=== PATIENT | female | born 1950 | race Two or more races ===

== ENCOUNTER 2016-12-14 14:14 | Inpatient (IN) | payer MEDICAID ==
[~2016-12-14] VITALS: Ht 160 cm; Wt 68.0 kg
[~2016-12-14 14:14] MED LIST: CATAPRES0.1 MG ORAL; COLACE100 MG ORAL; COZAAR25 MG ORAL; FOLIC ACID1 MG ORAL; HYDRALAZINE HCL25 M1 ORAL; HYDRALAZINE HCL50 MG ORAL; LIPITOR20 MG ORAL; MEGACE ORA400 MG/10 PO; MOM30 ML ORAL; NEPHROVITE1 TAB ORAL; NEURONTIN100 MG ORAL; NITROSTAT0.4 M1 SL; NORCO 5-325 TA1 EAC1 ORAL; NORVASC5 MG ORAL; PROCRIT3000 UNIT/ SUBQ; PROTONIX40 MG ORAL; TRAVOPROST 0.02.5 ML BOTH EYES; TYLENOL325 MG ORAL; VITAMIN C500 M1 ORAL; ZAROXOLYN2.5 MG ORAL; [UNRECOGNIZED DRUG - OTHER]; imdur; labetolol PO; mylanta; prostat PO
--- NOTE | 2016-12-14 14:42 | Emergency Room Report ---
History of Present Illness General Chief Complaint: Dyspnea/Respdistress Source: Patient, Medical Record, EMS Present Illness HPI This patient presents from a long term facility. The patient has a history of congestive heart failure, end-stage renal disease and is dialysis dependent, hypertension. 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 She has a history of diabetes. Per report, the patient was going to be transferred to dialysis today and the transfer team would not transfer the patient because her oxygen saturation was too low. So, 911 was called this patient was brought here for concern of low oxygen saturations. The patient denies shortness of breath or chest pain. The patient denies fever or chills. The patient states that she is fatigued. She has no other complaints. Allergies: Coded Allergies: No Known Allergies (Verified , 04/11/08) Patient History Past Medical History: see triage record, old chart reviewed, DM, HTN, [place], CAD, CHF, arrhyth, pneumonia, GERD, renal disease, dialysis Past Surgical History: other - Leo MCDUFFIE, Leo SMART Social History: Denies: alcohol use, drug use, smoking Last Menstrual Period: N/A Reviewed Nursing Documentation: PMH: Agreed, PSxH: Agreed Nursing Documentation-PMH Hx Diabetes: Yes Hx Dialysis: Yes Hx Neurological Problems: Yes Hx Cerebrovascular Accident: Yes Hx Dementia: Yes Review of Systems All Other Systems: negative except mentioned in HPI Physical Exam Vital Signs Date Time Temp Pulse Resp B/P Pulse Ox O2 Delivery O2 Flow Rate FiO2 12/14/16 14:05 98.4 80 20 162/78 99 Nasal Cannula Sp02 EP Interpretation: reviewed, abnormal General Appearance: no apparent distress, alert, GCS 15, non-toxic Head: normocephalic, atraumatic Eyes: bilateral eye PERRL, bilateral eye normal inspection ENT: hearing grossly normal, normal pharynx, no angioedema, normal voice Neck: full range of motion, supple/symm/no masses Respiratory: chest non-tender, lungs clear, normal breath sounds, no respiratory distress, no retraction, no accessory muscle use, speaking full sentences Cardiovascular #1: regular rate, rhythm, no edema Gastrointestinal: normal bowel sounds, non tender, soft, non-distended, no guarding, no rebound, other - obese Rectal: deferred Musculoskeletal: non-tender, other - At baseline Neurologic: alert, oriented x3, responsive, speech normal, other - At baseline. No focal findings. Psychiatric: mood/affect normal Skin: warm/dry, well hydrated Medical Decision Making Diagnostic Impression: Primary Impression: Fluid overload Additional Impression: Acute exacerbation of CHF (congestive heart failure) ER Course This patient has a known history of end-stage renal disease and is dialysis dependent. She presents with fluid overload and CHF exacerbation. Initially she did have a that she sat on remainder of 89%. However, she remained in the high 90s on several liters of nasal cannula. Regardless, this patient will need to get dialysis that she now cannot return to this for the dialysis clinic and so she will be admitted for dialysis and fluid overload. Labs Test 12/14/16 15:20 White Blood Count 6.1 K/UL (4.8-10.8) Red Blood Count 3.40 M/UL (4.20-5.40) Hemoglobin 10.9 G/DL (12.0-16.0) Hematocrit 34.9 % (37.0-47.0) Mean Corpuscular Volume 103 FL (80-99) Mean Corpuscular Hemoglobin 32.1 PG (27.0-31.0) Mean Corpuscular Hemoglobin Concent 31.2 G/DL (32.0-36.0) Red Cell Distribution Width 17.5 % (11.6-14.8) Platelet Count 94 K/UL (150-450) Mean Platelet Volume 10.3 FL (6.5-10.1) Neutrophils (%) (Auto) % (45.0-75.0) Lymphocytes (%) (Auto) % (20.0-45.0) Monocytes (%) (Auto) % (1.0-10.0) Eosinophils (%) (Auto) % (0.0-3.0) Basophils (%) (Auto) % (0.0-2.0) Prothrombin Time 10.8 SEC (9.30-11.50) Prothromb Time International Ratio 1.0 (0.9-1.1) Activated Partial Thromboplast Time 27 SEC (23-33) Sodium Level 134 mEQ/L (135-145) Potassium Level 5.5 mEQ/L (3.4-4.9) Chloride Level 92 mEQ/L (98-107) Carbon Dioxide Level 24 mEQ/L (20-30) Anion Gap 18 (5-15) Blood Urea Nitrogen 46 mg/dL (7-23) Creatinine 4.7 mg/dL (0.5-0.9) Estimat Glomerular Filtration Rate 9.3 mL/min (>60) Glucose Level 245 mg/dL (74-106) Lactic Acid Level 1.20 mmol/L (0.66-2.22) Calcium Level 8.5 mg/dL (8.6-10.2) Total Bilirubin 0.3 mg/dL (0.0-1.2) Aspartate Amino Transf (AST/SGOT) 14 U/L (5-40) Alanine Aminotransferase (ALT/SGPT) 8 U/L (3-33) Alkaline Phosphatase 88 U/L (35-104) Troponin I < 0.30 ng/mL (<=0.30) Total Protein 6.7 g/dL (6.6-8.7) Albumin 3.3 g/dL (3.5-5.2) Globulin 3.4 g/dL Albumin/Globulin Ratio 0.9 (1.0-2.7) EKG Diagnostic Results Rate: normal Rhythm: NSR ST Segments: other - NSST findings Other Impression 80's Rhythm Strip Diag. Results EP Interpretation: yes Rate: 80's Rhythm: NSR, no PVC's, no ectopy Chest X-Ray Diagnostic Results Chest X-Ray Ordered: Yes # of Views/Limited/Complete: 1 View Interpretation: no pneumothorax, other Indication: Shortness of Breath Impression: Other - Diffuse patchy opacities Date Electronically Signed: Dec 14, 2016 Time Electronically Signed: 17:15 Interpreting ER Physician: Prudencio Last Vital Signs Date Time Temp Pulse Resp B/P Pulse Ox O2 Delivery O2 Flow Rate FiO2 12/14/16 14:05 98.4 80 20 162/78 99 Nasal Cannula Disposition: ADMITTED INPATIENT Condition: Serious Referrals: NON PHYSICIAN (PCP) CARSON PRADO D.O. Dec 14, 2016 14:42
[2016-12-14 15:05] VITALS: BP 126/72
[2016-12-14 16:13] LABS: MEAN CORPUSCULAR HEMOGLOBIN 32.1 PG (27.0-31.0); MEAN CORPUSCULAR HGB CONC 31.2 G/DL (32.0-36.0); MEAN CORPUSCULAR VOLUME 103 FL (80-99); MEAN PLATELET VOLUME 10.3 FL (6.5-10.1); PLATELET COUNT 94 K/UL (150-450); RED CELL DISTRIBUTION WIDTH 17.5 % (11.6-14.8); WHITE BLOOD COUNT 6.1 K/UL (4.8-10.8)
[2016-12-14 16:14] LABS: PROTHROMBIN TIME 10.8 SEC (9.30-11.50); TROPONIN I < 0.30 ng/mL (<=0.30)
[2016-12-14 16:16] LABS: ALBUMIN/GLOBULIN RATIO 0.9 (1.0-2.7); CALCIUM 8.5 mg/dL (8.6-10.2); CREATININE 4.7 mg/dL (0.5-0.9); GLOMERULAR FILTRATION RATE 9.3 mL/min (>60); POTASSIUM 5.5 mEQ/L (3.4-4.9); TOTAL PROTEIN 6.7 g/dL (6.6-8.7)
[2016-12-14 17:18] VITALS: BP 140/87
--- NOTE | 2016-12-14 18:26 | Diagnostic Imaging Report ---
Indication: SOB Technique: One view of the chest Comparison: March 28, 2015 Findings: There is diffuse bilateral pulmonary interstitial and alveolar edema, right greater than left pleural effusions. Interim removal of previously demonstrated dialysis catheter Impression: Bilateral pulmonary edema and bilateral pleural effusions
[2016-12-14 19:10] VITALS: BP 103/80
[2016-12-14] MEDS ORDERED: ASPIRIN81 MG ORAL (20:13)
[2016-12-14] MEDS ORDERED: ASCORBIC ACID250 M1 ORAL (20:13)
[2016-12-14] MEDS ORDERED: ARTIFICIAL TEAR15 M2 OP (20:13)
[2016-12-14] MEDS ORDERED: ISOSORBIDE MONO30 M1 PO (20:13)
[2016-12-14] MEDS ORDERED: NORMODYNE200 MG ORAL (20:13)
[2016-12-14] MEDS ORDERED: BRIMONIDINE TART5 ML BOTH EYES (20:13)
[2016-12-14] MEDS ORDERED: LORazepam Inj 2mg/ml 1ml IM ONE (20:15)
[2016-12-14 20:52] LABS: ANISOCYTOSIS 1+; BASOPHILS % (MANUAL) 1 % (0-2); EOSINOPHILS % (MANUAL) 3 % (0-3); LYMPHOCYTES % (MANUAL) 13 % (20-45); NEUTROPHILS % (MANUAL) 77 % (45-75); TOTAL CELLS COUNTED 100
[2016-12-14 20:53] LABS: BAND NEUTROPHILS % (MANUAL) 0 % (0-8); HYPOCHROMASIA 1+; PLATELET ESTIMATE DECREASED; PLATELET MORPHOLOGY NORMAL
[2016-12-14 20:55] VITALS: BP 121/94
[2016-12-14] MEDS ORDERED: DuoNeb 0.5-3(2.5)mg/3ml neb HHN PRN (21:15)
[2016-12-14] MEDS ORDERED: Miralax 17gm pkt ORAL PRN (21:15)
[2016-12-14] MEDS: HydrALAZINE 25mg tab ORAL SCH (22:00)
[2016-12-14 22:47] VITALS: BP 145/57
[2016-12-14 22:54] LABS: APPEARANCE,URINE CLEAR; KETONES,URINE NEGATIVE (NEGATIVE); LEUKOCYTE ESTERASE ,URINE NEGATIVE (NEGATIVE); NITRITE,URINE NEGATIVE (NEGATIVE); PH,URINE 8 (4.5-8.0); PROTEIN,URINE 4+ (NEGATIVE); UROBILINOGEN,URINE NORMAL MG/DL (0.0-1.0)
[2016-12-14 23:21] LABS: RBC,URINE 0-2 /HPF (0 - 2); SQUAMOUS EPITHELIAL CELL,UR FEW /LPF (NONE/OCC); WBC,URINE 0-2 /HPF (0 - 2)
[2016-12-15] VITALS (12 sets, daily range): BP systolic 94–172; BP diastolic 47–92
[2016-12-15] MEDS ORDERED: LORazepam Inj 2mg/ml 1ml IV ONE ×2 (00:30→08:00)
[2016-12-15] MEDS: HydrALAZINE 25mg tab ORAL SCH ×3 (05:53→22:00)
[2016-12-15 06:26] LABS: MEAN CORPUSCULAR HEMOGLOBIN 32.9 PG (27.0-31.0); MEAN CORPUSCULAR VOLUME 103 FL (80-99); MEAN PLATELET VOLUME 9.5 FL (6.5-10.1); PLATELET COUNT 93 K/UL (150-450); RED BLOOD COUNT 3.47 M/UL (4.20-5.40); RED CELL DISTRIBUTION WIDTH 17.4 % (11.6-14.8); WHITE BLOOD COUNT 6.7 K/UL (4.8-10.8)
[2016-12-15 06:39] LABS: TROPONIN I < 0.30 ng/mL (<=0.30)
[2016-12-15 06:41] LABS: CREATININE 5.1 mg/dL (0.5-0.9); GLOMERULAR FILTRATION RATE 8.5 mL/min (>60); PHOSPHORUS 2.6 mg/dL (2.5-4.8); POTASSIUM 5.7 mEQ/L (3.4-4.9)
[2016-12-15 08:50] LABS: ANISOCYTOSIS 1+; BAND NEUTROPHILS % (MANUAL) 0 % (0-8); BASOPHILS % (MANUAL) 1 % (0-2); EOSINOPHILS % (MANUAL) 0 % (0-3); HYPOCHROMASIA 1+; LYMPHOCYTES % (MANUAL) 7 % (20-45); MACROCYTES 1+; NEUTROPHILS % (MANUAL) 86 % (45-75); PLATELET ESTIMATE DECREASED; TOTAL CELLS COUNTED 100
[2016-12-15 08:51] LABS: PLATELET MORPHOLOGY NORMAL
[2016-12-15] MEDS: Heparin 5000 units/ml inj SUBQ SCH ×2 (09:00→20:47)
[2016-12-15] MEDS ORDERED: Metolazone 5mg tab ORAL SCH (09:00)
[2016-12-15] MEDS: Losartan 25mg tab ORAL SCH (09:47)
[2016-12-15] MEDS: Labetalol 200mg tab ORAL SCH ×2 (09:48→20:44)
[2016-12-15] MEDS ORDERED: HUMALOG100 UNIT/1 SUBQ (11:34)
--- NOTE | 2016-12-15 11:51 | Consultation ---
Consult Note Consult Note asked to eval for HD management Patient non historian has a right side permacath in place This patient presents from a group home facility. The patient has a history of congestive heart failure, end-stage renal disease and is dialysis dependent, hypertension. 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 She has a history of diabetes. Per report, the patient was going to be transferred to dialysis today and the transfer team would not transfer the patient because her oxygen saturation was too low. So, 911 was called this patient was brought here for concern of low oxygen saturations. The patient denies shortness of breath or chest pain. The patient denies fever or chills. The patient states that she is fatigued. She has no other complaints. Past Medical History: see triage record, old chart reviewed, DM, HTN, [place], CAD, CHF, arrhyth, pneumonia, GERD, renal disease, dialysis Past Surgical History: other - L. AKA, L. AEA Hx Diabetes: Yes Hx Dialysis: Yes Hx Neurological Problems: Yes Hx Cerebrovascular Accident: Yes Hx Dementia: Yes Vital Signs Date Time Temp Pulse Resp B/P Pulse Ox O2 Delivery O2 Flow Rate FiO2 12/14/16 14:05 98.4 80 20 162/78 99 Nasal Cannula examined- data reviewed Assessment/Plan Primary Impression: Fluid overload, in ESRD patinet with High K Additional Impression: Acute exacerbation of CHF (congestive heart failure) h/o DM HTN Encephalopathy Plan: HD Stat ordered 12/14 at 17.21 pm still not carried out !! discussed with RN Adjust BP meds- Stop mindaltering meds- per orders DANIEL MARIEE Dec 15, 2016 11:51
--- NOTE | 2016-12-15 15:09 | History and Physical ---
History of Present Illness General Date patient seen: Dec 15, 2016 Reason for Hospitalization: Dyspnea/Respdistress Present Illness HPI 66 year old female with hx of CAD, DM, ESRF, amputation of Left arm and leg, custodial resident presents because her oxygen saturation was too low. The patient denies shortness of breath or chest pain. Her pulse oximeter was 60 %. The patient denies fever or chills. The patient states that she is fatigued. Initial CXR showed that she has extensive pulmonary edema. Allergies: Coded Allergies: No Known Allergies (Verified , 04/11/08) Medication History Scheduled Amlodipine Besylate (Norvasc), 5 MG ORAL DAILY, (Reported) Ascorbic Acid* (Vitamin C*), 500 MG ORAL DAILY, (Reported) Ascorbic Acid* (Ascorbic Acid*), Unknown Dose ORAL DAILY, (Reported) Aspirin* (Aspirin*), 81 MG ORAL DAILY, (Reported) Atorvastatin Calcium* (Lipitor*), 20 MG ORAL BEDTIME, (Reported) Brimonidine Tartrate* (Alphagan*), 1 DROP BOTH EYES TID, (Reported) Docusate Sodium* (Colace*), 100 MG ORAL TWICE A DAY, (Reported) Epoetin Alireza (Procrit), 3,000 UNIT SUBQ 3XW, (Reported) Folic Acid* (Folic Acid*), 1 MG ORAL DAILY, (Reported) Gabapentin* (Neurontin*), 100 MG ORAL TID, (Reported) Hydralazine Hcl* (Hydralazine Hcl*), 25 MG ORAL Q8HR Isosorbide Mononitrate (Isosorbide Mononitrate Er), 30 MG PO DAILY, (Reported) Labetalol HCl (Labetalol HCl), 200 MG ORAL EVERY 12 HOURS, (Reported) Losartan Potassium* (Cozaar*), 25 MG ORAL DAILY, (Reported) Megestrol Acetate (Megestrol Acetate), 200 MG PO BID, (Reported) Metolazone (Metolazone), 5 MG ORAL DAILY, (Reported) Pantoprazole* (Protonix*), 40 MG ORAL DAILY, (Reported) Polyvinyl Alcohol (Artificial Tears), 1 DROP OP TID, (Reported) Travoprost (Benzalkonium) (Travoprost 0.004% Eye Drop), 1 DROP BOTH EYES HS, ( Reported) Vitamin B Cmplx/Vit C/Folic AC (Nephro-Nathanael Tablet), 1 TAB ORAL DAILY, (Reported ) [labetolol], 200 MG PO BID, (Reported) [prostat], 30 ML PO TID, (Reported) Scheduled PRN Acetaminophen (Tylenol), 500 MG ORAL Q4HR PRN for For Pain, (Reported) Clonidine Hcl* (Catapres*), 0.1 MG ORAL EVERY 6 HOURS PRN for For High Blood Pressure, (Reported) Hydrocodone Bit/Acetaminophen 5-325* (Blanco 5-325 Tablet*), 1 TAB ORAL Q6HR PRN for For Pain, (Reported) Magnesium Hydroxide (Milk of Magnesia), 30 ML ORAL Q12HR PRN for Constipation, ( Reported) Nitroglycerin (Nitrostat), 0.4 MG SL Q5M X3 DOSES PRN for For Pain, (Reported) Miscellaneous Medications Insulin Lispro (Humalog), 0 SUBQ, (Reported) [imdur], (Reported) [mylanta ], (Reported) [reg insuling ss], (Reported) Patient History Healthcare decision maker Resuscitation status Advanced Directive on File Past Medical/Surgical History Past Medical/Surgical History: (1) Anemia (2) ESRD (end stage renal disease) on dialysis (3) Hypertension (4) Restless Review of Systems All Other Systems: negative except mentioned in HPI Physical Exam General Appearance: WD/WN, no apparent distress Lines, tubes and drains: peripheral HEENT: normocephalic, atraumatic Neck: non-tender, normal alignment Respiratory/Chest: chest wall non-tender, lungs clear Cardiovascular/Chest: normal peripheral pulses, normal rate Abdomen: normal bowel sounds, non tender Extremities: other - left leg and arm amputated Skin Exam: normal pigmentation Neurologic: woods laborer II-XII grossly normal Last 24 Hour Vital Signs Date Time Temp Pulse Resp B/P Pulse Ox O2 Delivery O2 Flow Rate FiO2 12/15/16 12:00 79 12/15/16 11:48 97.3 78 20 143/88 Room Air 12/15/16 09:48 87 138/83 12/15/16 09:48 87 138/83 12/15/16 09:47 138/83 12/15/16 09:30 91 12/15/16 08:06 98.4 87 20 138/83 96 Nasal Cannula 4.0 98 12/15/16 08:02 98.4 12/15/16 08:00 97.5 91 22 143/92 93 Nasal Cannula 2.0 12/15/16 07:02 87 20 138/83 96 Nasal Cannula 4.0 12/15/16 05:55 89 22 129/63 96 Nasal Cannula 4.0 12/15/16 05:53 129/63 12/15/16 04:13 91 24 143/92 96 Nasal Cannula 4.0 12/15/16 02:45 93 22 94/78 99 Nasal Cannula 4.0 12/15/16 00:37 86 21 151/47 96 Nasal Cannula 4.0 12/14/16 22:47 80 22 145/57 98 Nasal Cannula 4.0 12/14/16 22:00 145/57 12/14/16 20:55 83 19 121/94 97 Nasal Cannula 4.0 12/14/16 19:10 83 18 103/80 97 Nasal Cannula 3.0 12/14/16 17:18 81 140/87 12/14/16 15:05 20 126/72 96 Nasal Cannula 12/14/16 15:05 84 18 Nasal Cannula 2.0 98 Intake and Output 12/14/16 12/15/16 19:00 07:00 Output Total 160 ml Balance -160 ml Output Urine Total 160 ml Laboratory Tests Test 12/14/16 15:20 12/14/16 22:20 12/15/16 06:10 White Blood Count 6.1 K/UL (4.8-10.8) 6.7 K/UL (4.8-10.8) Red Blood Count 3.40 M/UL (4.20-5.40) L 3.47 M/UL (4.20-5.40) L Hemoglobin 10.9 G/DL (12.0-16.0) L 11.4 G/DL (12.0-16.0) L Hematocrit 34.9 % (37.0-47.0) L 35.7 % (37.0-47.0) L Mean Corpuscular Volume 103 FL (80-99) H 103 FL (80-99) H Mean Corpuscular Hemoglobin 32.1 PG (27.0-31.0) H 32.9 PG (27.0-31.0) H Mean Corpuscular Hemoglobin Concent 31.2 G/DL (32.0-36.0) L 32.0 G/DL (32.0-36.0) Red Cell Distribution Width 17.5 % (11.6-14.8) H 17.4 % (11.6-14.8) H Platelet Count 94 K/UL (150-450) L 93 K/UL (150-450) L Mean Platelet Volume 10.3 FL (6.5-10.1) H 9.5 FL (6.5-10.1) Neutrophils (%) (Auto) % (45.0-75.0) % (45.0-75.0) Lymphocytes (%) (Auto) % (20.0-45.0) % (20.0-45.0) Monocytes (%) (Auto) % (1.0-10.0) % (1.0-10.0) Eosinophils (%) (Auto) % (0.0-3.0) % (0.0-3.0) Basophils (%) (Auto) % (0.0-2.0) % (0.0-2.0) Differential Total Cells Counted 100 100 Neutrophils % (Manual) 77 % (45-75) H 86 % (45-75) H Lymphocytes % (Manual) 13 % (20-45) L 7 % (20-45) L Monocytes % (Manual) 6 % (1-10) 6 % (1-10) Eosinophils % (Manual) 3 % (0-3) 0 % (0-3) Basophils % (Manual) 1 % (0-2) 1 % (0-2) Band Neutrophils 0 % (0-8) 0 % (0-8) Platelet Estimate Decreased L Decreased L Platelet Morphology Normal Normal Hypochromasia 1+ 1+ Anisocytosis 1+ 1+ Prothrombin Time 10.8 SEC (9.30-11.50) Prothromb Time International Ratio 1.0 (0.9-1.1) Activated Partial Thromboplast Time 27 SEC (23-33) Sodium Level 134 mEQ/L (135-145) L 135 mEQ/L (135-145) Potassium Level 5.5 mEQ/L (3.4-4.9) H 5.7 mEQ/L (3.4-4.9) H Chloride Level 92 mEQ/L (98-107) L 93 mEQ/L (98-107) L Carbon Dioxide Level 24 mEQ/L (20-30) 24 mEQ/L (20-30) Anion Gap 18 (5-15) H 18 (5-15) H Blood Urea Nitrogen 46 mg/dL (7-23) H 49 mg/dL (7-23) H Creatinine 4.7 mg/dL (0.5-0.9) H 5.1 mg/dL (0.5-0.9) H Estimat Glomerular Filtration Rate 9.3 mL/min (>60) 8.5 mL/min (>60) Glucose Level 245 mg/dL (74-106) H 163 mg/dL (74-106) H Lactic Acid Level 1.20 mmol/L (0.66-2.22) Calcium Level 8.5 mg/dL (8.6-10.2) L 9.0 mg/dL (8.6-10.2) Total Bilirubin 0.3 mg/dL (0.0-1.2) Aspartate Amino Transf (AST/SGOT) 14 U/L (5-40) Alanine Aminotransferase (ALT/SGPT) 8 U/L (3-33) Alkaline Phosphatase 88 U/L (35-104) Troponin I < 0.30 ng/mL (<=0.30) < 0.30 ng/mL (<=0.30) Total Protein 6.7 g/dL (6.6-8.7) Albumin 3.3 g/dL (3.5-5.2) L 3.8 g/dL (3.5-5.2) Globulin 3.4 g/dL Albumin/Globulin Ratio 0.9 (1.0-2.7) L Urine Color Yellow Urine Appearance Clear Urine pH 8 (4.5-8.0) Urine Specific [place] 1.010 (1.005-1.035) Urine Protein 4+ (NEGATIVE) H Urine Glucose (UA) 2+ (NEGATIVE) H Urine Ketones Negative (NEGATIVE) Urine Occult Blood Negative (NEGATIVE) Urine Nitrite Negative (NEGATIVE) Urine Bilirubin Negative (NEGATIVE) Urine Urobilinogen Normal MG/DL (0.0-1.0) Urine Leukocyte Esterase Negative (NEGATIVE) Urine RBC 0-2 /HPF (0 - 2) Urine WBC 0-2 /HPF (0 - 2) Urine Squamous Epithelial Cells Few /LPF (NONE/OCC) Urine Bacteria None /HPF (NONE) Macrocytosis 1+ Phosphorus Level 2.6 mg/dL (2.5-4.8) Height (Feet): 5 Height (Inches): 3.00 Weight (Pounds): 150 Medications Current Medications Medications (Trade) Dose Ordered Sig/Jagdish Route PRN Reason Start Time Stop Time Status Last Admin Dose Admin Acetaminophen (Tylenol) 650 mg Q4H PRN ORAL Fever 12/14/16 21:15 01/13/17 21:14 12/15/16 07:54 Albuterol/ Ipratropium (DuoNeb 0.5-3(2.5)mg/3ml) 3 ml Q4H PRN HHN Shortness of Breath 12/14/16 21:15 12/19/16 21:14 Amlodipine Besylate (Norvasc) 5 mg DAILY ORAL 12/15/16 09:00 01/14/17 08:59 12/15/16 09:48 Atorvastatin Calcium (Lipitor) 20 mg BEDTIME ORAL 12/15/16 21:00 01/14/17 20:59 Clonidine HCl (Catapres) 0.1 mg Q6H PRN ORAL For High Blood Pressure 12/14/16 21:15 01/13/17 21:14 Dextrose (Dextrose 50%) STAT PRN IV Hypoglycemia 12/14/16 21:15 01/13/17 21:14 Heparin Sodium (Porcine) (Heparin 5000 units/ml) 5,000 units EVERY 12 HOURS SUBQ 12/15/16 09:00 01/14/17 08:59 Hydralazine HCl (Apresoline) 25 mg Q8HR ORAL 12/14/16 22:00 01/13/17 21:59 Labetalol HCl (Normodyne) 200 mg EVERY 12 HOURS ORAL 12/15/16 09:00 01/14/17 08:59 12/15/16 09:48 Losartan Potassium (Cozaar) 25 mg DAILY ORAL 12/15/16 09:00 01/14/17 08:59 12/15/16 09:47 Ondansetron HCl (Zofran) 4 mg Q6H PRN IVP Nausea & Vomiting 6/20/17 21:15 01/13/17 21:14 Polyethylene Glycol (Miralax) 17 gm DAILYPRN PRN ORAL Constipation 12/14/16 21:15 01/13/17 21:14 Temazepam (Restoril) 15 mg HSPRN PRN ORAL Insomnia 12/14/16 21:15 12/21/16 21:14 Assessment/Plan Problem List: (1) Acute respiratory failure ICD Codes: J96.00 - Acute respiratory failure, unspecified whether with hypoxia or hypercapnia SNOMED: 29483476 (2) Acute exacerbation of CHF (congestive heart failure) ICD Codes: I50.9 - Heart failure, unspecified SNOMED: 80469073 (3) ESRD (end stage renal disease) on dialysis ICD Codes: N18.6 - End stage renal disease; Z99.2 - Dependence on renal dialysis SNOMED: 062562823 (4) Hypertension ICD Codes: I10 - Essential (primary) hypertension SNOMED: 12889377 Assessment/Plan HD roni monitor BP check electrolytes psych evaluation for depression and restless ness dvt prophylaxis VERONICA AMIN Dec 15, 2016 15:09
--- NOTE | 2016-12-15 15:35 | Cardiology Report ---
APPROVED REPORT EXAM: Two-dimensional and M-mode echocardiogram with Doppler and color Doppler. INDICATION Left ventricular function M-Mode DIMENSIONS IVSd1.0 (0.7-1.1cm)Left Atrium (MM)4.6 (1.6-4.0cm) LVDd5.4 (3.5-5.6cm)Aortic Root2.6 (2.0-3.7cm) PWd1.1 (0.7-1.1cm)Aortic Cusp Exc.1.6 (1.5-2.0cm) LVDs4.0 (2.5-4.0cm) PWs1.4 cm Normal left ventricular chamber size. Mild global LV hypokinesis. Left ventricular ejection fraction estimated to be 40%. Normal left ventricular hypertrophy. No evidence of pericardial fat or effusion. Right cardiac chamber sizes are within normal limits. Mild left atrial enlargement by 2D. Focal aortic valve sclerosis with adequate cusp excursion Thickened mitral valve leaflets with normal excursion. Mitral annulus and aortic root calcification. Pulmonic valve not well visualized. Normal tricuspid valve structure. IVC not obtainable. A color flow and spectral Doppler study was performed and revealed: Trace aortic regurgitation. Trace mitral regurgitation. Normal left ventricular diastolic dysfunction. Moderate tricuspid regurgitation. Tricuspid systolic velocities suggests peak right ventricular systolic pressure of 40 mmHg Consistent with mild pulmonary hypertension. Pulmonic regurgitation present.
--- NOTE | 2016-12-15 15:40 | Diagnostic Imaging Report ---
Indication: DYSPNEA Technique: One view of the chest Comparison: 12/14/2016 Findings: Body habitus limits evaluation. There is suggestion of worsening parenchymal disease and possibly increased pleural fluid in the right lung. Interstitial and alveolar parenchymal disease in the left lung persists. Cardiomegaly persists. Impression: Suspect worsening parenchymal infiltrate or edema in the right lung and possibly worsening pleural fluid, over one day
--- NOTE | 2016-12-15 16:38 | Cardiology Report ---
APPROVED REPORT EKG Measurement Heart [id number] Normal sinus rhythm Nonspecific T wave abnormality Abnormal ECG
[2016-12-15] MEDS: Atorvastatin 20mg tab ORAL SCH (20:44)
[2016-12-15] MEDS: NovoLOG Insulin Flexpen SUBQ SCH (20:47)
[2016-12-16 04:07] VITALS: BP 106/75
[2016-12-16] MEDS: NovoLOG Insulin Flexpen SUBQ SCH ×4 (05:58→20:58)
[2016-12-16] MEDS: HydrALAZINE 25mg tab ORAL SCH ×3 (06:00→22:00)
[2016-12-16 07:30] LABS: TROPONIN I < 0.30 ng/mL (<=0.30)
[2016-12-16 07:55] LABS: MEAN CORPUSCULAR HEMOGLOBIN 34.3 PG (27.0-31.0); MEAN CORPUSCULAR HGB CONC 31.8 G/DL (32.0-36.0); MEAN CORPUSCULAR VOLUME 108 FL (80-99); MEAN PLATELET VOLUME 9.3 FL (6.5-10.1); PLATELET COUNT 57 K/UL (150-450); RED BLOOD COUNT 3.23 M/UL (4.20-5.40); RED CELL DISTRIBUTION WIDTH 17.4 % (11.6-14.8); WHITE BLOOD COUNT 5.9 K/UL (4.8-10.8)
[2016-12-16 07:58] LABS: ALANINE AMINOTRANSFERASE 10 U/L (3-33); ALBUMIN/GLOBULIN RATIO 1.3 (1.0-2.7); ANION GAP 20 (5-15); ASPARTATE AMINO TRANSFERASE 19 U/L (5-40); CALCIUM 8.2 mg/dL (8.6-10.2); CARBON DIOXIDE 25 mEQ/L (20-30); CHLORIDE 93 mEQ/L (98-107); CHOLESTEROL 94 mg/dL (< 200); CHOLESTEROL/HDL RATIO 1.9 (3.3-4.4); CREATININE 4.3 mg/dL (0.5-0.9); CRP QUANT 2.4 mg/dL (< 0.5); GLOMERULAR FILTRATION RATE 10.3 mL/min (>60); HEMOLYSIS 13; LDL CHOLESTEROL (CALC.) 30 mg/dL (60-99); MAGNESIUM 2.5 mg/dL (1.7-2.5); PHOSPHORUS 2.6 mg/dL (2.5-4.8); POTASSIUM 4.6 mEQ/L (3.4-4.9); SODIUM 138 mEQ/L (135-145); TOTAL PROTEIN 6.5 g/dL (6.6-8.7)
[2016-12-16 08:00] VITALS: BP 152/69
[2016-12-16 08:21] LABS: HEMOGLOBIN A1C 7.5 % (< 6.0)
[2016-12-16] MEDS: Heparin 5000 units/ml inj SUBQ SCH ×2 (09:00→21:00)
[2016-12-16] MEDS: Losartan 25mg tab ORAL SCH (09:14)
[2016-12-16] MEDS: Labetalol 200mg tab ORAL SCH ×2 (09:16→20:56)
[2016-12-16 09:48] LABS: ANISOCYTOSIS 1+; BAND NEUTROPHILS % (MANUAL) 0 % (0-8); BASOPHILS % (MANUAL) 0 % (0-2); EOSINOPHILS % (MANUAL) 0 % (0-3); LYMPHOCYTES % (MANUAL) 16 % (20-45); MACROCYTES 1+; NEUTROPHILS % (MANUAL) 77 % (45-75); PLATELET ESTIMATE DECREASED; PLATELET MORPHOLOGY NORMAL; TOTAL CELLS COUNTED 100
[2016-12-16 12:00] VITALS: BP 147/65
--- NOTE | 2016-12-16 13:08 | General Progress Note ---
Assessment/Plan Assessment/Plan Primary Impression: Fluid overload, in ESRD patinet with High K Improved after HD Additional Impression: Acute exacerbation of CHF (congestive heart failure) h/o DM HTN Encephalopathy Plan: HD done 12/15 next 12/17 Adjust BP meds- Stop mind altering meds- per orders Subjective ROS Limited/Unobtainable: No Constitutional: Reports: malaise Allergies: Coded Allergies: No Known Allergies (Verified , 04/11/08) Objective Last 24 Hour Vital Signs Date Time Temp Pulse Resp B/P Pulse Ox O2 Delivery O2 Flow Rate FiO2 12/16/16 12:00 99.5 77 18 147/65 94 Room Air 12/16/16 09:16 78 152/69 12/16/16 09:14 152/69 12/16/16 09:14 78 152/69 12/16/16 08:00 97.7 78 18 152/69 99 Room Air 12/16/16 08:00 79 12/16/16 06:00 146/63 12/16/16 04:07 98.8 81 19 106/75 94 Room Air 12/16/16 04:00 66 12/16/16 00:00 82 12/15/16 23:56 98.7 79 18 119/78 93 Room Air 12/15/16 22:00 114/57 12/15/16 20:44 84 113/64 12/15/16 20:05 98.2 84 19 113/64 95 Room Air 12/15/16 18:12 Nasal Cannula 2.0 98 12/15/16 18:08 Nasal Cannula 12/15/16 17:30 86 18 130/79 Nasal Cannula 2.0 12/15/16 16:00 87 12/15/16 16:00 97.3 79 18 172/73 93 Nasal Cannula 2.0 Intake and Output 12/15/16 12/16/16 19:00 07:00 Intake Total 410 ml Output Total 3450 ml Balance -3040 ml Intake Oral 410 ml Output Urine Total 150 ml Hemodialysis UF 3300 ml # Bowel Movements 4 Laboratory Tests 12/16/16 05:10: White Blood Count 5.9, Red Blood Count 3.23L, Hemoglobin 11.1L, Hematocrit 34.8L , Mean Corpuscular Volume 108H, Mean Corpuscular Hemoglobin 34.3H, Mean Corpuscular Hemoglobin Concent 31.8L, Red Cell Distribution Width 17.4H, Platelet Count 57L, Mean Platelet Volume 9.3, Neutrophils (%) (Auto) , Lymphocytes (%) (Auto) , Monocytes (%) (Auto) , Eosinophils (%) (Auto) , Basophils (%) (Auto) , Differential Total Cells Counted 100, Neutrophils % ( Manual) 77H, Lymphocytes % (Manual) 16L, Monocytes % (Manual) 7, Eosinophils % ( Manual) 0, Basophils % (Manual) 0, Band Neutrophils 0, Platelet Estimate DecreasedL, Platelet Morphology Normal, Anisocytosis 1+, Macrocytosis 1+, Sodium Level 138, Potassium Level 4.6, Chloride Level 93L, Carbon Dioxide Level 25, Anion Gap 20H, Blood Urea Nitrogen 33H, Creatinine 4.3H, Estimat Glomerular Filtration Rate 10.3, Glucose Level 150H, Hemoglobin A1c 7.5H, Uric Acid 5.0, Calcium Level 8.2L, Phosphorus Level 2.6, Magnesium Level 2.5, Total Bilirubin 0.3, Gamma Glutamyl Transpeptidase 60H, Aspartate Amino Transf (AST/SGOT) 19, Alanine Aminotransferase (ALT/SGPT) 10, Alkaline Phosphatase 61, Troponin I < 0.30, C-Reactive Protein, Quantitative 2.4H, Pro-B-Type Natriuretic Peptide > [id number], Total Protein 6.5L, Albumin 3.7, Globulin 2.8, Albumin/Globulin Ratio 1.3, Triglycerides Level 71, Cholesterol Level 94, LDL Cholesterol 30L, HDL Cholesterol 50, Cholesterol/HDL Ratio 1.9L, Thyroid Stimulating Hormone (TSH) 7.080H Height (Feet): 5 Height (Inches): 3.00 Weight (Pounds): 150 General Appearance: no apparent distress Cardiovascular: normal rate Respiratory/Chest: decreased breath sounds Abdomen: soft Objective other PE not changed DANIEL MARIEE Dec 16, 2016 13:08
--- NOTE | 2016-12-16 13:21 | Pulmonology Progress Note ---
Assessment/Plan Problems: (1) Acute respiratory failure (2) Acute exacerbation of CHF (congestive heart failure) (3) ESRD (end stage renal disease) on dialysis (4) Hypertension Assessment/Plan improving hd removed 3/6 liters HD in am titrate cardiac and BP meds. Subjective ROS Limited/Unobtainable: No Interval Events: c/o pain in her eyes Allergies: Coded Allergies: No Known Allergies (Verified , 04/11/08) Objective Last 24 Hour Vital Signs Date Time Temp Pulse Resp B/P Pulse Ox O2 Delivery O2 Flow Rate FiO2 12/16/16 12:00 99.5 77 18 147/65 94 Room Air 12/16/16 09:16 78 152/69 12/16/16 09:14 152/69 12/16/16 09:14 78 152/69 12/16/16 08:00 97.7 78 18 152/69 99 Room Air 12/16/16 08:00 79 12/16/16 06:00 146/63 12/16/16 04:07 98.8 81 19 106/75 94 Room Air 12/16/16 04:00 66 12/16/16 00:00 82 12/15/16 23:56 98.7 79 18 119/78 93 Room Air 12/15/16 22:00 114/57 12/15/16 20:44 84 113/64 12/15/16 20:05 98.2 84 19 113/64 95 Room Air 12/15/16 18:12 Nasal Cannula 2.0 98 12/15/16 18:08 Nasal Cannula 12/15/16 17:30 86 18 130/79 Nasal Cannula 2.0 12/15/16 16:00 87 12/15/16 16:00 97.3 79 18 172/73 93 Nasal Cannula 2.0 Intake and Output 12/15/16 12/16/16 19:00 07:00 Intake Total 410 ml Output Total 3450 ml Balance -3040 ml Intake Oral 410 ml Output Urine Total 150 ml Hemodialysis UF 3300 ml # Bowel Movements 4 General Appearance: WD/WN HEENT: normocephalic, atraumatic Respiratory/Chest: chest wall non-tender, lungs clear, normal breath sounds Breasts: no masses Cardiovascular: normal peripheral pulses Abdomen: normal bowel sounds, soft, non tender Genitourinary: normal external genitalia Extremities: no cyanosis Skin: no ulcers Neurologic/Psychiatric: craps dealer II-XII grossly normal Microbiology Date/Time Source Procedure Growth Status 12/14/16 15:35 Blood Blood Culture - Preliminary NO GROWTH AFTER 24 HOURS Resulted 12/14/16 15:20 Blood Blood Culture - Preliminary NO GROWTH AFTER 24 HOURS Resulted 12/14/16 22:20 Nasal Nares MRSA Culture - Final NO METHICILLIN RESISTANT STAPH AUREUS... Complete Laboratory Tests 12/16/16 05:10: White Blood Count 5.9, Red Blood Count 3.23L, Hemoglobin 11.1L, Hematocrit 34.8L , Mean Corpuscular Volume 108H, Mean Corpuscular Hemoglobin 34.3H, Mean Corpuscular Hemoglobin Concent 31.8L, Red Cell Distribution Width 17.4H, Platelet Count 57L, Mean Platelet Volume 9.3, Neutrophils (%) (Auto) , Lymphocytes (%) (Auto) , Monocytes (%) (Auto) , Eosinophils (%) (Auto) , Basophils (%) (Auto) , Differential Total Cells Counted 100, Neutrophils % ( Manual) 77H, Lymphocytes % (Manual) 16L, Monocytes % (Manual) 7, Eosinophils % ( Manual) 0, Basophils % (Manual) 0, Band Neutrophils 0, Platelet Estimate DecreasedL, Platelet Morphology Normal, Anisocytosis 1+, Macrocytosis 1+, Sodium Level 138, Potassium Level 4.6, Chloride Level 93L, Carbon Dioxide Level 25, Anion Gap 20H, Blood Urea Nitrogen 33H, Creatinine 4.3H, Estimat Glomerular Filtration Rate 10.3, Glucose Level 150H, Hemoglobin A1c 7.5H, Uric Acid 5.0, Calcium Level 8.2L, Phosphorus Level 2.6, Magnesium Level 2.5, Total Bilirubin 0.3, Gamma Glutamyl Transpeptidase 60H, Aspartate Amino Transf (AST/SGOT) 19, Alanine Aminotransferase (ALT/SGPT) 10, Alkaline Phosphatase 61, Troponin I < 0.30, C-Reactive Protein, Quantitative 2.4H, Pro-B-Type Natriuretic Peptide > 83620U, Total Protein 6.5L, Albumin 3.7, Globulin 2.8, Albumin/Globulin Ratio 1.3, Triglycerides Level 71, Cholesterol Level 94, LDL Cholesterol 30L, HDL Cholesterol 50, Cholesterol/HDL Ratio 1.9L, Thyroid Stimulating Hormone (TSH) 7.080H Current Medications Medications (Trade) Dose Ordered Sig/Jagdish Route PRN Reason Start Time Stop Time Status Last Admin Dose Admin Acetaminophen (Tylenol) 650 mg Q4H PRN ORAL Fever 12/14/16 21:15 01/13/17 21:14 12/15/16 07:54 Albuterol/ Ipratropium (DuoNeb 0.5-3(2.5)mg/3ml) 3 ml Q4H PRN HHN Shortness of Breath 12/14/16 21:15 12/19/16 21:14 Amlodipine Besylate (Norvasc) 5 mg DAILY ORAL 12/15/16 09:00 01/14/17 08:59 12/16/16 09:14 Atorvastatin Calcium (Lipitor) 20 mg BEDTIME ORAL 12/15/16 21:00 01/14/17 20:59 12/15/16 20:44 Clonidine HCl (Catapres) 0.1 mg Q6H PRN ORAL For High Blood Pressure 12/14/16 21:15 01/13/17 21:14 Dextrose (Dextrose 50%) STAT PRN IV Hypoglycemia 12/14/16 21:15 01/13/17 21:14 Dextrose (Dextrose 50%) STAT PRN IV Hypoglycemia 12/15/16 17:15 01/14/17 17:14 Heparin Sodium (Porcine) (Heparin 5000 units/ml) 5,000 units EVERY 12 HOURS SUBQ 12/15/16 09:00 01/14/17 08:59 Hydralazine HCl (Apresoline) 25 mg Q8HR ORAL 12/14/16 22:00 01/13/17 21:59 12/16/16 06:00 Insulin Aspart (NovoLOG) BEFORE MEALS AND HS SUBQ 12/15/16 21:00 01/14/17 20:59 12/16/16 12:22 Labetalol HCl (Normodyne) 200 mg EVERY 12 HOURS ORAL 12/15/16 09:00 01/14/17 08:59 12/16/16 09:16 Losartan Potassium (Cozaar) 25 mg DAILY ORAL 12/15/16 09:00 01/14/17 08:59 12/16/16 09:14 Olanzapine (ZyPREXA) 5 mg BEDTIME ORAL 12/16/16 21:00 01/15/17 20:59 Ondansetron HCl (Zofran) 4 mg Q6H PRN IVP Nausea & Vomiting 12/14/16 21:15 01/13/17 21:14 Polyethylene Glycol (Miralax) 17 gm DAILYPRN PRN ORAL Constipation 12/14/16 21:15 01/13/17 21:14 12/16/16 09:48 Temazepam (Restoril) 15 mg HSPRN PRN ORAL Insomnia 12/14/16 21:15 12/21/16 21:14 12/15/16 20:44 VERONICA AMIN Dec 16, 2016 13:20
--- NOTE | 2016-12-16 13:48 | Diagnostic Imaging Report ---
APPROVED REPORT CPT Code: 10950 Present Symptoms Shortness of breath RIGHT LEG: Venous imaging reveals recanalized chronic thrombus in the superficial femoral vein. The remainder of the deep venous system is within normal limits. There is no evidence of thrombus in the common femoral, popliteal or calf veins. The greater saphenous vein is also within normal limits. Doppler indicates normal spontaneous flow within these segments. There is no evidence of acute deep vein thrombosis.
--- NOTE | 2016-12-16 14:45 | Consultation ---
DATE OF CONSULTATION: HISTORY OF PRESENT ILLNESS: The patient is a 66-year-old, female, Persian speaking, has been presented with anxiety, agitation, waxing and waning consciousness, mostly up all night, last night. She is unable to provide any history. She is also delusional and she keeps talking about roommate. She also stated that, 75 dollars I would like to give the doctor. The patient is unable to understand process, communicate ,or appreciate. Information is given to her in regards to her medical condition. She is disorganized. PAST PSYCHIATRIC HISTORY: No known history of psychiatric illness and psychiatric hospitalizations. PAST MEDICAL HISTORY: Multiple medical problems including hypertension, MT, diabetes mellitus, CAD, CHF, arrhythmia, GERD, and renal disease on dialysis. ALLERGIES: No known drug allergies. SUBSTANCE ABUSE HISTORY: No history of illicit drug use or alcohol. MENTAL STATUS EXAMINATION: The patient is confused and disoriented. Mood is anxious. Affect is constricted. Congruent mood. Thought process is concrete. Thought content, no suicidal or homicidal ideation. ASSESSMENT: AXIS I Delirium due to underlying medical condition. AXIS II Deferred. AXIS III AXIS IV Low AXIS V Global assessment of functioning is 20. PLAN: 1. The patient will be started on olanzapine 5 mg at bedtime. 2. We will continue to follow and monitor her symptoms. Juan Landa M.D. DR: Mari JOB#: [id number] CC:
[2016-12-16 16:00] VITALS: BP 135/98
[2016-12-16 20:03] VITALS: BP 128/84
[2016-12-16] MEDS: Atorvastatin 20mg tab ORAL SCH (20:56)
[2016-12-16 23:57] VITALS: BP 126/55
[2016-12-17] MEDS ORDERED: DuoNeb 0.5-3(2.5)mg/3ml neb HHN PRN (01:15)
[2016-12-17 04:00] VITALS: BP 110/56
[2016-12-17] MEDS: HydrALAZINE 25mg tab ORAL SCH ×2 (05:54→14:00)
[2016-12-17] MEDS: NovoLOG Insulin Flexpen SUBQ SCH ×2 (05:55→11:30)
[2016-12-17 08:42] VITALS: BP 113/67
[2016-12-17] MEDS ORDERED: Miralax 17gm pkt ORAL PRN ×2 (08:45→21:15)
[2016-12-17] MEDS ORDERED: Losartan 25mg tab ORAL SCH (09:00)
[2016-12-17] MEDS ORDERED: Labetalol 200mg tab ORAL SCH (09:00)
[2016-12-17] MEDS ORDERED: Heparin 5000 units/ml inj SUBQ SCH (09:00)
--- NOTE | 2016-12-17 09:53 | General Progress Note ---
Assessment/Plan Status: unchanged Status Narrative On HD now Assessment/Plan Primary Impression: Fluid overload, in ESRD patinet with High K Improved after HD Additional Impression: Acute exacerbation of CHF (congestive heart failure) h/o DM HTN Encephalopathy Plan: HD 12/17 in process Adjust BP meds- Stop mind altering meds- per orders Subjective ROS Limited/Unobtainable: No Constitutional: Reports: malaise, weakness Allergies: Coded Allergies: No Known Allergies (Verified , 04/11/08) Objective Last 24 Hour Vital Signs Date Time Temp Pulse Resp B/P Pulse Ox O2 Delivery O2 Flow Rate FiO2 12/17/16 08:42 96.1 76 20 113/67 94 Room Air 12/17/16 05:54 110/56 12/17/16 04:00 98.0 76 20 110/56 97 Room Air 12/16/16 23:57 97.0 79 20 126/55 95 Room Air 12/16/16 22:00 120/84 12/16/16 20:56 82 128/84 12/16/16 20:03 97.7 82 20 128/84 97 Room Air 12/16/16 16:00 97.9 79 18 135/98 Nasal Cannula 2.0 88 12/16/16 14:27 147/65 12/16/16 12:00 78 12/16/16 12:00 99.5 77 18 147/65 94 Room Air Intake and Output 12/16/16 12/17/16 19:00 07:00 Output Total 100 ml 50 ml Balance -100 ml -50 ml Output Urine Total 100 ml 50 ml Height (Feet): 5 Height (Inches): 3.00 Weight (Pounds): 150 General Appearance: agitated, other - seen during HD Cardiovascular: tachycardia Respiratory/Chest: decreased breath sounds Abdomen: soft Objective other PE not changed DANIEL MARIEE Dec 17, 2016 09:53
[2016-12-17] MEDS ORDERED: NS 275ml ONE ×2 (10:34)
[2016-12-17] MEDS ORDERED: Tubing IV Secondary IV ONE ×2 (10:34)
[2016-12-17] MEDS ORDERED: NS Irrig 1000ml ONE (10:34)
[2016-12-17 10:52] LABS: MEAN CORPUSCULAR HEMOGLOBIN 31.8 PG (27.0-31.0); MEAN CORPUSCULAR VOLUME 106 FL (80-99); MEAN PLATELET VOLUME 10.5 FL (6.5-10.1); PLATELET COUNT 56 K/UL (150-450); RED BLOOD COUNT 3.28 M/UL (4.20-5.40); RED CELL DISTRIBUTION WIDTH 17.1 % (11.6-14.8); WHITE BLOOD COUNT 5.4 K/UL (4.8-10.8)
[2016-12-17 11:06] LABS: ALANINE AMINOTRANSFERASE 9 U/L (3-33); ALBUMIN/GLOBULIN RATIO 1.2 (1.0-2.7); ANION GAP 15 (5-15); ASPARTATE AMINO TRANSFERASE 16 U/L (5-40); CALCIUM 8.3 mg/dL (8.6-10.2); CARBON DIOXIDE 32 mEQ/L (20-30); CHLORIDE 95 mEQ/L (98-107); CREATININE 3.3 mg/dL (0.5-0.9); CRP QUANT 1.8 mg/dL (< 0.5); HEMOLYSIS 0; MAGNESIUM 2.2 mg/dL (1.7-2.5); PHOSPHORUS 2.1 mg/dL (2.5-4.8); POTASSIUM 3.7 mEQ/L (3.4-4.9); SODIUM 142 mEQ/L (135-145); TOTAL PROTEIN 6.7 g/dL (6.6-8.7); URIC ACID 3.7 mg/dL (3.0-7.5)
[2016-12-17 11:25] LABS: BAND NEUTROPHILS % (MANUAL) 0 % (0-8); BASOPHILS % (MANUAL) 0 % (0-2); EOSINOPHILS % (MANUAL) 1 % (0-3); LYMPHOCYTES % (MANUAL) 8 % (20-45); NEUTROPHILS % (MANUAL) 88 % (45-75); PLATELET ESTIMATE DECREASED; TOTAL CELLS COUNTED 100
[2016-12-17 11:26] LABS: ANISOCYTOSIS 1+; HYPOCHROMASIA 1+; MACROCYTES 1+; PLATELET MORPHOLOGY NORMAL
[2016-12-17 11:50] VITALS: BP 134/84
[2016-12-17 14:00] VITALS: BP 134/84
--- NOTE | 2016-12-17 15:25 | Pulmonology Progress Note ---
Assessment/Plan Problems: (1) Acute respiratory failure (2) Acute exacerbation of CHF (congestive heart failure) (3) ESRD (end stage renal disease) on dialysis (4) Hypertension Assessment/Plan improving HD today titrate cardiac and BP meds. dc to previous intermediate Subjective ROS Limited/Unobtainable: No Constitutional: Reports: no symptoms HEENT: Repors: no symptoms Allergies: Coded Allergies: No Known Allergies (Verified , 04/11/08) Objective Last 24 Hour Vital Signs Date Time Temp Pulse Resp B/P Pulse Ox O2 Delivery O2 Flow Rate FiO2 12/17/16 14:00 134/84 12/17/16 12:15 Nasal Cannula 2.0 12/17/16 11:50 97.1 86 20 134/84 94 Room Air 12/17/16 08:42 96.1 76 20 113/67 94 Room Air 12/17/16 08:40 Nasal Cannula 2.0 12/17/16 05:54 110/56 12/17/16 04:00 98.0 76 20 110/56 97 Room Air 12/16/16 23:57 97.0 79 20 126/55 95 Room Air 12/16/16 22:00 120/84 12/16/16 20:56 82 128/84 12/16/16 20:03 97.7 82 20 128/84 97 Room Air 12/16/16 16:00 97.9 79 18 135/98 Nasal Cannula 2.0 88 Intake and Output 12/16/16 12/17/16 19:00 07:00 Output Total 100 ml 50 ml Balance -100 ml -50 ml Output Urine Total 100 ml 50 ml General Appearance: WD/WN HEENT: normocephalic Respiratory/Chest: chest wall non-tender, lungs clear Breasts: no masses Cardiovascular: normal peripheral pulses, normal rate Abdomen: normal bowel sounds, soft, non tender Genitourinary: normal external genitalia Skin: no rash 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 Complete 12/14/16 22:20 Rectum VRE Culture - Final Enterococcus Faecalis - Vre Complete Laboratory Tests 12/17/16 10:20: White Blood Count 5.4, Red Blood Count 3.28L, Hemoglobin 10.4L, Hematocrit 34.7L , Mean Corpuscular Volume 106H, Mean Corpuscular Hemoglobin 31.8H, Mean Corpuscular Hemoglobin Concent 30.0L, Red Cell Distribution Width 17.1H, Platelet Count 56L, Mean Platelet Volume 10.5H, Neutrophils (%) (Auto) , Lymphocytes (%) (Auto) , Monocytes (%) (Auto) , Eosinophils (%) (Auto) , Basophils (%) (Auto) , Differential Total Cells Counted 100, Neutrophils % ( Manual) 88H, Lymphocytes % (Manual) 8L, Monocytes % (Manual) 3, Eosinophils % ( Manual) 1, Basophils % (Manual) 0, Band Neutrophils 0, Platelet Estimate DecreasedL, Platelet Morphology Normal, Hypochromasia 1+, Anisocytosis 1+, Macrocytosis 1+, Sodium Level 142, Potassium Level 3.7, Chloride Level 95L, Carbon Dioxide Level 32H, Anion Gap 15, Blood Urea Nitrogen 27H, Creatinine 3.3H , Estimat Glomerular Filtration Rate 14.0, Glucose Level 144H, Uric Acid 3.7, Calcium Level 8.3L, Phosphorus Level 2.1L, Magnesium Level 2.2, Total Bilirubin 0.3, Gamma Glutamyl Transpeptidase 61H, Aspartate Amino Transf (AST/SGOT) 16, Alanine Aminotransferase (ALT/SGPT) 9, Alkaline Phosphatase 60, C-Reactive Protein, Quantitative 1.8H, Pro-B-Type Natriuretic Peptide > 29060X, Total Protein 6.7, Albumin 3.7, Globulin 3.0, Albumin/Globulin Ratio 1.2 Current Medications Medications (Trade) Dose Ordered Sig/Jagdish Route PRN Reason Start Time Stop Time Status Last Admin Dose Admin Acetaminophen (Tylenol) 650 mg Q4H PRN ORAL Fever 12/17/16 01:15 01/16/17 01:14 Albuterol/ Ipratropium (DuoNeb 0.5-3(2.5)mg/3ml) 3 ml Q4H PRN HHN Shortness of Breath 12/17/16 01:15 12/22/16 01:14 Amlodipine Besylate (Norvasc) 5 mg DAILY ORAL 12/17/16 09:00 01/16/17 08:59 Atorvastatin Calcium (Lipitor) 20 mg BEDTIME ORAL 12/17/16 21:00 01/16/17 20:59 Clonidine HCl (Catapres) 0.1 mg Q6H PRN ORAL For High Blood Pressure 12/17/16 03:15 01/16/17 03:14 Dextrose (Dextrose 50%) STAT PRN IV Hypoglycemia 12/17/16 17:15 01/16/17 17:14 Dextrose (Dextrose 50%) STAT PRN IV Hypoglycemia 12/17/16 21:15 01/16/17 21:14 Hydralazine HCl (Apresoline) 25 mg Q8HR ORAL 12/17/16 06:00 01/16/17 05:59 Insulin Aspart (NovoLOG) BEFORE MEALS AND HS SUBQ 12/17/16 06:30 01/16/17 06:29 Labetalol HCl (Normodyne) 200 mg EVERY 12 HOURS ORAL 12/17/16 09:00 01/16/17 08:59 Losartan Potassium (Cozaar) 25 mg DAILY ORAL 12/17/16 09:00 01/16/17 08:59 Olanzapine (ZyPREXA) 5 mg BEDTIME ORAL 12/17/16 21:00 01/16/17 20:59 Ondansetron HCl (Zofran) 4 mg Q6H PRN IVP Nausea & Vomiting 12/17/16 03:15 01/16/17 03:14 Polyethylene Glycol (Miralax) 17 gm DAILYPRN PRN ORAL Constipation 12/17/16 08:45 01/16/17 08:44 12/17/16 08:46 Temazepam (Restoril) 15 mg HSPRN PRN ORAL Insomnia 12/17/16 02:06 12/24/16 02:05 12/17/16 02:10 VERONICA AMIN Dec 17, 2016 15:25
[2016-12-17] MEDS ORDERED: Atorvastatin 20mg tab ORAL SCH (21:00)
--- NOTE | 2016-12-18 00:30 | Progress Note ---
DATE: 12/14/2016 SUBJECTIVE: The patient continues to be confused. Presents with waxing and waning, consciousness and less agitated. Still disorganized and not able to be engaged. MENTAL STATUS EXAMINATION: She is alert and oriented times self. Mood is neutral to agitation. Affect is constricted. Congruent mood. Thought process is concrete. Thought content, no suicidal or homicidal ideation. ASSESSMENT: 1. Delirium. 2. Cognitive impairment. PLAN: The patient will be continued on current medication. Provide the patient with supportive therapy and reality orientation. Continue to follow and readjust the medication. Juan Landa M.D. DR: NING JOB#: [id number] CC:
--- NOTE | 2016-12-20 09:20 | Discharge Summary ---
Discharge Summary Hospital Course Date of Admission Dec 14, 2016 at 16:05 Date of Discharge Dec 17, 2016 at 16:27 Admitting Diagnosis CONGESTED HEART FAILUR exacerbation/fluid overload HPI Karla Thapa is a 66 year old female who was admitted on Dec 14, 2016 at 16:05 for Congestive Heart Failure Exacerbation/Fluid Hospital Course dc summary #[id number] Discharge Medications Continued Medications: Amlodipine Besylate (Norvasc) 5 Mg Tab 5 MG ORAL DAILY, TAB Ascorbic Acid* (Vitamin C*) 500 Mg Tablet 500 MG ORAL DAILY, #30 TAB 0 Refills Aspirin* (Aspirin*) 81 Mg Tab.chew 81 MG ORAL DAILY, TAB Atorvastatin Calcium* (Lipitor*) 20 Mg Tablet 20 MG ORAL BEDTIME, TAB Brimonidine Tartrate* (Alphagan*) 5 Ml Drops 1 DROP BOTH EYES TID, ML Clonidine Hcl* (Catapres*) 0.1 Mg Tablet 0.1 MG ORAL EVERY 6 HOURS PRN for For High Blood Pressure, TAB Docusate Sodium* (Colace*) 100 Mg Capsule 100 MG ORAL TWICE A DAY, CAP Epoetin Alireza (Procrit) 3,000 Unit/1 Ml Vial 3000 UNIT SUBQ 3XW, VIAL Folic Acid* (Folic Acid*) 1 Mg Tablet 1 MG ORAL DAILY, TAB Gabapentin* (Neurontin*) 100 Mg Capsule 100 MG ORAL TID, #15 CAP 0 Refills Hydralazine Hcl* (Hydralazine Hcl*) 25 Mg Tab 25 MG ORAL Q8HR, #90 TAB Hydrocodone Bit/Acetaminophen 5-325* (Sandy 5-325 Tablet*) 1 Each Tablet 1 TAB ORAL Q6HR PRN for For Pain, TAB Insulin Lispro (Humalog) 100 Unit/1 Ml Vial 0 SUBQ, #1 UNITS 0 Refills Isosorbide Mononitrate (Isosorbide Mononitrate Er) 30 Mg Tab.er.24h 30 MG PO DAILY, TAB Labetalol HCl (Labetalol HCl) 200 Mg Tablet 200 MG ORAL EVERY 12 HOURS, TAB Losartan Potassium* (Cozaar*) 25 Mg Tablet 25 MG ORAL DAILY, TAB Magnesium Hydroxide (Milk of Magnesia) 30 Ml Susp 30 ML ORAL Q12HR PRN for Constipation Megestrol Acetate (Megestrol Acetate) 400 Mg/10 Ml Susp 200 MG PO BID Metolazone (Metolazone) 2.5 Mg Tab 5 MG ORAL DAILY, #10 TAB 0 Refills Nitroglycerin (Nitrostat) 0.4 Mg Tab.subl 0.4 MG SL Q5M X3 DOSES PRN for For Pain, #25 TAB 0 Refills Pantoprazole* (Protonix*) 40 Mg Tablet.dr 40 MG ORAL DAILY, TAB Polyvinyl Alcohol (Artificial Tears) 15 Ml Drops 1 DROP OP TID for Dry Eyes, ML Vitamin B Cmplx/Vit C/Folic AC (Nephro-Nathanael Tablet) 1 Tab Tab 1 TAB ORAL DAILY, #30 TAB 0 Refills [imdur] () [labetolol] () 200 MG PO BID Discharge Discharge Disposition Patient was discharged to Discharge Diagnoses: Discharge Instructions Discharge Instructions Special Instructions I have been assigned to complete a D/C Summary on this account. I was not involved in the patient management Pamela Pringle NP (Vanchtein) Dec 20, 2016 09:20
--- NOTE | 2016-12-20 23:45 | Discharge Summary 2 SIG ---
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 Her dialysis was due today, however, the patient was unstable to go to dialysis since the oxygen saturation was in the 80s. The patient was brought in with concern for hypoxemia. The patient denied chest pain. No fever. No chills. The patient was placed on supplemental oxygen. Pulse oximetry was stable. No fever. Blood pressure 162/78, stable pulse. EKG revealed normal sinus rhythm. No acute ischemic changes. Troponin was negative. Chest x-ray revealed pulmonary edema. The patient admitted for further management. ADMITTING DIAGNOSES: Include, 1. Acute respiratory failure, due to the fluid overload. 2. Acute congestive heart failure exacerbation. 3. End-stage renal disease, on hemodialysis. 4. Hypertension. 5. Diabetes. HOSPITAL COURSE: The patient admitted. Nephrology consult was requested. The patient undergone hemodialysis as soon as possible. Supplemental oxygen. Pulmonary toilet provided as needed. Pulse oximetry was stable prior to discharge on two liter oxygen. Followup chest x-ray also revealed pulmonary edema. ProBNP elevated. Echocardiogram revealed ejection fraction of 40%. Moderate tricuspid regurgitation and right ventricular systolic pressure of 40 consistent with mild pulmonary hypertension. Blood sugar was managed with sliding scale insulin, was stable. Blood pressure was managed with the current regimen of beta-jose juan, ARB, and hydralazine. Aspirin and statin were continued. The patient on medical management for congestive heart failure with beta-jose juan and ARB. Diuretic as needed. Venous duplex right lower extremity was done and revealed no evidence of acute DVT, but demonstrated recanalized chronic thrombus. The patient was stable for return back to [facility]. DISCHARGE DIAGNOSES: Include, 1. Acute respiratory failure, secondary to fluid overload, resolved. 2. Acute systolic congestive heart failure exacerbation, improved. 3. End-stage renal disease, on hemodialysis. 4. Hypertension. 5. Diabetes. 6. Cardiomyopathy. 7. Delirium secondary to general medical condition. Of note, psychiatrist has seen and evaluated the patient due to the periods of agitation and confusion. The patient was started on Zyprexa, recommended to continue monitoring the patient at the [facility] facility and optimize her psychiatric medication regimen. DISCHARGE MEDICATIONS: See medication reconciliation list. DISCHARGE INSTRUCTIONS: The patient discharged to [facility] facility. Follow up with medical doctor at the facility. Antonella Ly M.D. I have been assigned to dictate discharge summary on this account and I was not involved in the patient's management. Pamela hilliardhowie NMaryellenPMaryellen DR: NENA JOB#: [id number] CC:
== END 2016-12-17 16:27 | DRG 194 ==
LOC: EDBD 14:14 → EMR 14:26 → 2E 16:05 → UNDOADMIN 16:05 → EDBEDREQ 12-15 01:01 → 2E 12-15 09:01 → 4W 12-16 22:05
PROC: 5A1D60Z (ICD-10-PCS; principal; 2016-12-15)
DX: I50.23 Acute on chronic systolic (congestive) heart failure (principal); J96.00 Acute respiratory failure, unspecified whether with hypoxia or hypercapnia; G93.40 Encephalopathy, unspecified; I12.0 Hypertensive chronic kidney disease with stage 5 chronic kidney disease or end stage renal disease; N18.6 End stage renal disease; F05 Delirium due to known physiological condition; I07.1 Rheumatic tricuspid insufficiency; E87.79 Other fluid overload; I42.9 Cardiomyopathy, unspecified; Z99.2 Dependence on renal dialysis; E11.22 Type 2 diabetes mellitus with diabetic chronic kidney disease; Z79.4 Long term (current) use of insulin; Z89.612 Acquired absence of left leg above knee; Z89.222 Acquired absence of left upper limb above elbow; Z86.73 Personal history of transient ischemic attack (TIA), and cerebral infarction without residual deficits; I25.2 Old myocardial infarction; I25.10 Atherosclerotic heart disease of native coronary artery without angina pectoris; K21.9 Gastro-esophageal reflux disease without esophagitis
CPT/HCPCS: 36415; 71010; 80048; 80053; 80061; 80069; 81003; 82962; 82977; 83036; 83605; 83735; 83880; 84100; 84443; 84484; 84550; 85007; 85025; 85610; 85730; 86140; 87040; 87081; 93005; 93306; 93971; J1815

== ENCOUNTER 2017-02-07 18:48 | Inpatient (IN) | payer MEDICAID ==
[~2017-02-07] VITALS: Ht 149.9 cm; Wt 60.3 kg
[~2017-02-07 18:48] MED LIST changes: +ARTIFICIAL TEAR15 M2 OP; +ASCORBIC ACID250 M1 ORAL; +ASPIRIN81 MG ORAL; +BRIMONIDINE TART5 ML BOTH EYES; +HUMALOG100 UNIT/1 SUBQ; +ISOSORBIDE MONO30 M1 PO; +NORMODYNE200 MG ORAL
[2017-02-07] MEDS ORDERED: Albuterol ud Inhalation ONE (18:50)
--- NOTE | 2017-02-07 19:04 | Emergency Room Report ---
History of Present Illness General Chief Complaint: Dyspnea/Respdistress Source: Patient, Medical Record, EMS Present Illness HPI 67YOF with desaturation at SNF ?70s on RA Improved with O2 Patient not providing additional HPI now EMR, November admission EF 40% Ruled out for DVT Acute CHF, known pleural effusion Multiple extremities amputated Allergies: Coded Allergies: No Known Allergies (Verified , 04/11/08) Patient History Past Medical History: DM, HTN, other - pleural effusion Past Surgical History: other - see hpi Pertinent Family History: none Social History: Denies: alcohol use, drug use, smoking Last Menstrual Period: na Now: No Immunizations: UTD Reviewed Nursing Documentation: PMH: Agreed, PSxH: Agreed Nursing Documentation-PMH Past Medical History: No History, Except For Hx Cardiac Problems: Yes - chf, thrombocytopenia, high cholesterol, arrythmia, anemia, Hx Hypertension: Yes Hx Pacemaker: No Hx COPD: No Hx Diabetes: Yes Hx Cancer: No Hx Gastrointestinal Problems: Yes - gerd, Hx Dialysis: Yes - t-th-sat History Of Psychiatric Problem: Yes - depression, Hx Neurological Problems: Yes Hx Cerebrovascular Accident: No Hx Dementia: Yes Hx Seizures: No Review of Systems All Other Systems: limited - Limited by medical emegrnecy Physical Exam Vital Signs Date Time Temp Pulse Resp B/P Pulse Ox O2 Delivery O2 Flow Rate FiO2 02/07/17 18:25 98.4 73 48 168/90 97 Nasal Cannula 4.0 Sp02 EP Interpretation: reviewed, normal General Appearance: normal inspection, well appearing, no apparent distress, alert, GCS 15, non-toxic Head: normocephalic, atraumatic Eyes: bilateral eye EOMI, bilateral eye PERRL ENT: normal ENT inspection, hearing grossly normal, normal voice Neck: normal inspection, full range of motion, supple, no bony tend Respiratory: normal inspection, decreased breath sounds, accessory muscle use, wheezing Cardiovascular #1: regular rate, rhythm, no edema Gastrointestinal: normal inspection, normal bowel sounds, non tender, soft, no guarding, no hernia Genitourinary: no CVA tenderness Musculoskeletal: normal inspection, back normal, normal range of motion, Tariq' s Sign negative Neurologic: normal inspection, alert, oriented x3, responsive, engineering technician parking III-XII nml as tested, motor strength/tone normal, speech normal Psychiatric: normal inspection, judgement/insight normal, mood/affect normal Procedures Critical Care Time Critical Care Time CC time 30 minutes for acute SOB, desaturation Bedside monitoring on bipap Also includes labs, possile Abx, review of EMR, d/w admitting hospitalist, review of labs Medical Decision Making Medicare Attestation I Bernardo Bautista MD hereby attest that the medical record entry for date of service, 02/07/17 accurately reflects signatures/notations that I made in my capacity as MD when I treated/diagnosed the above listed Medicare beneficiary. I attest that this information is true, accurate and complete to the best of my knowledge. I understand that any falsification, omission, or concealment of material fact may subject me to administrative, civil, or criminal liability. This patient warrants hospital admission for extreme of age and has a condition that cannot be treated as outpatient. Diagnostic Impression: Primary Impression: Dyspnea Qualified Codes: R06.00 - Dyspnea, unspecified Additional Impressions: Pleural effusion on right Acute on chronic congestive heart failure Qualified Codes: I50.9 - Heart failure, unspecified Hyperkalemia ER Course Improved on bipap - lasix also given No leuks. H&H stable. ECG NSR. No peaked Twaves. Trop 0. HyperK - treated with insulin, albuterol, kayexelate, Calcium Endorsed to Dr Ly for [facility] admit at 827pm EKG Diagnostic Results Rate: normal, other - no peaked Twaves Rhythm: NSR ST Segments: no acute changes ASA given to the pt in ED: No Rhythm Strip Diag. Results EP Interpretation: yes Rate: 76 Rhythm: NSR, no PVC's, no ectopy Chest X-Ray Diagnostic Results Chest X-Ray Diagnostic Results : Chest X-Ray Ordered: Yes # of Views/Limited/Complete: 1 View Indication: Shortness of Breath EP Interpretation: Yes Interpretation: other - Unchanged from November 2016 xray. Right pleural effusion Last Vital Signs Date Time Temp Pulse Resp B/P Pulse Ox O2 Delivery O2 Flow Rate FiO2 02/07/17 18:25 98.4 73 48 168/90 97 Nasal Cannula 4.0 Status: improved Disposition: ADMITTED INPATIENT Condition: Critical BERNARDO BAUTISTA M.D. Feb 07, 2017 19:04
[2017-02-07 19:27] LABS: MEAN CORPUSCULAR HEMOGLOBIN 36.3 PG (27.0-31.0); MEAN CORPUSCULAR HGB CONC 32.1 G/DL (32.0-36.0); MEAN CORPUSCULAR VOLUME 113 FL (80-99); PLATELET COUNT 52 K/UL (150-450); RED BLOOD COUNT 3.19 M/UL (4.20-5.40); RED CELL DISTRIBUTION WIDTH 17.2 % (11.6-14.8); WHITE BLOOD COUNT 5.6 K/UL (4.8-10.8)
[2017-02-07 19:29] LABS: BASOPHILS % (AUTO) 2.1 % (0.0-2.0); EOSINOPHILS % (AUTO) 1.3 % (0.0-3.0); LYMPHOCYTES % (AUTO) 14.7 % (20.0-45.0); MONOCYTES % (AUTO) 9.4 % (1.0-10.0); NEUTROPHILS % (AUTO) 72.5 % (45.0-75.0)
[2017-02-07 19:48] LABS: TROPONIN I < 0.30 ng/mL (<=0.30)
[2017-02-07 19:51] LABS: ALBUMIN/GLOBULIN RATIO 1.4 (1.0-2.7); CALCIUM 8.7 mg/dL (8.6-10.2); CREATININE 6.1 mg/dL (0.5-0.9); GLOMERULAR FILTRATION RATE 6.9 mL/min (>60); TOTAL PROTEIN 7.2 g/dL (6.6-8.7)
[2017-02-07 20:01] LABS: CKMB 3.9 ng/mL (< 3.8)
[2017-02-07] MEDS: Sodium Polystyrene Sulfonate 15gm Powder ORAL ONE ×2 (20:15→20:21)
[2017-02-07] MEDS ORDERED: Calcium Gluconate 1gm/10ml vial IVP ONE ×2 (20:15→21:30)
[2017-02-07] MEDS ORDERED: Albuterol ud Inhalation HHN ONE (20:15)
[2017-02-07 20:58] VITALS: BP 176/57
[2017-02-07] MEDS ORDERED: Zolpidem 5mg tab ORAL PRN (21:30)
[2017-02-07] MEDS ORDERED: Miralax 17gm pkt ORAL PRN (21:30)
[2017-02-07] MEDS ORDERED: DuoNeb 0.5-3(2.5)mg/3ml neb HHN PRN (21:30)
[2017-02-07] MEDS ORDERED: Mylanta II UD 30ml ORAL PRN (21:30)
[2017-02-07] MEDS ORDERED: Sodium Polystyrene Sulfonate 15gm Powder ORAL ONE (21:30)
--- NOTE | 2017-02-07 21:30 | History and Physical ---
History of Present Illness General Date patient seen: Feb 07, 2017 Reason for Hospitalization: Dyspnea/Respdistress Present Illness HPI 66 year old female with hx of CAD, DM, ESRF, amputation of Left arm and leg, detention resident presents because her oxygen saturation was too low. Her pulse oximeter was 60%. The patient denies fever or chills. The patient states that she is fatigued. Initial CXR showed that she has extensive pulmonary edema and effusion. Pt was put on BIPAP and transferring to [facility]. Allergies: Coded Allergies: No Known Allergies (Verified , 04/11/08) Medication History Scheduled Amlodipine Besylate (Norvasc), 5 MG ORAL DAILY, (Reported) Ascorbic Acid* (Vitamin C*), 500 MG ORAL DAILY, (Reported) Ascorbic Acid* (Ascorbic Acid*), Unknown Dose ORAL DAILY, (Reported) Aspirin* (Aspirin*), 81 MG ORAL DAILY, (Reported) Atorvastatin Calcium* (Lipitor*), 20 MG ORAL BEDTIME, (Reported) Brimonidine Tartrate* (Alphagan*), 1 DROP BOTH EYES TID, (Reported) Docusate Sodium* (Colace*), 100 MG ORAL TWICE A DAY, (Reported) Epoetin Alireza (Procrit), 3,000 UNIT SUBQ 3XW, (Reported) Folic Acid* (Folic Acid*), 1 MG ORAL DAILY, (Reported) Gabapentin* (Neurontin*), 100 MG ORAL TID, (Reported) Hydralazine Hcl* (Hydralazine Hcl*), 25 MG ORAL Q8HR Isosorbide Mononitrate (Isosorbide Mononitrate Er), 30 MG PO DAILY, (Reported) Labetalol HCl (Labetalol HCl), 200 MG ORAL EVERY 12 HOURS, (Reported) Losartan Potassium* (Cozaar*), 25 MG ORAL DAILY, (Reported) Megestrol Acetate (Megestrol Acetate), 200 MG PO BID, (Reported) Metolazone (Metolazone), 5 MG ORAL DAILY, (Reported) Pantoprazole* (Protonix*), 40 MG ORAL DAILY, (Reported) Polyvinyl Alcohol (Artificial Tears), 1 DROP OP TID, (Reported) Travoprost (Benzalkonium) (Travoprost 0.004% Eye Drop), 1 DROP BOTH EYES HS, ( Reported) Vitamin B Cmplx/Vit C/Folic AC (Nephro-Nathanael Tablet), 1 TAB ORAL DAILY, (Reported ) [labetolol], 200 MG PO BID, (Reported) [prostat], 30 ML PO TID, (Reported) Scheduled PRN Acetaminophen (Tylenol), 500 MG ORAL Q4HR PRN for For Pain, (Reported) Clonidine Hcl* (Catapres*), 0.1 MG ORAL EVERY 6 HOURS PRN for For High Blood Pressure, (Reported) Hydrocodone Bit/Acetaminophen 5-325* ([place] 5-325 Tablet*), 1 TAB ORAL Q6HR PRN for For Pain, (Reported) Magnesium Hydroxide (Milk of Magnesia), 30 ML ORAL Q12HR PRN for Constipation, ( Reported) Nitroglycerin (Nitrostat), 0.4 MG SL Q5M X3 DOSES PRN for For Pain, (Reported) Miscellaneous Medications Insulin Lispro (Humalog), 0 SUBQ, (Reported) [imdur], (Reported) [mylanta ], (Reported) [reg insuling ss], (Reported) Patient History Healthcare decision maker Resuscitation status Advanced Directive on File Past Medical/Surgical History Past Medical/Surgical History: (1) Amputation of left arm (2) Amputated left leg (3) ESRD (end stage renal disease) on dialysis (4) Hypertension Review of Systems All Other Systems: negative except mentioned in HPI Physical Exam General Appearance: WD/WN Lines, tubes and drains: peripheral HEENT: normocephalic, atraumatic Neck: non-tender, normal alignment Respiratory/Chest: chest wall non-tender, lungs clear Breasts: no masses Cardiovascular/Chest: normal peripheral pulses Abdomen: normal bowel sounds, non tender Genitourinary/Rectal: normal genital exam Extremities: normal range of motion, pitting - left arm and leg amputated, other Skin Exam: normal pigmentation Last 24 Hour Vital Signs Date Time Temp Pulse Resp B/P Pulse Ox O2 Delivery O2 Flow Rate FiO2 02/07/17 21:12 73 14 100 Bi-pap 100 02/07/17 21:12 73 14 02/07/17 21:06 73 20 100 Facial 100 02/07/17 20:58 98.4 76 14 176/57 100 Bi-pap 15.0 100 8/14/17 19:45 75 14 Bi-pap 15.0 100 02/07/17 19:10 81 20 100 Facial 100 02/07/17 19:10 81 20 02/07/17 18:25 98.4 73 48 168/90 97 Nasal Cannula 4.0 Laboratory Tests Test 02/07/17 18:55 White Blood Count 5.6 K/UL (4.8-10.8) Red Blood Count 3.19 M/UL (4.20-5.40) L Hemoglobin 11.6 G/DL (12.0-16.0) L Hematocrit 36.1 % (37.0-47.0) L Mean Corpuscular Volume 113 FL (80-99) H Mean Corpuscular Hemoglobin 36.3 PG (27.0-31.0) H Mean Corpuscular Hemoglobin Concent 32.1 G/DL (32.0-36.0) Red Cell Distribution Width 17.2 % (11.6-14.8) H Platelet Count 52 K/UL (150-450) L Mean Platelet Volume 10.0 FL (6.5-10.1) Neutrophils (%) (Auto) 72.5 % (45.0-75.0) Lymphocytes (%) (Auto) 14.7 % (20.0-45.0) L Monocytes (%) (Auto) 9.4 % (1.0-10.0) Eosinophils (%) (Auto) 1.3 % (0.0-3.0) Basophils (%) (Auto) 2.1 % (0.0-2.0) H Sodium Level 133 mEQ/L (135-145) L Potassium Level 7.0 mEQ/L (3.4-4.9) *H Chloride Level 96 mEQ/L (98-107) L Carbon Dioxide Level 20 mEQ/L (20-30) Anion Gap 17 (5-15) H Blood Urea Nitrogen 51 mg/dL (7-23) H Creatinine 6.1 mg/dL (0.5-0.9) H Estimat Glomerular Filtration Rate 6.9 mL/min (>60) Glucose Level 369 mg/dL (74-106) H Calcium Level 8.7 mg/dL (8.6-10.2) Total Bilirubin 0.4 mg/dL (0.0-1.2) Aspartate Amino Transf (AST/SGOT) 14 U/L (5-40) Alanine Aminotransferase (ALT/SGPT) 11 U/L (3-33) Alkaline Phosphatase 82 U/L (35-104) Total Creatine Kinase 109 U/L (26-140) Creatine Kinase MB 3.9 ng/mL (< 3.8) H Creatine Kinase MB Relative Index 3.5 Troponin I < 0.30 ng/mL (<=0.30) Total Protein 7.2 g/dL (6.6-8.7) Albumin 4.2 g/dL (3.5-5.2) Globulin 3.0 g/dL Albumin/Globulin Ratio 1.4 (1.0-2.7) Height (Feet): 4 Height (Inches): 11.00 Weight (Pounds): 140 Assessment/Plan Problem List: (1) Acute respiratory failure ICD Codes: J96.00 - Acute respiratory failure, unspecified whether with hypoxia or hypercapnia SNOMED: 89980728 (2) Pleural effusion on right ICD Codes: J90 - Pleural effusion, not elsewhere classified SNOMED: 98066352 (3) Hypertension ICD Codes: I10 - Essential (primary) hypertension SNOMED: 26192123 (4) ESRD (end stage renal disease) on dialysis ICD Codes: N18.6 - End stage renal disease; Z99.2 - Dependence on renal dialysis SNOMED: 119700561 (5) Amputation of left arm ICD Codes: Z89.202 - Acquired absence of left upper limb, unspecified level SNOMED: 651560012 (6) Fluid overload ICD Codes: E87.70 - Fluid overload, unspecified SNOMED: 40420505 (7) Amputated left leg ICD Codes: Z89.612 - Acquired absence of left leg above knee SNOMED: 825807519 Assessment/Plan Hd roni thoracentesis titrate bipap check electrolytes dct prophylaxis VERONICA AMIN Feb 07, 2017 21:30
[2017-02-07 23:30] VITALS: BP 134/86
[2017-02-07 23:40] VITALS: BP 156/77
[2017-02-08] VITALS: BP 123/71
[2017-02-08] MEDS: HydrALAZINE 25mg tab ORAL SCH ×4 (00:20→21:58)
[2017-02-08] MEDS: Morphine Sulfate 2mg/ml Inj IVP PRN (02:15)
[2017-02-08 04:00] VITALS: BP 135/71
[2017-02-08] MEDS ORDERED: Calcium Gluconate 1gm/10ml vial IVP ONE (06:15)
[2017-02-08] MEDS ORDERED: Sodium Polystyrene Sulfonate 15gm Powder ORAL ONE ×2 (06:15)
[2017-02-08 08:00] VITALS: BP 140/42
[2017-02-08] MEDS: Losartan 25mg tab ORAL SCH (08:19)
[2017-02-08] MEDS: Labetalol 200mg tab ORAL SCH ×2 (08:20→20:40)
[2017-02-08] MEDS: Aspirin Baby 81mg ORAL SCH (08:22)
--- NOTE | 2017-02-08 08:23 | Pulmonology Progress Note ---
Assessment/Plan Problems: (1) Acute respiratory failure (2) Pleural effusion on right (3) Hypertension (4) ESRD (end stage renal disease) on dialysis (5) Amputation of left arm (6) Fluid overload (7) Amputated left leg Assessment/Plan thoracentesis HD ativan /haldol for agitation check cxr in am Subjective ROS Limited/Unobtainable: No Interval Events: agitated, pulled her neck line Constitutional: Reports: no symptoms HEENT: Repors: no symptoms Respiratory: Reports: no symptoms Allergies: Coded Allergies: No Known Allergies (Verified , 04/11/08) Objective Last 24 Hour Vital Signs Date Time Temp Pulse Resp B/P Pulse Ox O2 Delivery O2 Flow Rate FiO2 02/08/17 06:55 88 18 99 Facial 75 02/08/17 06:00 135/71 02/08/17 05:10 83 15 100 Facial 100 02/08/17 04:00 77 02/08/17 04:00 15.0 100 02/08/17 04:00 98.0 75 24 135/71 100 Bi-pap 15.0 100 02/08/17 03:10 80 22 100 Facial 100 02/08/17 02:45 98.9 02/08/17 01:22 80 22 100 Facial 100 02/08/17 00:43 69 02/08/17 00:20 156/77 02/08/17 00:00 98.9 77 24 123/71 100 Bi-pap 15.0 100 02/08/17 00:00 15.0 100 02/07/17 23:40 98.9 24 156/77 100 Bi-pap 15.0 100 02/07/17 23:30 98.9 80 24 134/86 100 Room Air 02/07/17 23:30 80 24 134/86 100 Room Air 02/07/17 23:20 80 22 100 Facial 100 02/07/17 21:12 73 14 100 Bi-pap 100 02/07/17 21:12 73 14 02/07/17 21:06 73 20 100 Facial 100 02/07/17 20:58 98.4 76 14 176/57 100 Bi-pap 15.0 100 02/07/17 19:45 75 14 Bi-pap 15.0 100 02/07/17 19:10 81 20 100 Facial 100 02/07/17 19:10 81 20 02/07/17 18:25 98.4 73 48 168/90 97 Nasal Cannula 4.0 Intake and Output 02/07/17 02/08/17 19:00 07:00 Intake Total 300 ml Balance 300 ml Intake Oral 300 ml # Voids 1 General Appearance: WD/WN HEENT: normocephalic, atraumatic Respiratory/Chest: chest wall non-tender, lungs clear Cardiovascular: normal peripheral pulses, normal rate Abdomen: normal bowel sounds, no organomegaly Extremities: no cyanosis, no clubbing Skin: no rash Neurologic/Psychiatric: cupola tapper helper II-XII grossly normal Laboratory Tests 02/07/17 18:55: White Blood Count 5.6, Red Blood Count 3.19L, Hemoglobin 11.6L, Hematocrit 36.1L , Mean Corpuscular Volume 113H, Mean Corpuscular Hemoglobin 36.3H, Mean Corpuscular Hemoglobin Concent 32.1, Red Cell Distribution Width 17.2H, Platelet Count 52L, Mean Platelet Volume 10.0, Neutrophils (%) (Auto) 72.5, Lymphocytes (%) (Auto) 14.7L, Monocytes (%) (Auto) 9.4, Eosinophils (%) (Auto) 1.3, Basophils (%) (Auto) 2.1H, Sodium Level 133L, Potassium Level 7.0*H, Chloride Level 96L, Carbon Dioxide Level 20, Anion Gap 17H, Blood Urea Nitrogen 51H, Creatinine 6.1H, Estimat Glomerular Filtration Rate 6.9, Glucose Level 369H , Calcium Level 8.7, Total Bilirubin 0.4, Aspartate Amino Transf (AST/SGOT) 14, Alanine Aminotransferase (ALT/SGPT) 11, Alkaline Phosphatase 82, Total Creatine Kinase 109, Creatine Kinase MB 3.9H, Creatine Kinase MB Relative Index 3.5, Troponin I < 0.30, Total Protein 7.2, Albumin 4.2, Globulin 3.0, Albumin/ Globulin Ratio 1.4 Current Medications Medications (Trade) Dose Ordered Sig/Jagdish Route PRN Reason Start Time Stop Time Status Last Admin Dose Admin Acetaminophen (Tylenol) 650 mg Q4H PRN ORAL T>100.5 02/07/17 21:30 03/09/17 21:29 Al Hydroxide/Mg Hydroxide (Mylanta II) 30 ml Q6H PRN ORAL dyspepsia 02/07/17 21:30 03/09/17 21:29 Albuterol/ Ipratropium (DuoNeb 0.5-3(2.5)mg/3ml) 3 ml Q6H PRN HHN dyspnea 02/07/17 21:30 02/12/17 21:29 Amlodipine Besylate (Norvasc) 5 mg DAILY ORAL 02/08/17 09:00 03/10/17 08:59 Aspirin (ASA) 81 mg DAILY ORAL 02/08/17 09:00 03/10/17 08:59 Atorvastatin Calcium (Lipitor) 20 mg BEDTIME ORAL 02/08/17 21:00 03/10/17 20:59 Clonidine HCl (Catapres) 0.1 mg Q4H PRN ORAL SBP > 160 mmHg 02/07/17 21:30 03/09/17 21:29 Dextrose (Dextrose 50%) STAT PRN IV Hypoglycemia 02/07/17 21:30 03/09/17 21:29 Heparin Sodium (Porcine) (Heparin 5000 units/ml) 5,000 units EVERY 12 HOURS SUBQ 02/08/17 09:00 03/10/17 08:59 UNV Hydralazine HCl (Apresoline) 25 mg Q8HR ORAL 02/07/17 22:00 03/09/17 21:59 02/08/17 00:20 Labetalol HCl (Normodyne) 200 mg EVERY 12 HOURS ORAL 02/08/17 09:00 03/10/17 08:59 Losartan Potassium (Cozaar) 25 mg DAILY ORAL 02/08/17 09:00 03/10/17 08:59 Metolazone (Zaroxolyn) 5 mg DAILY ORAL 02/08/17 09:00 03/10/17 08:59 Morphine Sulfate (Morphine Sulfate) 1 mg Q4H PRN IVP PAIN 4-10 02/07/17 21:30 02/14/17 21:29 02/08/17 02:15 Ondansetron HCl (Zofran) 4 mg Q6H PRN IVP Nausea & Vomiting 02/07/17 21:30 03/09/17 21:29 Pantoprazole (Protonix) 40 mg DAILY ORAL 02/08/17 09:00 03/10/17 08:59 Polyethylene Glycol (Miralax) 17 gm HSPRN PRN ORAL Constipation 02/07/17 21:30 03/09/17 21:29 Zolpidem Tartrate (Ambien) 5 mg HSPRN PRN ORAL Insomnia 02/07/17 21:30 03/09/17 21:29 VERONICA AMIN Feb 08, 2017 08:22
[2017-02-08] MEDS ORDERED: metOLazone 2.5 MG TAB ORAL SCH (09:00)
[2017-02-08] MEDS ORDERED: Heparin 5000 units/ml inj SUBQ SCH (09:00)
[2017-02-08 09:10] LABS: MEAN CORPUSCULAR HEMOGLOBIN 34.2 PG (27.0-31.0); MEAN CORPUSCULAR HGB CONC 30.6 G/DL (32.0-36.0); MEAN CORPUSCULAR VOLUME 112 FL (80-99); MEAN PLATELET VOLUME 10.2 FL (6.5-10.1); PLATELET COUNT 60 K/UL (150-450); RED BLOOD COUNT 3.16 M/UL (4.20-5.40); RED CELL DISTRIBUTION WIDTH 16.8 % (11.6-14.8); WHITE BLOOD COUNT 7.3 K/UL (4.8-10.8)
[2017-02-08 09:45] LABS: INR 1.1 (0.9-1.1); PROTHROMBIN TIME 11.8 SEC (9.30-11.50)
[2017-02-08 09:51] LABS: ALBUMIN/GLOBULIN RATIO 1.3 (1.0-2.7); CALCIUM 9.4 mg/dL (8.6-10.2); CREATININE 6.6 mg/dL (0.5-0.9); GLOMERULAR FILTRATION RATE 6.3 mL/min (>60); POTASSIUM 5.7 mEQ/L (3.4-4.9); TOTAL PROTEIN 7.2 g/dL (6.6-8.7)
[2017-02-08 09:53] LABS: HEMOGLOBIN A1C 8.3 % (< 6.0)
[2017-02-08 10:01] LABS: THYROID STIMULATING HORMONE 10.7 uIU/mL (0.300-4.500)
[2017-02-08 10:16] LABS: BAND NEUTROPHILS % (MANUAL) 1 % (0-8); EOSINOPHILS % (MANUAL) 3 % (0-3); LYMPHOCYTES % (MANUAL) 15 % (20-45); NEUTROPHILS % (MANUAL) 74 % (45-75); TOTAL CELLS COUNTED 100
[2017-02-08 10:17] LABS: ANISOCYTOSIS 1+; BASOPHILS % (MANUAL) 0 % (0-2); OVALOCYTES 1+; PLATELET ESTIMATE DECREASED; PLATELET MORPHOLOGY NORMAL
[2017-02-08 10:18] LABS: HYPOCHROMASIA 1+
[2017-02-08] MEDS: Lidocaine 1% Plain 30 ml INJ SCH (11:00)
[2017-02-08] MEDS: Heparin 2000 units/Ns 1000ml INJ SCH (11:00)
[2017-02-08 12:00] VITALS: BP 121/63
[2017-02-08 12:10] LABS: MEAN CORPUSCULAR HEMOGLOBIN 34.6 PG (27.0-31.0); MEAN CORPUSCULAR HGB CONC 31.6 G/DL (32.0-36.0); MEAN CORPUSCULAR VOLUME 110 FL (80-99); MEAN PLATELET VOLUME 9.9 FL (6.5-10.1); PLATELET COUNT 44 K/UL (150-450); RED BLOOD COUNT 3.35 M/UL (4.20-5.40); RED CELL DISTRIBUTION WIDTH 16.6 % (11.6-14.8); WHITE BLOOD COUNT 6.9 K/UL (4.8-10.8)
--- NOTE | 2017-02-08 12:10 | Diagnostic Imaging Report ---
Indication: SOB Technique: One view of the chest Comparison: 12/15/2016 Findings: Again demonstrated are bilateral interstitial and alveolar infiltrates versus edema, appearing worse than on the prior study, worse on the right on the left. There is evidence of a large right pleural effusion. The left pleural space is probably clear. The heart is enlarged. There is a stent in the right arm Impression: Bilateral diffuse interstitial and alveolar infiltrates versus edema, right greater than left. Large right pleural effusion
[2017-02-08 12:26] LABS: ALBUMIN/GLOBULIN RATIO 1.3 (1.0-2.7); CALCIUM 8.7 mg/dL (8.6-10.2); CREATININE 4.2 mg/dL (0.5-0.9); GLOMERULAR FILTRATION RATE 10.6 mL/min (>60); POTASSIUM 3.8 mEQ/L (3.4-4.9); TOTAL PROTEIN 7.5 g/dL (6.6-8.7)
--- NOTE | 2017-02-08 12:26 | Consultation ---
Consult Note Consult Note Chief Complaint: Dyspnea/Respdistress 67YOF with desaturation at SNF ?70s on RA Improved with O2 Patient not providing additional HPI now EMR, November admission EF 40% Ruled out for DVT Acute CHF, known pleural effusion Multiple extremities amputated Past Medical History: DM, HTN, other - pleural effusion Hx Cardiac Problems: Yes - chf, thrombocytopenia, high cholesterol, arrythmia, anemia, Hx Hypertension: Yes Hx Diabetes: Yes Hx Gastrointestinal Problems: Yes - gerd, Hx Dialysis: Yes - t-th-sat History Of Psychiatric Problem: Yes - depression, Hx Neurological Problems: Yes Hx Dementia: Yes examined- data reviewed Assessment/Plan Primary Impression: Fluid overload, in ESRD patinet with High K Additional Impression: Acute exacerbation of CHF (congestive heart failure) h/o DM HTN Encephalopathy Plan: HD Stat in process at the time of visit discussed with RN Adjust BP meds- Stop mindaltering meds- per orders DANIEL MARIEE Feb 08, 2017 12:26
[2017-02-08 13:16] LABS: BAND NEUTROPHILS % (MANUAL) 7 % (0-8); BASOPHILS % (MANUAL) 1 % (0-2); LYMPHOCYTES % (MANUAL) 4 % (20-45); NEUTROPHILS % (MANUAL) 84 % (45-75); PLATELET MORPHOLOGY NORMAL; TOTAL CELLS COUNTED 100
[2017-02-08 13:17] LABS: ANISOCYTOSIS 1+; EOSINOPHILS % (MANUAL) 0 % (0-3); HYPOCHROMASIA 1+; PLATELET ESTIMATE DECREASED
[2017-02-08] MEDS ORDERED: Lidocaine 1% MPF 10mg/ml 5ml INJ ONE (15:00)
[2017-02-08 16:00] VITALS: BP 138/79
--- NOTE | 2017-02-08 16:45 | Cardiology Report ---
APPROVED REPORT EKG Measurement Heart [id number] [place] [id number] Normal sinus rhythm Nonspecific T wave abnormality Abnormal ECG
[2017-02-08] MEDS ORDERED: Dextrose 10% 1,000 ML IV SCH (17:30)
[2017-02-08 20:00] VITALS: BP 171/50
[2017-02-08] MEDS: Dyna-Hex 2% Top Sol 8oz TOPIC SCH (20:40)
[2017-02-08] MEDS ORDERED: Atorvastatin 20mg tab ORAL SCH (21:00)
[2017-02-09] VITALS: BP 101/55
[2017-02-09 04:00] VITALS: BP 131/53
[2017-02-09] MEDS: Morphine Sulfate 2mg/ml Inj IVP PRN ×2 (04:12→13:58)
[2017-02-09] MEDS: HydrALAZINE 25mg tab ORAL SCH (05:31)
[2017-02-09 05:39] LABS: ALANINE AMINOTRANSFERASE 10 U/L (3-33); ALBUMIN/GLOBULIN RATIO 1.4 (1.0-2.7); ANION GAP 16 (5-15); ASPARTATE AMINO TRANSFERASE 20 U/L (5-40); CALCIUM 8.4 mg/dL (8.6-10.2); CARBON DIOXIDE 29 mEQ/L (20-30); CHLORIDE 93 mEQ/L (98-107); CREATININE 5.1 mg/dL (0.5-0.9); CRP QUANT 1.4 mg/dL (< 0.5); GLOMERULAR FILTRATION RATE 8.5 mL/min (>60); HEMOLYSIS 3; MAGNESIUM 2.4 mg/dL (1.7-2.5); SODIUM 138 mEQ/L (135-145); TOTAL PROTEIN 6.5 g/dL (6.6-8.7); URIC ACID 5.8 mg/dL (3.0-7.5)
[2017-02-09 05:50] LABS: MEAN CORPUSCULAR HEMOGLOBIN 35.1 PG (27.0-31.0); MEAN CORPUSCULAR HGB CONC 31.7 G/DL (32.0-36.0); MEAN CORPUSCULAR VOLUME 111 FL (80-99); MEAN PLATELET VOLUME 11.6 FL (6.5-10.1); PLATELET COUNT 45 K/UL (150-450); RED BLOOD COUNT 2.91 M/UL (4.20-5.40); RED CELL DISTRIBUTION WIDTH 16.9 % (11.6-14.8); WHITE BLOOD COUNT 7.1 K/UL (4.8-10.8)
[2017-02-09 08:00] VITALS: BP 105/62
[2017-02-09] MEDS: Labetalol 200mg tab ORAL SCH ×2 (09:00→21:47)
[2017-02-09] MEDS: Losartan 25mg tab ORAL SCH (09:00)
--- NOTE | 2017-02-09 09:36 | Diagnostic Imaging Report ---
Indication: IV Technique: Procedure performed at bedside. Procedural timeout performed. Ultrasound confirms patent compressible right internal jugular vein. Total sterile technique, including sterile probe cover and sterile gel, sterile gloves, hand hygiene, hat, mask, sterile gown, large sterile drape, and preparation with 2% chlorhexidine utilized.Local anesthesia with 1% lidocaine. Under real-time ultrasound guidance, puncture right internal jugular vein using 18-gauge needle, passage 0.035 guidewire, over which was passed serial dilators and then a right transjugular central venous catheter. Completion chest radiograph obtained, demonstrating catheter tip position at high right atrium. Impression: Successful placement of right jugular central venous catheter, as described.
[2017-02-09] MEDS: Dyna-Hex 2% Top Sol 8oz TOPIC SCH (09:38)
[2017-02-09] MEDS: Aspirin Baby 81mg ORAL SCH (09:38)
[2017-02-09] MEDS: Lidocaine 1% Plain 30 ml INJ SCH (11:00)
[2017-02-09] MEDS: Heparin 2000 units/Ns 1000ml INJ SCH (11:00)
--- NOTE | 2017-02-09 11:28 | Pulmonology Progress Note ---
Assessment/Plan Problems: (1) Acute respiratory failure (2) Pleural effusion on right (3) Hypertension (4) ESRD (end stage renal disease) on dialysis (5) Amputation of left arm (6) Fluid overload (7) Amputated left leg Assessment/Plan thoracentesis can not be done becasue of low PLT HD done, 2.2 liters revomed IJ line was placed ativan /haldol for agitation check cxr in am Subjective ROS Limited/Unobtainable: Yes Interval Events: agitated at times Allergies: Coded Allergies: No Known Allergies (Verified , 04/11/08) Objective Last 24 Hour Vital Signs Date Time Temp Pulse Resp B/P Pulse Ox O2 Delivery O2 Flow Rate FiO2 02/09/17 09:10 86 20 Venturi Mask 10.0 45 02/09/17 09:00 105/62 02/09/17 09:00 84 105/62 02/09/17 09:00 84 105/62 02/09/17 08:00 10.0 35 02/09/17 08:00 99.5 83 20 105/62 94 Venturi Mask 45 02/09/17 08:00 84 02/09/17 07:35 82 22 Venturi Mask 10.0 45 02/09/17 05:31 90/62 02/09/17 04:42 98.3 02/09/17 04:00 84 02/09/17 04:00 98.5 86 20 131/53 96 Mechanical Ventilator 50 02/09/17 04:00 15.0 100 02/09/17 00:00 98.3 79 19 101/55 97 Venturi Mask 50 02/09/17 00:00 78 02/09/17 00:00 15.0 100 02/08/17 21:58 148/66 02/08/17 20:40 81 171/56 02/08/17 20:00 80 02/08/17 20:00 97.0 81 19 171/50 100 Bi-pap 60 02/08/17 20:00 15.0 100 02/08/17 17:13 66 18 100 Facial 60 02/08/17 16:00 15.0 100 02/08/17 16:00 97.4 67 15 138/79 100 Bi-pap 75 02/08/17 16:00 64 02/08/17 14:30 85 22 99 Facial 75 02/08/17 14:00 121/63 02/08/17 12:30 75 22 99 Facial 75 02/08/17 12:00 15.0 100 02/08/17 12:00 68 02/08/17 12:00 97.6 67 14 121/63 100 Bi-pap 02/08/17 11:30 Bi-pap 75 Intake and Output 02/08/17 02/09/17 19:00 07:00 Intake Total 30 ml 370 ml Output Total 2250 ml Balance -2220 ml 370 ml IV Total 30 ml 370 ml Output Hemodialysis UF 2250 ml # Voids 1 # Bowel Movements 1 2 General Appearance: WD/WN HEENT: normocephalic, atraumatic Respiratory/Chest: chest wall non-tender, lungs clear Cardiovascular: normal peripheral pulses, normal rate Abdomen: normal bowel sounds, soft, non tender Genitourinary: normal external genitalia Extremities: no cyanosis Skin: no lesions Neurologic/Psychiatric: negative assembler II-XII grossly normal, abnormal gait Lymphatic: no neck adenopathy Laboratory Tests 02/08/17 12:00: White Blood Count 6.9, Red Blood Count 3.35L, Hemoglobin 11.6L, Hematocrit 36.7L , Mean Corpuscular Volume 110H, Mean Corpuscular Hemoglobin 34.6H, Mean Corpuscular Hemoglobin Concent 31.6L, Red Cell Distribution Width 16.6H, Platelet Count 44L, Mean Platelet Volume 9.9, Neutrophils (%) (Auto) , Lymphocytes (%) (Auto) , Monocytes (%) (Auto) , Eosinophils (%) (Auto) , Basophils (%) (Auto) , Differential Total Cells Counted 100, Neutrophils % ( Manual) 84H, Lymphocytes % (Manual) 4L, Monocytes % (Manual) 4, Eosinophils % ( Manual) 0, Basophils % (Manual) 1, Band Neutrophils 7, Platelet Estimate DecreasedL, Platelet Morphology Normal, Hypochromasia 1+, Anisocytosis 1+, Sodium Level 139, Potassium Level 3.8, Chloride Level 96L, Carbon Dioxide Level 28, Anion Gap 15, Blood Urea Nitrogen 30#H, Creatinine 4.2H, Estimat Glomerular Filtration Rate 10.6, Glucose Level 7*L, Calcium Level 8.7, Total Bilirubin 0.9 , Aspartate Amino Transf (AST/SGOT) 29, Alanine Aminotransferase (ALT/SGPT) 12, Alkaline Phosphatase 65, Total Protein 7.5, Albumin 4.3, Globulin 3.2, Albumin/ Globulin Ratio 1.3 02/09/17 04:00: White Blood Count 7.1, Red Blood Count 2.91L, Hemoglobin 10.2L, Hematocrit 32.3L , Mean Corpuscular Volume 111H, Mean Corpuscular Hemoglobin 35.1H, Mean Corpuscular Hemoglobin Concent 31.7L, Red Cell Distribution Width 16.9H, Platelet Count 45L, Mean Platelet Volume 11.6H, Neutrophils (%) (Auto) , Lymphocytes (%) (Auto) , Monocytes (%) (Auto) , Eosinophils (%) (Auto) , Basophils (%) (Auto) , Sodium Level 138, Potassium Level 4.0, Chloride Level 93L , Carbon Dioxide Level 29, Anion Gap 16H, Blood Urea Nitrogen 41H, Creatinine 5.1H, Estimat Glomerular Filtration Rate 8.5, Glucose Level 175#H, Calcium Level 8.4L, Total Bilirubin 0.4, Aspartate Amino Transf (AST/SGOT) 20, Alanine Aminotransferase (ALT/SGPT) 10, Alkaline Phosphatase 59, Total Protein 6.5L, Albumin 3.8, Globulin 2.7, Albumin/Globulin Ratio 1.4, Uric Acid 5.8, Phosphorus Level 4.0, Magnesium Level 2.4, C-Reactive Protein, Quantitative 1.4H , Pro-B-Type Natriuretic Peptide > 26294O Current Medications Medications (Trade) Dose Ordered Sig/Jagdish Route PRN Reason Start Time Stop Time Status Last Admin Dose Admin Acetaminophen (Tylenol) 650 mg Q4H PRN ORAL T>100.5 02/07/17 21:30 03/09/17 21:29 Albuterol/ Ipratropium (DuoNeb 0.5-3(2.5)mg/3ml) 3 ml Q6H PRN HHN dyspnea 02/07/17 21:30 02/12/17 21:29 Amlodipine Besylate (Norvasc) 5 mg DAILY ORAL 02/08/17 09:00 03/10/17 08:59 Aspirin (ASA) 81 mg DAILY ORAL 02/08/17 09:00 03/10/17 08:59 02/09/17 09:38 Atorvastatin Calcium (Lipitor) 20 mg BEDTIME ORAL 02/08/17 21:00 03/10/17 20:59 02/08/17 20:40 Chlorhexidine Gluconate 1 applic 1 applic DAILY TOPIC 02/08/17 21:00 03/10/17 20:59 02/09/17 09:38 Clonidine HCl (Catapres) 0.1 mg Q4H PRN ORAL SBP > 160 mmHg 02/07/17 21:30 03/09/17 21:29 Dextrose (D10w) 1,000 ml @ 30 mls/hr Q24H IV 02/08/17 17:30 03/10/17 17:29 02/08/17 17:16 Dextrose (Dextrose 50%) STAT PRN IV Hypoglycemia 02/07/17 21:30 03/09/17 21:29 02/08/17 16:38 Heparin Sodium/ Sodium Chloride (Heparin 2000 units/Ns 1000ml premix) 2,000 unit ONCE INJ 02/08/17 11:00 02/09/17 23:59 Hydralazine HCl (Apresoline) 25 mg Q8HR ORAL 02/07/17 22:00 03/09/17 21:59 02/08/17 21:58 Labetalol HCl (Normodyne) 200 mg EVERY 12 HOURS ORAL 02/08/17 09:00 03/10/17 08:59 02/08/17 20:40 Lidocaine HCl (Xylocaine 1% 30ml) 30 ml ONCE INJ 02/08/17 11:00 02/09/17 23:59 Losartan Potassium (Cozaar) 25 mg DAILY ORAL 02/08/17 09:00 03/10/17 08:59 Morphine Sulfate (Morphine Sulfate) 1 mg Q4H PRN IVP PAIN 4-10 02/07/17 21:30 02/14/17 21:29 02/09/17 04:12 Ondansetron HCl (Zofran) 4 mg Q6H PRN IVP Nausea & Vomiting 02/07/17 21:30 03/09/17 21:29 Pantoprazole (Protonix) 40 mg DAILY ORAL 02/08/17 09:00 03/10/17 08:59 02/09/17 09:32 Polyethylene Glycol (Miralax) 17 gm HSPRN PRN ORAL Constipation 02/07/17 21:30 03/09/17 21:29 Zolpidem Tartrate (Ambien) 5 mg HSPRN PRN ORAL Insomnia 02/07/17 21:30 03/09/17 21:29 VERONICA AMIN Feb 09, 2017 11:28
[2017-02-09 12:00] VITALS: BP 127/63
[2017-02-09] MEDS ORDERED: Lidocaine 1% MPF 10mg/ml 5ml INJ ONE (14:15)
--- NOTE | 2017-02-09 14:56 | General Progress Note ---
Assessment/Plan Status: unchanged Assessment/Plan Primary Impression: Fluid overload, in ESRD patinet with High K Additional Impression: Acute exacerbation of CHF (congestive heart failure) h/o DM HTN Encephalopathy Plan: HD 02/08 next 02/10 discussed with RN Adjust BP meds- Stop mindaltering meds- per orders Subjective ROS Limited/Unobtainable: No Constitutional: Reports: malaise, weakness Allergies: Coded Allergies: No Known Allergies (Verified , 04/11/08) Objective Last 24 Hour Vital Signs Date Time Temp Pulse Resp B/P Pulse Ox O2 Delivery O2 Flow Rate FiO2 02/09/17 12:00 10.0 35 02/09/17 12:00 97.7 88 22 127/63 98 Venturi Mask 45 02/09/17 12:00 90 02/09/17 09:10 86 20 Venturi Mask 10.0 45 02/09/17 09:00 105/62 02/09/17 09:00 84 105/62 02/09/17 09:00 84 105/62 02/09/17 08:00 10.0 35 02/09/17 08:00 99.5 83 20 105/62 94 Venturi Mask 45 02/09/17 08:00 84 02/09/17 07:35 82 22 Venturi Mask 10.0 45 02/09/17 05:31 90/62 02/09/17 04:42 98.3 02/09/17 04:00 84 02/09/17 04:00 98.5 86 20 131/53 96 Mechanical Ventilator 50 02/09/17 04:00 15.0 100 02/09/17 00:00 98.3 79 19 101/55 97 Venturi Mask 50 02/09/17 00:00 78 02/09/17 00:00 15.0 100 02/08/17 21:58 148/66 02/08/17 20:40 81 171/56 02/08/17 20:00 80 02/08/17 20:00 97.0 81 19 171/50 100 Bi-pap 60 02/08/17 20:00 15.0 100 02/08/17 17:13 66 18 100 Facial 60 02/08/17 16:00 15.0 100 02/08/17 16:00 97.4 67 15 138/79 100 Bi-pap 75 8/15/17 16:00 64 Intake and Output 02/08/17 02/09/17 19:00 07:00 Intake Total 30 ml 370 ml Output Total 2250 ml Balance -2220 ml 370 ml IV Total 30 ml 370 ml Output Hemodialysis UF 2250 ml # Voids 1 # Bowel Movements 1 2 Laboratory Tests 02/09/17 04:00: White Blood Count 7.1, Red Blood Count 2.91L, Hemoglobin 10.2L, Hematocrit 32.3L , Mean Corpuscular Volume 111H, Mean Corpuscular Hemoglobin 35.1H, Mean Corpuscular Hemoglobin Concent 31.7L, Red Cell Distribution Width 16.9H, Platelet Count 45L, Mean Platelet Volume 11.6H, Neutrophils (%) (Auto) , Lymphocytes (%) (Auto) , Monocytes (%) (Auto) , Eosinophils (%) (Auto) , Basophils (%) (Auto) , Sodium Level 138, Potassium Level 4.0, Chloride Level 93L , Carbon Dioxide Level 29, Anion Gap 16H, Blood Urea Nitrogen 41H, Creatinine 5.1H, Estimat Glomerular Filtration Rate 8.5, Glucose Level 175#H, Uric Acid 5.8 , Calcium Level 8.4L, Phosphorus Level 4.0, Magnesium Level 2.4, Total Bilirubin 0.4, Aspartate Amino Transf (AST/SGOT) 20, Alanine Aminotransferase ( ALT/SGPT) 10, Alkaline Phosphatase 59, C-Reactive Protein, Quantitative 1.4H, Pro-B-Type Natriuretic Peptide > 57466M, Total Protein 6.5L, Albumin 3.8, Globulin 2.7, Albumin/Globulin Ratio 1.4 Height (Feet): 4 Height (Inches): 11.00 Weight (Pounds): 131 General Appearance: mild distress Cardiovascular: tachycardia Respiratory/Chest: decreased breath sounds, rhonchi - bilaterally Abdomen: soft DANIEL MARIEE Feb 09, 2017 14:56
[2017-02-09 16:00] VITALS: BP 105/65
[2017-02-09] MEDS ORDERED: Morphine Sulfate 2mg/ml Inj SUBQ PRN (16:00)
[2017-02-09 20:00] VITALS: BP 122/91
[2017-02-09] MEDS ORDERED: HydrALAZINE 10mg Tab ORAL SCH (22:00)
[2017-02-09] MEDS ORDERED: DuoNeb 0.5-3(2.5)mg/3ml neb HHN PRN (23:19)
[2017-02-09] MEDS ORDERED: Miralax 17gm pkt ORAL PRN (23:20)
[2017-02-10] VITALS: BP 126/85
[2017-02-10 04:00] VITALS: BP 125/69
[2017-02-10] MEDS: HydrALAZINE 10mg Tab ORAL SCH ×3 (06:00→21:47)
[2017-02-10 08:00] VITALS: BP 145/84
[2017-02-10] MEDS: Dyna-Hex 2% Top Sol 8oz TOPIC SCH (08:13)
--- NOTE | 2017-02-10 08:36 | Diagnostic Imaging Report ---
Indications: DYSPNEA Technique: Portable AP chest Findings: Comparison: 02/07/17 Poor image quality limits evaluation. Cardiac, pulmonary vascular redistribution, bilateral interstitial infiltrates, alveolar opacity right upper lobe, prominent right pleural effusion persist unchanged, aside from lesser fluid in the right minor fissure. Right basal opacification less prominent. No new abnormality identified. IMPRESSION: Persistent bilateral congestive changes with probable shifting of right pleural effusion, otherwise unchanged Persistent focal alveolar opacity right upper lobe--alveolar pulmonary edema versus superimposed pneumonia, stable No new abnormality
[2017-02-10] MEDS: Losartan 25mg tab ORAL SCH (09:21)
--- NOTE | 2017-02-10 11:48 | General Progress Note ---
Assessment/Plan Status: unchanged Assessment/Plan Primary Impression: Fluid overload, in ESRD patinet with High K Additional Impression: Acute exacerbation of CHF (congestive heart failure) h/o DM HTN Encephalopathy Plan: HD today 02/10 discussed with RN Adjust BP meds- Stop mindaltering meds- per orders Subjective ROS Limited/Unobtainable: No Constitutional: Reports: malaise, weakness Allergies: Coded Allergies: No Known Allergies (Verified , 04/11/08) Objective Last 24 Hour Vital Signs Date Time Temp Pulse Resp B/P Pulse Ox O2 Delivery O2 Flow Rate FiO2 02/10/17 09:21 145/84 02/10/17 09:21 70 145/84 02/10/17 09:10 98 Nasal Cannula 4.0 02/10/17 09:10 Nasal Cannula 4.0 02/10/17 09:09 70 22 Nasal Cannula 4.0 02/10/17 08:00 97.5 81 20 145/84 99 Nasal Cannula 2.0 02/10/17 06:00 123/83 02/10/17 04:00 97.9 84 20 125/69 96 Nasal Cannula 4.0 02/10/17 00:00 97.6 85 20 126/85 97 Nasal Cannula 4.0 02/09/17 21:47 122/91 02/09/17 21:47 88 122/91 02/09/17 21:19 66 20 Nasal Cannula 4.0 36 02/09/17 21:19 Nasal Cannula 4.0 36 02/09/17 21:19 96 Nasal Cannula 4.0 36 02/09/17 20:00 98.4 88 20 122/91 95 Nasal Cannula 4.0 02/09/17 16:00 99.5 87 20 105/65 96 Nasal Cannula 3.0 02/09/17 15:28 3.0 02/09/17 15:27 68 02/09/17 12:00 10.0 35 02/09/17 12:00 97.7 88 22 127/63 98 Venturi Mask 45 02/09/17 12:00 90 Intake and Output 02/09/17 02/10/17 19:00 07:00 Intake Total 360 ml Balance 360 ml Intake Oral 360 ml # Voids 1 Height (Feet): 4 Height (Inches): 11.00 Weight (Pounds): 128 General Appearance: mild distress Cardiovascular: tachycardia Respiratory/Chest: decreased breath sounds Abdomen: distended Objective other PE not changed DANIEL MARIEE Feb 10, 2017 11:48
[2017-02-10 12:00] VITALS: BP 146/88
[2017-02-10 16:00] VITALS: BP 150/77
[2017-02-10 16:46] LABS: MEAN CORPUSCULAR HEMOGLOBIN 35.4 PG (27.0-31.0); MEAN CORPUSCULAR HGB CONC 32.3 G/DL (32.0-36.0); MEAN CORPUSCULAR VOLUME 110 FL (80-99); MEAN PLATELET VOLUME 11.5 FL (6.5-10.1); PLATELET COUNT 43 K/UL (150-450); RED BLOOD COUNT 2.86 M/UL (4.20-5.40); RED CELL DISTRIBUTION WIDTH 16.2 % (11.6-14.8); WHITE BLOOD COUNT 7.1 K/UL (4.8-10.8)
[2017-02-10 16:50] LABS: BASOPHILS % (AUTO) 1.7 % (0.0-2.0); EOSINOPHILS % (AUTO) 0.7 % (0.0-3.0); LYMPHOCYTES % (AUTO) 10.5 % (20.0-45.0)
--- NOTE | 2017-02-10 16:50 | Pulmonology Progress Note ---
Assessment/Plan Problems: (1) Acute respiratory failure (2) Pleural effusion on right (3) Hypertension (4) ESRD (end stage renal disease) on dialysis (5) Amputation of left arm (6) Fluid overload (7) Amputated left leg Assessment/Plan thoracentesis can not be done becasue of low PLT HD done, 2.2 liters revomed IJ line was placed ativan /haldol for agitation more awake, and comfortable Subjective ROS Limited/Unobtainable: No Constitutional: Reports: no symptoms HEENT: Repors: no symptoms Respiratory: Reports: no symptoms Allergies: Coded Allergies: No Known Allergies (Verified , 04/11/08) Objective Last 24 Hour Vital Signs Date Time Temp Pulse Resp B/P Pulse Ox O2 Delivery O2 Flow Rate FiO2 02/10/17 16:00 97.7 82 24 150/77 99 Venturi Mask 10.0 02/10/17 16:00 Venturi Mask 10.0 02/10/17 13:23 146/88 02/10/17 12:00 97.2 82 20 146/88 97 Nasal Cannula 4.0 02/10/17 09:21 145/84 02/10/17 09:21 70 145/84 02/10/17 09:10 98 Nasal Cannula 4.0 02/10/17 09:10 Nasal Cannula 4.0 02/10/17 09:09 70 22 Nasal Cannula 4.0 02/10/17 08:00 97.5 81 20 145/84 99 Nasal Cannula 2.0 02/10/17 06:00 123/83 02/10/17 04:00 97.9 84 20 125/69 96 Nasal Cannula 4.0 02/10/17 00:00 97.6 85 20 126/85 97 Nasal Cannula 4.0 02/09/17 21:47 122/91 02/09/17 21:47 88 122/91 02/09/17 21:19 66 20 Nasal Cannula 4.0 36 02/09/17 21:19 Nasal Cannula 4.0 36 02/09/17 21:19 96 Nasal Cannula 4.0 36 02/09/17 20:00 98.4 88 20 122/91 95 Nasal Cannula 4.0 Intake and Output 02/09/17 02/10/17 19:00 07:00 Intake Total 360 ml Balance 360 ml Intake Oral 360 ml # Voids 1 General Appearance: WD/WN HEENT: normocephalic, atraumatic Breasts: no masses Cardiovascular: normal peripheral pulses, normal rate Abdomen: normal bowel sounds, no organomegaly Extremities: no cyanosis Skin: no rash Laboratory Tests 02/10/17 16:28: White Blood Count [Pending], Red Blood Count [Pending], Hemoglobin [Pending], Hematocrit [Pending], Mean Corpuscular Volume [Pending], Mean Corpuscular Hemoglobin [Pending], Mean Corpuscular Hemoglobin Concent [Pending], Red Cell Distribution Width [Pending], Platelet Count [Pending], Mean Platelet Volume [ Pending], Neutrophils (%) (Auto) [Pending], Lymphocytes (%) (Auto) [Pending], Monocytes (%) (Auto) [Pending], Eosinophils (%) (Auto) [Pending], Basophils (%) (Auto) [Pending], Sodium Level [Pending], Potassium Level [Pending], Chloride Level [Pending], Carbon Dioxide Level [Pending], Blood Urea Nitrogen [Pending], Creatinine [Pending], Estimat Glomerular Filtration Rate [Pending], Glucose Level [Pending], Uric Acid [Pending], Calcium Level [Pending], Phosphorus Level [Pending], Magnesium Level [Pending], Total Bilirubin [Pending], Aspartate Amino Transf (AST/SGOT) [Pending], Alanine Aminotransferase (ALT/SGPT) [Pending] , Alkaline Phosphatase [Pending], C-Reactive Protein, Quantitative [Pending], Pro-B-Type Natriuretic Peptide [Pending], Total Protein [Pending], Albumin [ Pending], Globulin [Pending] Current Medications Medications (Trade) Dose Ordered Sig/Jagdish Route PRN Reason Start Time Stop Time Status Last Admin Dose Admin Acetaminophen (Tylenol) 650 mg Q4H PRN ORAL T>100.5 02/10/17 01:30 03/12/17 01:29 Albuterol/ Ipratropium (DuoNeb 0.5-3(2.5)mg/3ml) 3 ml Q6H PRN HHN dyspnea 02/09/17 23:19 02/14/17 23:18 Amlodipine Besylate (Norvasc) 2.5 mg DAILY ORAL 02/10/17 09:00 03/12/17 08:59 02/10/17 09:21 Chlorhexidine Gluconate (Rosaura-Hex 2%) 1 applic DAILY TOPIC 02/10/17 09:00 03/12/17 08:59 Dextrose (Dextrose 50%) STAT PRN IV Hypoglycemia 02/09/17 23:19 03/11/17 23:18 Hydralazine HCl (Apresoline) 10 mg Q8HR ORAL 02/10/17 06:00 03/12/17 05:59 Losartan Potassium (Cozaar) 25 mg DAILY ORAL 02/10/17 09:00 03/12/17 08:59 02/10/17 09:21 Morphine Sulfate (Morphine Sulfate) 1 mg Q4H PRN SUBQ PAIN 4-10 02/10/17 00:00 02/17/17 00:00 Ondansetron HCl (Zofran) 4 mg Q6H PRN IVP Nausea & Vomiting 02/09/17 23:20 03/11/17 23:19 Polyethylene Glycol (Miralax) 17 gm HSPRN PRN ORAL Constipation 02/09/17 23:20 03/11/17 23:19 Zolpidem Tartrate (Ambien) 5 mg HSPRN PRN ORAL Insomnia 02/09/17 23:20 03/11/17 23:19 VERONICA AMIN Feb 10, 2017 16:50
[2017-02-10 17:00] LABS: CRP QUANT 3.1 mg/dL (< 0.5); MAGNESIUM 2.6 mg/dL (1.7-2.5); PHOSPHORUS 6.4 mg/dL (2.5-4.8); URIC ACID 7.8 mg/dL (3.0-7.5)
[2017-02-10 17:02] LABS: ALANINE AMINOTRANSFERASE 11 U/L (3-33); ALBUMIN/GLOBULIN RATIO 1.9 (1.0-2.7); ANION GAP 19 (5-15); ASPARTATE AMINO TRANSFERASE 20 U/L (5-40); CALCIUM 8.2 mg/dL (8.6-10.2); CARBON DIOXIDE 26 mEQ/L (20-30); CHLORIDE 91 mEQ/L (98-107); CREATININE 6.6 mg/dL (0.5-0.9); GLOMERULAR FILTRATION RATE 6.3 mL/min (>60); HEMOLYSIS 8; POTASSIUM 3.8 mEQ/L (3.4-4.9); SODIUM 136 mEQ/L (135-145); TOTAL PROTEIN 6.7 g/dL (6.6-8.7)
[2017-02-10 19:32] VITALS: BP 124/68
[2017-02-10] MEDS: Morphine Sulfate 2mg/ml Inj SUBQ PRN (20:35)
[2017-02-10] MEDS: Zolpidem 5mg tab ORAL PRN (21:47)
[2017-02-10] MEDS ORDERED: Haloperidol 5mg/ml Inj IM PRN (22:15)
[2017-02-11] VITALS: BP 99/70
[2017-02-11 04:00] VITALS: BP 131/65
[2017-02-11] MEDS: HydrALAZINE 10mg Tab ORAL SCH ×3 (05:55→22:22)
[2017-02-11 07:53] VITALS: BP 147/57
--- NOTE | 2017-02-11 08:05 | Pulmonology Progress Note ---
Assessment/Plan Assessment/Plan ASSESSMENT acute hypoxemic respiratory failure, requiring BiPAP-resolved large R pleural effusion possible asymmetrical pulmonary edema CM- EF 40% HTN ESRD, on HD amputated LUE and LLE macrocytic anemia thrombocytopenia DM episode of hypoglycemia elevated TSH, r/o hypothyroidism PLAN OF CARE MS floor O2 HHN prn fup CXR with persistent bilateral congestive changes with probable shifting of right pleural effusion, otherwise unchanged Persistent focal alveolar opacity right upper lobe--alveolar pulmonary edema versus superimposed pneumonia, stable HD done with removal of 2.2 L, respiratory status improved after HD , able to be weaned to NC fup with CXR unable to do tap due to thrombocytopenia clinically improving last ECHO with EF 40% in November cardio eval requested BP management with CCB, Hydralazine and ARB BS management was off insulin due to episode of hypoglycemia [id number] BS stable , now will restart sensitive scale of insulin elevated TSH noted, more elevated compared with November admission T3 T4 not done yet(labs pending) will start low dose of Synthroid monitor HH, transfuse prn goal to keep Hgb above 7 GI prophylaxis Bowel regimen monitor PLT count heme eval case discussed and evaluated by supervising physician Subjective Allergies: Coded Allergies: No Known Allergies (Verified , 04/11/08) Subjective afebrile, no leucocytosis on 4 L O2 via NC pulse oximetry stable no signs of respiratory distress Objective Last 24 Hour Vital Signs Date Time Temp Pulse Resp B/P Pulse Ox O2 Delivery O2 Flow Rate FiO2 02/11/17 07:53 97.5 88 22 147/57 97 Nasal Cannula 4.0 02/11/17 05:55 131/65 02/11/17 04:00 97.7 79 24 131/65 97 Nasal Cannula 2.0 02/11/17 04:00 97.7 79 24 131/65 97 Nasal Cannula 4.0 02/11/17 00:00 97.9 82 24 99/70 94 Nasal Cannula 4.0 02/10/17 21:47 124/68 02/10/17 21:05 67 18 Nasal Cannula 4.0 36 02/10/17 21:05 97 Nasal Cannula 4.0 36 02/10/17 21:05 Nasal Cannula 4.0 36 02/10/17 19:34 Nasal Cannula 10.0 02/10/17 19:32 97.4 100 22 124/68 97 Nasal Cannula 10.0 02/10/17 16:00 97.7 82 24 150/77 99 Venturi Mask 10.0 02/10/17 16:00 Venturi Mask 10.0 02/10/17 13:23 146/88 02/10/17 12:00 97.2 82 20 146/88 97 Nasal Cannula 4.0 02/10/17 09:21 145/84 02/10/17 09:21 70 145/84 02/10/17 09:10 98 Nasal Cannula 4.0 02/10/17 09:10 Nasal Cannula 4.0 02/10/17 09:09 70 22 Nasal Cannula 4.0 Intake and Output 02/10/17 02/11/17 19:00 07:00 Intake Total 640 ml Output Total 2000 ml Balance 640 ml -2000 ml Intake Oral 640 ml Output Hemodialysis UF 2000 ml # Voids 2 2 # Bowel Movements 1 General Appearance: no acute distress, other - chronically ill looking bedridden female in NAD HEENT: normocephalic, atraumatic, anicteric, mucous membranes moist Respiratory/Chest: lungs clear - with mdoerate air exchange , no respiratory distress, no accessory muscle use Cardiovascular: normal rate, regular rhythm Abdomen: normal bowel sounds, soft, non tender, non distended Extremities: other Neurologic/Psychiatric: abnormal gait - bedridden , alert, responsive Laboratory Tests 02/10/17 16:28: White Blood Count 7.1, Red Blood Count 2.86L, Hemoglobin 10.1L, Hematocrit 31.4L , Mean Corpuscular Volume 110H, Mean Corpuscular Hemoglobin 35.4H, Mean Corpuscular Hemoglobin Concent 32.3, Red Cell Distribution Width 16.2H, Platelet Count 43L, Mean Platelet Volume 11.5H, Neutrophils (%) (Auto) 79.0H, Lymphocytes (%) (Auto) 10.5L, Monocytes (%) (Auto) 8.0, Eosinophils (%) (Auto) 0.7, Basophils (%) (Auto) 1.7, Sodium Level 136, Potassium Level 3.8, Chloride Level 91L, Carbon Dioxide Level 26, Anion Gap 19H, Blood Urea Nitrogen 59H, Creatinine 6.6H, Estimat Glomerular Filtration Rate 6.3, Glucose Level 231H, Uric Acid 7.8H, Calcium Level 8.2L, Phosphorus Level 6.4H, Magnesium Level 2.6H , Total Bilirubin 0.4, Aspartate Amino Transf (AST/SGOT) 20, Alanine Aminotransferase (ALT/SGPT) 11, Alkaline Phosphatase 64, C-Reactive Protein, Quantitative 3.1H, Pro-B-Type Natriuretic Peptide > 52214X, Total Protein 6.7, Albumin 4.4, Globulin 2.3, Albumin/Globulin Ratio 1.9 Current Medications Medications (Trade) Dose Ordered Sig/Jagdish Route PRN Reason Start Time Stop Time Status Last Admin Dose Admin Acetaminophen (Tylenol) 650 mg Q4H PRN ORAL T>100.5 02/10/17 01:30 03/12/17 01:29 Albuterol/ Ipratropium (DuoNeb 0.5-3(2.5)mg/3ml) 3 ml Q6H PRN HHN dyspnea 02/09/17 23:19 02/14/17 23:18 Amlodipine Besylate (Norvasc) 2.5 mg DAILY ORAL 02/10/17 09:00 03/12/17 08:59 02/10/17 09:21 Chlorhexidine Gluconate (Rosaura-Hex 2%) 1 applic DAILY TOPIC 02/10/17 09:00 03/12/17 08:59 Dextrose (Dextrose 50%) STAT PRN IV Hypoglycemia 02/09/17 23:19 03/11/17 23:18 Haloperidol Lactate (Haldol) 2 mg Q4H PRN IM Agitation 02/10/17 22:15 03/12/17 22:14 Hydralazine HCl (Apresoline) 10 mg Q8HR ORAL 02/10/17 06:00 03/12/17 05:59 02/11/17 05:55 Losartan Potassium (Cozaar) 25 mg DAILY ORAL 02/10/17 09:00 03/12/17 08:59 02/10/17 09:21 Morphine Sulfate (Morphine Sulfate) 1 mg Q4H PRN SUBQ PAIN 4-10 02/10/17 00:00 02/17/17 00:00 02/10/17 20:35 Ondansetron HCl (Zofran) 4 mg Q6H PRN IVP Nausea & Vomiting 02/09/17 23:20 03/11/17 23:19 Polyethylene Glycol (Miralax) 17 gm HSPRN PRN ORAL Constipation 02/09/17 23:20 03/11/17 23:19 Zolpidem Tartrate (Ambien) 5 mg HSPRN PRN ORAL Insomnia 02/09/17 23:20 03/11/17 23:19 02/10/17 21:47 [facility]Pamela NP Feb 11, 2017 08:05
[2017-02-11] MEDS: Dyna-Hex 2% Top Sol 8oz TOPIC SCH ×2 (09:00→21:00)
[2017-02-11] MEDS: Losartan 25mg tab ORAL SCH (09:00)
--- NOTE | 2017-02-11 09:27 | General Progress Note ---
Assessment/Plan Status: stable Assessment/Plan Primary Impression: Fluid overload, in ESRD patinet with High K Additional Impression: Acute exacerbation of CHF (congestive heart failure) h/o DM HTN Encephalopathy Plan: HD today 02/12 discussed with RN Adjust BP meds- Stop mindaltering meds- per orders Subjective ROS Limited/Unobtainable: No Constitutional: Reports: malaise Allergies: Coded Allergies: No Known Allergies (Verified , 04/11/08) Objective Last 24 Hour Vital Signs Date Time Temp Pulse Resp B/P Pulse Ox O2 Delivery O2 Flow Rate FiO2 02/11/17 09:00 147/57 02/11/17 09:00 88 147/57 02/11/17 08:22 Nasal Cannula 4.0 02/11/17 08:20 92 Nasal Cannula 4.0 36 02/11/17 08:19 86 20 Nasal Cannula 4.0 02/11/17 07:53 97.5 88 22 147/57 97 Nasal Cannula 4.0 02/11/17 05:55 131/65 02/11/17 04:00 97.7 79 24 131/65 97 Nasal Cannula 2.0 02/11/17 04:00 97.7 79 24 131/65 97 Nasal Cannula 4.0 02/11/17 00:00 97.9 82 24 99/70 94 Nasal Cannula 4.0 02/10/17 21:47 124/68 02/10/17 21:05 67 18 Nasal Cannula 4.0 36 02/10/17 21:05 97 Nasal Cannula 4.0 36 02/10/17 21:05 Nasal Cannula 4.0 36 02/10/17 19:34 Nasal Cannula 10.0 02/10/17 19:32 97.4 100 22 124/68 97 Nasal Cannula 10.0 02/10/17 16:00 97.7 82 24 150/77 99 Venturi Mask 10.0 02/10/17 16:00 Venturi Mask 10.0 02/10/17 13:23 146/88 02/10/17 12:00 97.2 82 20 146/88 97 Nasal Cannula 4.0 Intake and Output 02/10/17 02/11/17 19:00 07:00 Intake Total 640 ml Output Total 2000 ml Balance 640 ml -2000 ml Intake Oral 640 ml Output Hemodialysis UF 2000 ml # Voids 2 2 # Bowel Movements 1 Laboratory Tests 02/10/17 16:28: White Blood Count 7.1, Red Blood Count 2.86L, Hemoglobin 10.1L, Hematocrit 31.4L , Mean Corpuscular Volume 110H, Mean Corpuscular Hemoglobin 35.4H, Mean Corpuscular Hemoglobin Concent 32.3, Red Cell Distribution Width 16.2H, Platelet Count 43L, Mean Platelet Volume 11.5H, Neutrophils (%) (Auto) 79.0H, Lymphocytes (%) (Auto) 10.5L, Monocytes (%) (Auto) 8.0, Eosinophils (%) (Auto) 0.7, Basophils (%) (Auto) 1.7, Sodium Level 136, Potassium Level 3.8, Chloride Level 91L, Carbon Dioxide Level 26, Anion Gap 19H, Blood Urea Nitrogen 59H, Creatinine 6.6H, Estimat Glomerular Filtration Rate 6.3, Glucose Level 231H, Uric Acid 7.8H, Calcium Level 8.2L, Phosphorus Level 6.4H, Magnesium Level 2.6H , Total Bilirubin 0.4, Aspartate Amino Transf (AST/SGOT) 20, Alanine Aminotransferase (ALT/SGPT) 11, Alkaline Phosphatase 64, C-Reactive Protein, Quantitative 3.1H, Pro-B-Type Natriuretic Peptide > 28049B, Total Protein 6.7, Albumin 4.4, Globulin 2.3, Albumin/Globulin Ratio 1.9 Height (Feet): 4 Height (Inches): 11.00 Weight (Pounds): 127 General Appearance: no apparent distress Objective other PE not changed DANIEL MARIEE Feb 11, 2017 09:27
[2017-02-11 12:01] VITALS: BP 125/77
[2017-02-11] MEDS ORDERED: Heparin 2000 units/Ns 1000ml IV ONE (16:00)
[2017-02-11] MEDS ORDERED: Lidocaine 1% Plain 30 ml INJ ONE (16:00)
[2017-02-11 16:17] VITALS: BP 102/57
[2017-02-11] MEDS: NovoLOG Insulin Flexpen SUBQ SCH ×2 (17:27→21:00)
[2017-02-11 20:00] VITALS: BP 133/75
[2017-02-11] MEDS: Zolpidem 5mg tab ORAL PRN (22:23)
[2017-02-12 00:46] VITALS: BP 141/77
[2017-02-12 04:00] VITALS: BP 118/58
[2017-02-12] MEDS: HydrALAZINE 10mg Tab ORAL SCH ×3 (06:00→21:02)
[2017-02-12] MEDS: Levothyroxine 25mcg tab ORAL SCH (06:21)
[2017-02-12] MEDS: NovoLOG Insulin Flexpen SUBQ SCH ×4 (06:24→21:07)
[2017-02-12 07:46] VITALS: BP 128/77
--- NOTE | 2017-02-12 08:15 | Consultation ---
DATE OF CONSULTATION: 02/11/2017 NOTE: POOR VOICE QUALITY HEMATOLOGY/ONCOLOGY CONSULTATION CONSULTING PHYSICIAN: Davis Hagan M.D. REQUESTING PHYSICIAN: Antonella Ly M.D. REASON FOR CONSULTATION: Management of thrombocytopenia. IDENTIFICATION: Dear Dr. Ly, The patient is a pleasant 67-year-old female with a past medical history significant for CAD, diabetes mellitus, end-stage renal disease, amputation of left leg and arm, and long term resident, at this time presents because her oxygen saturation was too low pulse oximetry is 60%. The patient was brought in by transferred to the [facility]. Chest x-ray shows she had extensive pulmonary edema as well as effusion requiring a drainage with thoracentesis. Hemodialysis completed. Respiratory status did improve after thoracentesis. However, Hematology service was requested, given the patient required platelet transfusion. PAST MEDICAL HISTORY: Anemia of chronic disease, hypertension, decreased appetite, amputated left leg, amputated left arm, and end-stage renal disease. MEDICATIONS: Amlodipine, aspirin, folic acid, Epogen, Colace, albuterol, . ALLERGIES: No known drug allergies. REVIEW OF SYSTEMS: Constitutional: No fevers, chills, or night sweats. Skin: No rashes, lumps, or itching. HEENT: No headache, hearing or visual changes. Breasts: No lumps, pain, or discharge. Pulmonary: Some shortness of breath is noted. On BiPAP. Gastrointestinal: Denies nausea, vomiting, or diarrhea. Genitourinary: No dysuria, frequency, or urgency. Musculoskeletal: No joint swelling, muscle pain, or trauma. PHYSICAL EXAMINATION: GENERAL: The patient is in no distress. VITAL SIGNS: Temperature 98 degrees Fahrenheit, pulse 82, respiratory rate 12, blood pressure 176/73, and pulse oximetry 100% on BiPAP. PULMONARY: Decreased breath sounds. CARDIOVASCULAR: Regular rate. No S3 or S4. ABDOMEN: Soft, nontender, and nondistended. EXTREMITIES: Some edema left sided. Amputated left arm and left leg. LABORATORY AND DIAGNOSTIC DATA: WBC of 5.6, hemoglobin 11.6, hematocrit 34, and platelet count 52,000. Imaging, reviewed. INR 1.1 and PT of 11.8. Creatinine 6.6. BNP greater than 70,000. ASSESSMENT AND PLAN: 1. Thrombocytopenia. Thrombocytopenia is new onset, has been progressive over the last two months potentially secondary to either medication effect versus potential viral infection versus a blood disorder. MCV is elevated at 110, signifies could be potentially related to alcohol abuse versus medications versus myelodysplastic syndrome. We will evaluate further with lab tests including hepatitis, human immunodeficiency virus, and ultrasound of the abdomen. We will transfuse ____ prior to this ____. 2. Anemia, secondary to chronic disease. Continue to closely monitor. B12 and folate to be ruled out. 3. Elevated TSH. if needed. Consider Endocrinology consultation. 4. Anemia, secondary to end-stage renal disease. 5. Diabetes mellitus. 6. Possible asymmetrical pulmonary edema large pleural effusion requiring thoracentesis. 7. Hypertension. Blood pressure better controlled. 8. consultation. We will order labs today. Davis Hagan M.D. DR: SIMON JOB#: [id number] CC:
[2017-02-12] MEDS: Dyna-Hex 2% Top Sol 8oz TOPIC SCH ×2 (09:00→21:00)
[2017-02-12] MEDS: Losartan 25mg tab ORAL SCH (09:00)
--- NOTE | 2017-02-12 10:59 | General Progress Note ---
Assessment/Plan Status: stable Assessment/Plan Primary Impression: Fluid overload, in ESRD patinet with High K Additional Impression: Acute exacerbation of CHF (congestive heart failure) h/o DM HTN Encephalopathy Plan: HD today 02/12, getting started on HD now discussed with RN Adjust BP meds- Stop mindaltering meds- per orders Subjective ROS Limited/Unobtainable: No Constitutional: Reports: malaise Allergies: Coded Allergies: No Known Allergies (Verified , 04/11/08) Objective Last 24 Hour Vital Signs Date Time Temp Pulse Resp B/P Pulse Ox O2 Delivery O2 Flow Rate FiO2 02/12/17 09:00 75 128/77 02/12/17 09:00 128/77 02/12/17 08:10 Nasal Cannula 4.0 36 02/12/17 08:10 98 Nasal Cannula 4.0 36 02/12/17 08:09 78 18 Nasal Cannula 4.0 36 02/12/17 07:46 98.2 75 20 128/77 100 Nasal Cannula 4.0 02/12/17 06:00 118/58 02/12/17 04:00 97.0 22 118/58 98 Nasal Cannula 4.0 02/12/17 00:46 97.7 76 24 141/77 99 Nasal Cannula 4.0 02/11/17 22:22 133/75 02/11/17 20:03 95 Nasal Cannula 4.0 36 02/11/17 20:03 89 20 Nasal Cannula 4.0 36 02/11/17 20:03 Nasal Cannula 4.0 36 02/11/17 20:00 98.1 82 24 133/75 93 Nasal Cannula 4.0 02/11/17 17:27 80 102/57 02/11/17 16:17 97.9 80 20 102/57 99 Nasal Cannula 4.0 02/11/17 14:10 119/67 02/11/17 12:01 97.2 95 20 125/77 95 Nasal Cannula 4.0 Intake and Output 02/11/17 02/12/17 19:00 07:00 Intake Total 780 ml Balance 780 ml Intake Oral 780 ml # Voids 1 # Bowel Movements 1 Height (Feet): 4 Height (Inches): 11.00 Weight (Pounds): 125 General Appearance: no apparent distress Objective other PE not changed DANIEL MARIEE Feb 12, 2017 10:59
--- NOTE | 2017-02-12 11:00 | Pulmonology Progress Note ---
Assessment/Plan Assessment/Plan ASSESSMENT acute hypoxemic respiratory failure, requiring BiPAP-resolved large R pleural effusion possible asymmetrical pulmonary edema CM- EF 40% HTN ESRD, on HD amputated LUE and LLE macrocytic anemia thrombocytopenia DM episode of hypoglycemia elevated TSH, r/o hypothyroidism PLAN OF CARE MS floor O2 HHN prn fup CXR with persistent bilateral congestive changes with probable shifting of right pleural effusion, otherwise unchanged Persistent focal alveolar opacity right upper lobe--alveolar pulmonary edema versus superimposed pneumonia, stable HD today , respiratory status improved after intiial HD , able to be weaned to NC fup with CXR fup with labs unable to do tap due to thrombocytopenia clinically improving last ECHO with EF 40% in November cardio eval requested BP management with CCB, Hydralazine and ARB BS management was off insulin due to episode of hypoglycemia [id number] BS stable , now will restart sensitive scale of insulin elevated TSH noted, more elevated compared with November admission T3 T4 not done yet(labs pending) will start low dose of Synthroid monitor HH, transfuse prn goal to keep Hgb above 7 GI prophylaxis Bowel regimen monitor PLT count, may need transfusion heme eval appreciated family declined CL placement ( not a candidate for PICC: shunt and amputee) case discussed and evaluated by supervising physician Subjective Allergies: Coded Allergies: No Known Allergies (Verified , 04/11/08) Subjective afebrile, no leucocytosis on 4 L O2 via NC pulse oximetry stable no signs of respiratory distress labs pending for today HD in process Objective Last 24 Hour Vital Signs Date Time Temp Pulse Resp B/P Pulse Ox O2 Delivery O2 Flow Rate FiO2 02/12/17 09:00 75 128/77 02/12/17 09:00 128/77 02/12/17 08:10 Nasal Cannula 4.0 36 02/12/17 08:10 98 Nasal Cannula 4.0 36 02/12/17 08:09 78 18 Nasal Cannula 4.0 36 02/12/17 07:46 98.2 75 20 128/77 100 Nasal Cannula 4.0 02/12/17 06:00 118/58 02/12/17 04:00 97.0 22 118/58 98 Nasal Cannula 4.0 02/12/17 00:46 97.7 76 24 141/77 99 Nasal Cannula 4.0 02/11/17 22:22 133/75 02/11/17 20:03 95 Nasal Cannula 4.0 36 02/11/17 20:03 89 20 Nasal Cannula 4.0 36 02/11/17 20:03 Nasal Cannula 4.0 36 02/11/17 20:00 98.1 82 24 133/75 93 Nasal Cannula 4.0 02/11/17 17:27 80 102/57 02/11/17 16:17 97.9 80 20 102/57 99 Nasal Cannula 4.0 02/11/17 14:10 119/67 02/11/17 12:01 97.2 95 20 125/77 95 Nasal Cannula 4.0 Intake and Output 02/11/17 02/12/17 19:00 07:00 Intake Total 780 ml Balance 780 ml Intake Oral 780 ml # Voids 1 # Bowel Movements 1 Objective General Appearance: no acute distress, chronically ill looking bedridden female in NAD HEENT: normocephalic, atraumatic, anicteric, mucous membranes moist Respiratory/Chest: lungs clear - with moderate air exchange , no respiratory distress, no accessory muscle use Cardiovascular: normal rate, regular rhythm Abdomen: normal bowel sounds, soft, non tender, non distended Extremities: other Neurologic/Psychiatric: abnormal gait - bedridden , alert, responsive Current Medications Medications (Trade) Dose Ordered Sig/Jagdsih Route PRN Reason Start Time Stop Time Status Last Admin Dose Admin Acetaminophen (Tylenol) 650 mg Q4H PRN ORAL T>100.5 02/10/17 01:30 03/12/17 01:29 Albuterol/ Ipratropium (DuoNeb 0.5-3(2.5)mg/3ml) 3 ml Q6H PRN HHN dyspnea 02/09/17 23:19 02/14/17 23:18 Amlodipine Besylate (Norvasc) 2.5 mg BID ORAL 02/11/17 18:00 03/13/17 17:59 Chlorhexidine Gluconate (Rosaura-Hex 2%) 1 applic DAILY TOPIC 02/10/17 09:00 03/12/17 08:59 Chlorhexidine Gluconate (Rosaura-Hex 2%) 1 applic QHS TOPIC 02/11/17 21:00 03/13/17 20:59 Dextrose (Dextrose 50%) STAT PRN IV Hypoglycemia 02/09/17 23:19 03/11/17 23:18 Dextrose (Dextrose 50%) STAT PRN IV Hypoglycemia 02/11/17 15:15 03/13/17 15:14 Haloperidol Lactate (Haldol) 2 mg Q4H PRN IM Agitation 02/10/17 22:15 03/12/17 22:14 Hydralazine HCl (Apresoline) 10 mg Q8HR ORAL 02/10/17 06:00 03/12/17 05:59 02/11/17 22:22 Insulin Aspart (NovoLOG) BEFORE MEALS AND HS SUBQ 02/11/17 16:30 03/13/17 16:29 02/12/17 06:24 Levothyroxine Sodium (Synthroid) 25 mcg ACBREAKFAST ORAL 02/12/17 06:30 03/14/17 06:29 02/12/17 06:21 Losartan Potassium (Cozaar) 25 mg DAILY ORAL 02/10/17 09:00 03/12/17 08:59 02/11/17 09:00 Morphine Sulfate (Morphine Sulfate) 1 mg Q4H PRN SUBQ PAIN 4-10 02/10/17 00:00 02/17/17 00:00 02/10/17 20:35 Ondansetron HCl (Zofran) 4 mg Q6H PRN IVP Nausea & Vomiting 02/09/17 23:20 03/11/17 23:19 Polyethylene Glycol (Miralax) 17 gm HSPRN PRN ORAL Constipation 02/09/17 23:20 03/11/17 23:19 Zolpidem Tartrate (Ambien) 5 mg HSPRN PRN ORAL Insomnia 02/09/17 23:20 03/11/17 23:19 02/11/17 22:23 Pamela Pringle NP (Vanchtein) Feb 12, 2017 11:00
--- NOTE | 2017-02-12 11:27 | Cardiology Progress Note ---
Assessment/Plan Assessment/Plan [id number] ekg echo if ef lwo will increase acie or arbs and decread ccb and consider bb Objective Last 24 Hour Vital Signs Date Time Temp Pulse Resp B/P Pulse Ox O2 Delivery O2 Flow Rate FiO2 02/12/17 09:00 75 128/77 02/12/17 09:00 128/77 02/12/17 08:10 Nasal Cannula 4.0 36 02/12/17 08:10 98 Nasal Cannula 4.0 36 02/12/17 08:09 78 18 Nasal Cannula 4.0 36 02/12/17 07:46 98.2 75 20 128/77 100 Nasal Cannula 4.0 02/12/17 06:00 118/58 02/12/17 04:00 97.0 22 118/58 98 Nasal Cannula 4.0 02/12/17 00:46 97.7 76 24 141/77 99 Nasal Cannula 4.0 02/11/17 22:22 133/75 02/11/17 20:03 95 Nasal Cannula 4.0 36 02/11/17 20:03 89 20 Nasal Cannula 4.0 36 02/11/17 20:03 Nasal Cannula 4.0 36 02/11/17 20:00 98.1 82 24 133/75 93 Nasal Cannula 4.0 02/11/17 17:27 80 102/57 02/11/17 16:17 97.9 80 20 102/57 99 Nasal Cannula 4.0 02/11/17 14:10 119/67 02/11/17 12:01 97.2 95 20 125/77 95 Nasal Cannula 4.0 Intake and Output 02/11/17 02/12/17 19:00 07:00 Intake Total 780 ml Balance 780 ml Intake Oral 780 ml # Voids 1 # Bowel Movements 1 Laboratory Tests Test 02/12/17 10:10 White Blood Count Pending Red Blood Count Pending Hemoglobin Pending Hematocrit Pending Mean Corpuscular Volume Pending Mean Corpuscular Hemoglobin Pending Mean Corpuscular Hemoglobin Concent Pending Red Cell Distribution Width Pending Platelet Count Pending Mean Platelet Volume Pending Neutrophils (%) (Auto) Pending Lymphocytes (%) (Auto) Pending Monocytes (%) (Auto) Pending Eosinophils (%) (Auto) Pending Basophils (%) (Auto) Pending Sodium Level Pending Potassium Level Pending Chloride Level Pending Carbon Dioxide Level Pending Blood Urea Nitrogen Pending Creatinine Pending Estimat Glomerular Filtration Rate Pending Glucose Level Pending Calcium Level Pending ZAINA CHEN Feb 12, 2017 11:27
[2017-02-12 11:35] LABS: CALCIUM 7.9 mg/dL (8.6-10.2); CREATININE 5.8 mg/dL (0.5-0.9); GLOMERULAR FILTRATION RATE 7.3 mL/min (>60); POTASSIUM 3.5 mEQ/L (3.4-4.9)
[2017-02-12 11:49] VITALS: BP 136/44
[2017-02-12] MEDS: Morphine Sulfate 2mg/ml Inj SUBQ PRN ×2 (14:43→22:23)
[2017-02-12 15:11] LABS: MEAN CORPUSCULAR HEMOGLOBIN 33.4 PG (27.0-31.0); MEAN CORPUSCULAR HGB CONC 31.6 G/DL (32.0-36.0); MEAN CORPUSCULAR VOLUME 106 FL (80-99); MEAN PLATELET VOLUME 9.3 FL (6.5-10.1); PLATELET COUNT 57 K/UL (150-450); RED BLOOD COUNT 2.81 M/UL (4.20-5.40); RED CELL DISTRIBUTION WIDTH 15.6 % (11.6-14.8); WHITE BLOOD COUNT 4.3 K/UL (4.8-10.8)
[2017-02-12 15:56] VITALS: BP 100/62
[2017-02-12 16:43] LABS: BAND NEUTROPHILS % (MANUAL) 2 % (0-8); BASOPHILS % (MANUAL) 0 % (0-2); EOSINOPHILS % (MANUAL) 3 % (0-3); LYMPHOCYTES % (MANUAL) 10 % (20-45); MACROCYTES 1+; NEUTROPHILS % (MANUAL) 78 % (45-75); PLATELET ESTIMATE DECREASED; PLATELET MORPHOLOGY NORMAL; TOTAL CELLS COUNTED 100
--- NOTE | 2017-02-12 17:30 | Consultation ---
DATE OF CONSULTATION: 02/12/2017 CARDIOLOGY CONSULTATION REFERRING PHYSICIAN: Antonella Ly M.D. REASON FOR REFERRAL: Congestive heart failure. HISTORY OF PRESENT ILLNESS: This is a 67-year-old female from some kind of a residential facility where she has been living for approximately eight years. She has been on hemodialysis for approximately two years, has been recently refusing dialysis intermittently, was admitted to the hospital here at [facility] because of increasing shortness of breath. The tank truck milk receiver run sheet indicates that the patient has had shortness of breath since 4 o'clock in the afternoon. She has saturations down to the 70s and was put on oxygen. She was still alert and oriented. She has been treated with respiratory failure protocol, was transferred to the emergency room here at [facility], has been here for a few days, and subsequently this consultation is requested because of congestive heart failure. She is very confused unfortunately and not able to provide meaningful information. This information is obtained from reviewing the patient's chart as well as my discussion with the patient's daughter who provided meaningful information. She has had some kind of a procedure, possibly on her heart at approximately two years ago. The daughter is not sure what she had heart attack. The patient has had amputation of her left upper extremity and left lower extremity related to some type of wound infection according to her daughter. PAST MEDICAL HISTORY: Positive for high blood pressure and diabetes mellitus. No cancer. No stroke. No hepatitis. No tuberculosis. No asthma. No stomach ulcers. She does have kidney problems and she had anemia before. ALLERGIES: There is no allergy to medications according to daughter. SOCIAL HISTORY: She used to smoke some 30 years ago, does not anymore. No drug use or alcohol. REVIEW OF SYSTEMS: Unable to obtain. PHYSICAL EXAMINATION: GENERAL: Shows to be an elderly, in no respiratory distress, confused, on hemodialysis. VITAL SIGNS: Blood pressure is 128/77, with heart rate of 75, and temperature 98.2. NECK: Supple. No jugular venous distention. There are some crackles noted at the left base. CARDIAC: Regular rate and rhythm. No heaves or thrills noted. ABDOMEN: Soft and obese. Positive bowel sounds. EXTREMITIES: Amputation on the upper extremity and lower extremity noted. NEUROLOGIC: She is confused, arousable, and responsive. According to her daughter, a few days ago, she did not recognize her daughter, but she does recognize her today apparently. LABORATORY AND DIAGNOSTIC DATA: Laboratory values, she has got a white count of 7.1, hemoglobin 10.1, and platelet count of 443,000. Sodium is 138, potassium 3.8, chloride 91, bicarbonate 26, BUN 59, creatinine 0.6, and glucose of 231. She did have blood sugar of at one point, I am not sure if that is correct, but magnesium was 2.6, and phosphorus was 6.4. Uric acid is 7.8. Troponin on one occasion was negative. ProBNP was greater than 70,000. TSH was 10.7. Coags, INR of 1.1 and PTT of 26. IMAGING`: Chest x-ray shows congestive changes, probable shifting of right pleural effusion, otherwise unchanged. Alveolar opacity right upper lobe and large right-sided pleural effusion on previous EKG was noted. There is reportedly ejection fraction of 70% although I am unable to find an EKG. ASSESSMENT: 1. Questionable congestive heart failure versus fluid overload secondary to missed dialysis. 2. Left ventricular systolic dysfunction, reportedly 40%. 3. Hypertension. 4. Diabetes mellitus. 5. Questionable coronary disease. 6. End-stage renal disease, on hemodialysis. 7. Thrombocytopenia. PLAN: Dr. Ly, this patient was seen in cardiac consultation. An EKG will be ordered. The patient seems to be getting ultrafiltration and dialysis on a regular basis, which seem to be helping her. Blood pressure appears to be relatively well controlled. She has a significant amount of thrombocytopenia, which is being worked up by tortilla maker. Her TSH is moderately elevated, not clear if this is euthyroid sick or not, and her blood pressures most recently have been well controlled. Dr. Ly, thank you for allowing me to participate in the care of this patient. If the patient does have truly left ventricular systolic dysfunction, MARCELINA inhibitors may be ordered for blood pressure control and amlodipine that she is getting at the present time, or may need to increase the ARB doses. Chandra Babin M.D. : ANA/JAQUAN JOB#: [id number] CC:
[2017-02-12 20:00] VITALS: BP 161/85
[2017-02-12] MEDS: Zolpidem 5mg tab ORAL PRN (22:21)
[2017-02-13] VITALS: BP 153/71
[2017-02-13 04:00] VITALS: BP 141/80
[2017-02-13] MEDS: Levothyroxine 25mcg tab ORAL SCH (06:09)
[2017-02-13] MEDS: HydrALAZINE 10mg Tab ORAL SCH ×3 (06:10→22:16)
[2017-02-13] MEDS: NovoLOG Insulin Flexpen SUBQ SCH ×4 (06:12→20:37)
[2017-02-13 07:51] LABS: MEAN CORPUSCULAR HEMOGLOBIN 34.3 PG (27.0-31.0); MEAN CORPUSCULAR HGB CONC 31.6 G/DL (32.0-36.0); MEAN CORPUSCULAR VOLUME 109 FL (80-99); MEAN PLATELET VOLUME 9.6 FL (6.5-10.1); PLATELET COUNT 64 K/UL (150-450); RED BLOOD COUNT 2.73 M/UL (4.20-5.40); RED CELL DISTRIBUTION WIDTH 15.8 % (11.6-14.8); WHITE BLOOD COUNT 4.6 K/UL (4.8-10.8)
[2017-02-13 08:00] VITALS: BP 138/84
[2017-02-13 08:22] LABS: CALCIUM 8.1 mg/dL (8.6-10.2); CREATININE 4.3 mg/dL (0.5-0.9); GLOMERULAR FILTRATION RATE 10.3 mL/min (>60); POTASSIUM 3.8 mEQ/L (3.4-4.9)
[2017-02-13 08:42] LABS: BASOPHILS % (MANUAL) 1 % (0-2); EOSINOPHILS % (MANUAL) 1 % (0-3); LYMPHOCYTES % (MANUAL) 18 % (20-45); NEUTROPHILS % (MANUAL) 70 % (45-75); TOTAL CELLS COUNTED 100
[2017-02-13 08:43] LABS: ANISOCYTOSIS 1+; BAND NEUTROPHILS % (MANUAL) 0 % (0-8); HYPOCHROMASIA 1+; OVALOCYTES 1+; PLATELET ESTIMATE DECREASED; PLATELET MORPHOLOGY NORMAL; SCHISTOCYTES 1+; TEAR DROP CELLS 1+
[2017-02-13] MEDS: Dyna-Hex 2% Top Sol 8oz TOPIC SCH ×2 (09:00→21:00)
--- NOTE | 2017-02-13 09:21 | General Progress Note ---
Assessment/Plan Status: stable Assessment/Plan Primary Impression: Fluid overload, in ESRD patinet with High K Additional Impression: Acute exacerbation of CHF (congestive heart failure) h/o DM HTN Encephalopathy Plan: HD in am discussed with RN Adjust BP meds- Stop mind altering meds- per orders Subjective ROS Limited/Unobtainable: No Constitutional: Reports: malaise Allergies: Coded Allergies: No Known Allergies (Verified , 04/11/08) Objective Last 24 Hour Vital Signs Date Time Temp Pulse Resp B/P Pulse Ox O2 Delivery O2 Flow Rate FiO2 02/13/17 06:10 141/80 02/13/17 04:00 97.7 80 20 141/80 100 Nasal Cannula 2.0 02/13/17 00:00 97.9 93 20 153/71 100 Nasal Cannula 2.0 02/12/17 21:02 159/67 02/12/17 20:06 99 Nasal Cannula 4.0 36 02/12/17 20:06 Nasal Cannula 4.0 36 02/12/17 20:05 100 18 Nasal Cannula 4.0 36 02/12/17 20:00 99.0 92 21 161/85 99 Nasal Cannula 2.0 02/12/17 17:28 96 111/73 02/12/17 15:56 98.6 78 20 100/62 97 Nasal Cannula 2.0 02/12/17 14:00 100/62 02/12/17 13:00 Nasal Cannula 2.0 02/12/17 11:49 97.5 78 20 136/44 99 Nasal Cannula 4.0 02/12/17 09:55 Nasal Cannula 2.0 Intake and Output 02/12/17 02/13/17 19:00 07:00 Intake Total 480 ml Output Total 2238 ml 120 ml Balance -1758 ml -120 ml Intake Oral 480 ml Output Urine Total 0 ml 120 ml Hemodialysis UF 2238 ml # Bowel Movements 1 Laboratory Tests 02/12/17 10:10: Sodium Level 134L, Potassium Level 3.5, Chloride Level 93L, Carbon Dioxide Level 23, Anion Gap 18H, Blood Urea Nitrogen 65H, Creatinine 5.8H, Estimat Glomerular Filtration Rate 7.3, Glucose Level 110H, Calcium Level 7.9L 02/12/17 14:53: White Blood Count 4.3L, Red Blood Count 2.81L, Hemoglobin 9.4L, Hematocrit 29.7L , Mean Corpuscular Volume 106H, Mean Corpuscular Hemoglobin 33.4H, Mean Corpuscular Hemoglobin Concent 31.6L, Red Cell Distribution Width 15.6H, Platelet Count 57L, Mean Platelet Volume 9.3, Neutrophils (%) (Auto) , Lymphocytes (%) (Auto) , Monocytes (%) (Auto) , Eosinophils (%) (Auto) , Basophils (%) (Auto) , Differential Total Cells Counted 100, Neutrophils % ( Manual) 78H, Lymphocytes % (Manual) 10L, Monocytes % (Manual) 7, Eosinophils % ( Manual) 3, Basophils % (Manual) 0, Band Neutrophils 2, Platelet Estimate DecreasedL, Platelet Morphology Normal, Macrocytosis 1+ 02/13/17 00:03: Stool Occult Blood [Pending] 02/13/17 06:35: Sodium Level 138, Potassium Level 3.8, Chloride Level 95L, Carbon Dioxide Level 24, Anion Gap 19H, Blood Urea Nitrogen 45H, Creatinine 4.3H, Estimat Glomerular Filtration Rate 10.3, Glucose Level 129H, Calcium Level 8.1L, White Blood Count 4.6L, Red Blood Count 2.73L, Hemoglobin 9.4L, Hematocrit 29.7L, Mean Corpuscular Volume 109H, Mean Corpuscular Hemoglobin 34.3H, Mean Corpuscular Hemoglobin Concent 31.6L, Red Cell Distribution Width 15.8H, Platelet Count 64L , Mean Platelet Volume 9.6, Neutrophils (%) (Auto) , Lymphocytes (%) (Auto) , Monocytes (%) (Auto) , Eosinophils (%) (Auto) , Basophils (%) (Auto) , Differential Total Cells Counted 100, Neutrophils % (Manual) 70, Lymphocytes % ( Manual) 18L, Monocytes % (Manual) 10, Eosinophils % (Manual) 1, Basophils % ( Manual) 1, Band Neutrophils 0, Platelet Estimate DecreasedL, Platelet Morphology Normal, Hypochromasia 1+, Anisocytosis 1+, Tear Drop Cells 1+, Ovalocytes 1+, Schistocytes 1+ Height (Feet): 4 Height (Inches): 11.00 Weight (Pounds): 112 General Appearance: no apparent distress Objective other PE not changed DANIEL MARIEE Feb 13, 2017 09:21
--- NOTE | 2017-02-13 09:47 | Cardiology Progress Note ---
Assessment/Plan Assessment/Plan 1. Questionable congestive heart failure versus fluid overload secondary to missed dialysis. 2. Left ventricular systolic dysfunction, reportedly 40%. 3. Hypertension. 4. Diabetes mellitus. 5. Questionable coronary disease. 6. End-stage renal disease, on hemodialysis. 7. Thrombocytopenia. abd u/s sh0wed right sided effusion awiat dialyssi need more uf confused await echo to adjsut bp meds once availbe Subjective ROS Limited/Unobtainable: Yes Objective Last 24 Hour Vital Signs Date Time Temp Pulse Resp B/P Pulse Ox O2 Delivery O2 Flow Rate FiO2 02/13/17 06:10 141/80 02/13/17 04:00 97.7 80 20 141/80 100 Nasal Cannula 2.0 02/13/17 00:00 97.9 93 20 153/71 100 Nasal Cannula 2.0 02/12/17 21:02 159/67 02/12/17 20:06 99 Nasal Cannula 4.0 36 02/12/17 20:06 Nasal Cannula 4.0 36 02/12/17 20:05 100 18 Nasal Cannula 4.0 36 02/12/17 20:00 99.0 92 21 161/85 99 Nasal Cannula 2.0 02/12/17 17:28 96 111/73 02/12/17 15:56 98.6 78 20 100/62 97 Nasal Cannula 2.0 02/12/17 14:00 100/62 02/12/17 13:00 Nasal Cannula 2.0 02/12/17 11:49 97.5 78 20 136/44 99 Nasal Cannula 4.0 02/12/17 09:55 Nasal Cannula 2.0 General Appearance: lethargic, other - sweaty Neck: supple Cardiovascular: normal rate, regular rhythm Respiratory/Chest: lungs clear, normal breath sounds Abdomen: non tender, soft Extremities: no swelling Intake and Output 02/12/17 02/13/17 19:00 07:00 Intake Total 480 ml Output Total 2238 ml 120 ml Balance -1758 ml -120 ml Intake Oral 480 ml Output Urine Total 0 ml 120 ml Hemodialysis UF 2238 ml # Bowel Movements 1 Laboratory Tests Test 02/12/17 10:10 02/12/17 14:53 02/13/17 00:03 02/13/17 06:35 Sodium Level 134 mEQ/L (135-145) L 138 mEQ/L (135-145) Potassium Level 3.5 mEQ/L (3.4-4.9) 3.8 mEQ/L (3.4-4.9) Chloride Level 93 mEQ/L (98-107) L 95 mEQ/L (98-107) L Carbon Dioxide Level 23 mEQ/L (20-30) 24 mEQ/L (20-30) Anion Gap 18 (5-15) H 19 (5-15) H Blood Urea Nitrogen 65 mg/dL (7-23) H 45 mg/dL (7-23) H Creatinine 5.8 mg/dL (0.5-0.9) H 4.3 mg/dL (0.5-0.9) H Estimat Glomerular Filtration Rate 7.3 mL/min (>60) 10.3 mL/min (>60) Glucose Level 110 mg/dL (74-106) H 129 mg/dL (74-106) H Calcium Level 7.9 mg/dL (8.6-10.2) L 8.1 mg/dL (8.6-10.2) L White Blood Count 4.3 K/UL (4.8-10.8) L 4.6 K/UL (4.8-10.8) L Red Blood Count 2.81 M/UL (4.20-5.40) L 2.73 M/UL (4.20-5.40) L Hemoglobin 9.4 G/DL (12.0-16.0) L 9.4 G/DL (12.0-16.0) L Hematocrit 29.7 % (37.0-47.0) L 29.7 % (37.0-47.0) L Mean Corpuscular Volume 106 FL (80-99) H 109 FL (80-99) H Mean Corpuscular Hemoglobin 33.4 PG (27.0-31.0) H 34.3 PG (27.0-31.0) H Mean Corpuscular Hemoglobin Concent 31.6 G/DL (32.0-36.0) L 31.6 G/DL (32.0-36.0) L Red Cell Distribution Width 15.6 % (11.6-14.8) H 15.8 % (11.6-14.8) H Platelet Count 57 K/UL (150-450) L 64 K/UL (150-450) L Mean Platelet Volume 9.3 FL (6.5-10.1) 9.6 FL (6.5-10.1) Neutrophils (%) (Auto) % (45.0-75.0) % (45.0-75.0) Lymphocytes (%) (Auto) % (20.0-45.0) % (20.0-45.0) Monocytes (%) (Auto) % (1.0-10.0) % (1.0-10.0) Eosinophils (%) (Auto) % (0.0-3.0) % (0.0-3.0) Basophils (%) (Auto) % (0.0-2.0) % (0.0-2.0) Differential Total Cells Counted 100 100 Neutrophils % (Manual) 78 % (45-75) H 70 % (45-75) Lymphocytes % (Manual) 10 % (20-45) L 18 % (20-45) L Monocytes % (Manual) 7 % (1-10) 10 % (1-10) Eosinophils % (Manual) 3 % (0-3) 1 % (0-3) Basophils % (Manual) 0 % (0-2) 1 % (0-2) Band Neutrophils 2 % (0-8) 0 % (0-8) Platelet Estimate Decreased L Decreased L Platelet Morphology Normal Normal Macrocytosis 1+ Stool Occult Blood Pending Hypochromasia 1+ Anisocytosis 1+ Tear Drop Cells 1+ Ovalocytes 1+ Schistocytes 1+ ZAINA CHEN Feb 13, 2017 09:47
[2017-02-13] MEDS: Losartan 25mg tab ORAL SCH (10:03)
--- NOTE | 2017-02-13 11:43 | Pulmonology Progress Note ---
Assessment/Plan Assessment/Plan ASSESSMENT acute hypoxemic respiratory failure, requiring BiPAP-resolved large R pleural effusion possible asymmetrical pulmonary edema CM- EF 40% HTN ESRD, on HD amputated LUE and LLE macrocytic anemia thrombocytopenia DM episode of hypoglycemia elevated TSH, r/o hypothyroidism PLAN OF CARE MS floor O2 HHN prn fup CXR with persistent bilateral congestive changes with probable shifting of right pleural effusion, otherwise unchanged Persistent focal alveolar opacity right upper lobe--alveolar pulmonary edema versus superimposed pneumonia, stable last HD 02/12 respiratory status improved after initial HD , able to be weaned to NC fup with CXR labs at baseline unable to do tap due to thrombocytopenia clinically improving last ECHO with EF 40% in November cardio eval requested BP management with CCB, Hydralazine and ARB BS management was off insulin due to episode of hypoglycemia [id number] BS stable , now will restart sensitive scale of insulin elevated TSH noted, more elevated compared with November admission started on low dose of Synthroid monitor HH, transfuse prn goal to keep Hgb above 7 GI prophylaxis Bowel regimen monitor PLT count, at baseline heme eval appreciated family declined CL placement ( not a candidate for PICC: shunt and amputee) dc plan for am case discussed and evaluated by supervising physician Subjective Allergies: Coded Allergies: No Known Allergies (Verified , 04/11/08) Subjective afebrile, no leucocytosis on 4 L O2 via NC pulse oximetry stable no signs of respiratory distress Objective Last 24 Hour Vital Signs Date Time Temp Pulse Resp B/P Pulse Ox O2 Delivery O2 Flow Rate FiO2 02/13/17 10:03 80 146/77 02/13/17 10:03 146/77 02/13/17 09:58 Nasal Cannula 4.0 02/13/17 09:57 98 Nasal Cannula 4.0 02/13/17 09:56 76 16 Nasal Cannula 4.0 02/13/17 08:00 97.6 92 20 138/84 98 Nasal Cannula 4.0 02/13/17 06:10 141/80 02/13/17 04:00 97.7 80 20 141/80 100 Nasal Cannula 2.0 02/13/17 00:00 97.9 93 20 153/71 100 Nasal Cannula 2.0 02/12/17 21:02 159/67 02/12/17 20:06 99 Nasal Cannula 4.0 36 02/12/17 20:06 Nasal Cannula 4.0 36 02/12/17 20:05 100 18 Nasal Cannula 4.0 36 02/12/17 20:00 99.0 92 21 161/85 99 Nasal Cannula 2.0 02/12/17 17:28 96 111/73 02/12/17 15:56 98.6 78 20 100/62 97 Nasal Cannula 2.0 02/12/17 14:00 100/62 02/12/17 13:00 Nasal Cannula 2.0 02/12/17 11:49 97.5 78 20 136/44 99 Nasal Cannula 4.0 Intake and Output 02/12/17 02/13/17 19:00 07:00 Intake Total 480 ml Output Total 2238 ml 120 ml Balance -1758 ml -120 ml Intake Oral 480 ml Output Urine Total 0 ml 120 ml Hemodialysis UF 2238 ml # Bowel Movements 1 Objective General Appearance: no acute distress, chronically ill looking bedridden female in NAD HEENT: normocephalic, atraumatic, anicteric, mucous membranes moist Respiratory/Chest: lungs clear - with moderate air exchange , no respiratory distress, no accessory muscle use Cardiovascular: normal rate, regular rhythm Abdomen: normal bowel sounds, soft, non tender, non distended Extremities: other Neurologic/Psychiatric: bedridden , alert, responsive Laboratory Tests 02/12/17 14:53: White Blood Count 4.3L, Red Blood Count 2.81L, Hemoglobin 9.4L, Hematocrit 29.7L , Mean Corpuscular Volume 106H, Mean Corpuscular Hemoglobin 33.4H, Mean Corpuscular Hemoglobin Concent 31.6L, Red Cell Distribution Width 15.6H, Platelet Count 57L, Mean Platelet Volume 9.3, Neutrophils (%) (Auto) , Lymphocytes (%) (Auto) , Monocytes (%) (Auto) , Eosinophils (%) (Auto) , Basophils (%) (Auto) , Differential Total Cells Counted 100, Neutrophils % ( Manual) 78H, Lymphocytes % (Manual) 10L, Monocytes % (Manual) 7, Eosinophils % ( Manual) 3, Basophils % (Manual) 0, Band Neutrophils 2, Platelet Estimate DecreasedL, Platelet Morphology Normal, Macrocytosis 1+ 02/13/17 00:03: Stool Occult Blood [Pending] 02/13/17 06:35: White Blood Count 4.6L, Red Blood Count 2.73L, Hemoglobin 9.4L, Hematocrit 29.7L , Mean Corpuscular Volume 109H, Mean Corpuscular Hemoglobin 34.3H, Mean Corpuscular Hemoglobin Concent 31.6L, Red Cell Distribution Width 15.8H, Platelet Count 64L, Mean Platelet Volume 9.6, Neutrophils (%) (Auto) , Lymphocytes (%) (Auto) , Monocytes (%) (Auto) , Eosinophils (%) (Auto) , Basophils (%) (Auto) , Differential Total Cells Counted 100, Neutrophils % ( Manual) 70, Lymphocytes % (Manual) 18L, Monocytes % (Manual) 10, Eosinophils % ( Manual) 1, Basophils % (Manual) 1, Band Neutrophils 0, Platelet Estimate DecreasedL, Platelet Morphology Normal, Hypochromasia 1+, Anisocytosis 1+, Tear Drop Cells 1+, Ovalocytes 1+, Schistocytes 1+, Sodium Level 138, Potassium Level 3.8, Chloride Level 95L, Carbon Dioxide Level 24, Anion Gap 19H, Blood Urea Nitrogen 45H, Creatinine 4.3H, Estimat Glomerular Filtration Rate 10.3, Glucose Level 129H, Calcium Level 8.1L Current Medications Medications (Trade) Dose Ordered Sig/Jagdish Route PRN Reason Start Time Stop Time Status Last Admin Dose Admin Acetaminophen (Tylenol) 650 mg Q4H PRN ORAL T>100.5 02/10/17 01:30 03/12/17 01:29 Albuterol/ Ipratropium (DuoNeb 0.5-3(2.5)mg/3ml) 3 ml Q6H PRN HHN dyspnea 02/09/17 23:19 02/14/17 23:18 Amlodipine Besylate (Norvasc) 2.5 mg BID ORAL 02/11/17 18:00 03/13/17 17:59 02/13/17 10:03 Chlorhexidine Gluconate (Rosaura-Hex 2%) 1 applic DAILY TOPIC 02/10/17 09:00 03/12/17 08:59 Chlorhexidine Gluconate (Rosaura-Hex 2%) 1 applic QHS TOPIC 02/11/17 21:00 03/13/17 20:59 Dextrose (Dextrose 50%) STAT PRN IV Hypoglycemia 02/09/17 23:19 03/11/17 23:18 Dextrose (Dextrose 50%) STAT PRN IV Hypoglycemia 02/11/17 15:15 03/13/17 15:14 Haloperidol Lactate (Haldol) 2 mg Q4H PRN IM Agitation 02/10/17 22:15 03/12/17 22:14 Hydralazine HCl (Apresoline) 10 mg Q8HR ORAL 02/10/17 06:00 03/12/17 05:59 02/13/17 06:10 Insulin Aspart (NovoLOG) BEFORE MEALS AND HS SUBQ 02/11/17 16:30 03/13/17 16:29 02/13/17 06:12 Levothyroxine Sodium (Synthroid) 25 mcg ACBREAKFAST ORAL 02/12/17 06:30 03/14/17 06:29 02/13/17 06:09 Losartan Potassium (Cozaar) 25 mg DAILY ORAL 02/10/17 09:00 03/12/17 08:59 02/13/17 10:03 Morphine Sulfate (Morphine Sulfate) 1 mg Q4H PRN SUBQ PAIN 4-10 02/10/17 00:00 02/17/17 00:00 02/12/17 22:23 Ondansetron HCl (Zofran) 4 mg Q6H PRN IVP Nausea & Vomiting 02/09/17 23:20 03/11/17 23:19 Polyethylene Glycol (Miralax) 17 gm HSPRN PRN ORAL Constipation 02/09/17 23:20 03/11/17 23:19 Zolpidem Tartrate (Ambien) 5 mg HSPRN PRN ORAL Insomnia 02/09/17 23:20 03/11/17 23:19 02/12/17 22:21 [facility] HospitalPam[facility] Hunter NP Feb 13, 2017 11:43
[2017-02-13 12:00] VITALS: BP 142/78
[2017-02-13 16:00] VITALS: BP 104/58
[2017-02-13] MEDS ORDERED: DuoNeb 0.5-3(2.5)mg/3ml neb HHN PRN (17:19)
[2017-02-13 20:00] VITALS: BP 158/74
[2017-02-13] MEDS: Morphine Sulfate 2mg/ml Inj SUBQ PRN (20:17)
[2017-02-14] VITALS (7 sets, daily range): BP systolic 115–157; BP diastolic 63–86
[2017-02-14] MEDS: Zolpidem 5mg tab ORAL PRN (01:47)
[2017-02-14] MEDS: Morphine Sulfate 2mg/ml Inj SUBQ PRN (01:49)
[2017-02-14] MEDS: NovoLOG Insulin Flexpen SUBQ SCH ×4 (06:24→22:03)
[2017-02-14] MEDS: Levothyroxine 25mcg tab ORAL SCH (06:25)
[2017-02-14] MEDS: HydrALAZINE 10mg Tab ORAL SCH ×3 (06:25→21:57)
[2017-02-14] MEDS: Losartan 25mg tab ORAL SCH (08:47)
[2017-02-14] MEDS: Dyna-Hex 2% Top Sol 8oz TOPIC SCH ×2 (08:48→21:00)
[2017-02-14] MEDS ORDERED: Heparin 2000 units/Ns 1000ml INJ PRN (09:30)
[2017-02-14] MEDS ORDERED: Lidocaine 1% Plain 30 ml INJ PRN (09:30)
--- NOTE | 2017-02-14 11:57 | Cardiology Report ---
APPROVED REPORT EXAM: Two-dimensional and M-mode echocardiogram with Doppler and color Doppler. INDICATION Congestive Heart Failure M-Mode DIMENSIONS IVSd0.8 (0.7-1.1cm)Left Atrium (MM)4.6 (1.6-4.0cm) LVDd5.4 (3.5-5.6cm)Aortic Root2.8 (2.0-3.7cm) PWd0.9 (0.7-1.1cm)Aortic Cusp Exc.1.7 (1.5-2.0cm) IVSs1.1 cm LVDs3.5 (2.5-4.0cm) PWs1.2 cm Normal left ventricular chamber size, systolic function and wall motion. Left ventricular ejection fraction estimated to be 55-60%. Mild left ventricular hypertrophy. No evidence of pericardial fat or effusion. Mild bi-atrial enlargement by 2D. Focal aortic valve sclerosis with adequate cusp excursion Thickened mitral valve leaflets with normal excursion. ,Mild mitral annulus and aortic root calcification. Pulmonic valve is well visualized. Normal tricuspid valve structure. IVC is normal in size with physiologic collapse. A color flow and spectral Doppler study was performed and revealed: No aortic regurgitation. No mitral regurgitation. Mitral inflow velocities indicates possible pseudo normalization pattern implying significant left ventricular diastolic dysfunction. Trace tricuspid regurgitation. Tricuspid systolic velocities suggests peak right ventricular systolic pressure of 35 mmHg Consistent with mild pulmonary hypertension. Pulmonic regurgitation present.
--- NOTE | 2017-02-14 13:49 | General Progress Note ---
Assessment/Plan Status: stable Assessment/Plan Primary Impression: Fluid overload, in ESRD patinet with High K Additional Impression: Acute exacerbation of CHF (congestive heart failure) h/o DM HTN Encephalopathy Plan: HD today discussed with RN Adjust BP meds- Stop mind altering meds- per orders ? DC Subjective ROS Limited/Unobtainable: No Constitutional: Reports: malaise Allergies: Coded Allergies: No Known Allergies (Verified , 04/11/08) Objective Last 24 Hour Vital Signs Date Time Temp Pulse Resp B/P Pulse Ox O2 Delivery O2 Flow Rate FiO2 02/14/17 12:00 97.3 82 20 157/86 99 Nasal Cannula 4.0 02/14/17 10:12 Nasal Cannula 4.0 02/14/17 10:11 95 Nasal Cannula 4.0 02/14/17 10:10 87 20 Nasal Cannula 4.0 02/14/17 08:47 87 115/63 02/14/17 08:47 115/63 02/14/17 08:00 97.3 87 20 115/63 95 Nasal Cannula 4.0 02/14/17 06:25 140/88 02/14/17 04:00 98.1 89 18 131/65 93 Nasal Cannula 4.0 02/14/17 02:19 97.9 02/14/17 00:16 97.9 85 18 138/78 98 Room Air 02/13/17 22:16 133/73 02/13/17 20:00 98.4 80 17 158/74 100 Nasal Cannula 4.0 02/13/17 19:15 72 16 Nasal Cannula 4.0 02/13/17 19:10 98 Nasal Cannula 4.0 36 02/13/17 19:10 Nasal Cannula 4.0 36 02/13/17 18:00 77 114/96 02/13/17 16:00 97.6 78 16 104/58 96 Nasal Cannula 4.0 02/13/17 14:00 100/57 Intake and Output 02/13/17 02/14/17 19:00 07:00 Intake Total 250 ml 480 ml Balance 250 ml 480 ml Intake Oral 250 ml 480 ml # Voids 3 1 Height (Feet): 4 Height (Inches): 11.00 Weight (Pounds): 133 General Appearance: no apparent distress Objective other PE not changed DANIEL MARIEE Feb 14, 2017 13:49
--- NOTE | 2017-02-14 13:50 | Diagnostic Imaging Report ---
Indication: Dyspnea Comparison: 02/10/17 A single view chest radiograph was obtained. Findings: Extensive alveolar airspace and interstitial opacities demonstrated bilaterally. Without significant change. There is a probable right pleural effusion. Lung volumes are low. Impression: Extensive lung disease. This is probably on the basis of pulmonary edema.
--- NOTE | 2017-02-14 15:23 | General Progress Note ---
Assessment/Plan Assessment/Plan 1. Thrombocytopenia. Thrombocytopenia is new onset, has been progressive over the last two months. Potentially secondary to either medication effect versus potential viral infection versus a blood disorder. MCV is elevated at 110, signifies could be potentially related to alcohol abuse versus medications versus myelodysplastic syndrome. --> hepatitis and hiv panel pending --> abd us pending 2. Anemia, secondary to chronic disease. Continue to closely monitor. 3. Anemia, secondary to end-stage renal disease. 4. Diabetes mellitus. 5. Possible asymmetrical pulmonary edema large pleural effusion requiring thoracentesis. 7. Hypertension. Blood pressure better controlled. Subjective Date patient seen: Feb 12, 2017 Constitutional: Reports: no symptoms HEENT: Reports: no symptoms Cardiovascular: Reports: no symptoms Respiratory: Reports: no symptoms Gastrointestinal/Abdominal: Reports: no symptoms Genitourinary: Reports: no symptoms Neurologic/Psychiatric: Reports: no symptoms Endocrine: Reports: no symptoms Hematologic/Lymphatic: Reports: no symptoms Allergies: Coded Allergies: No Known Allergies (Verified , 04/11/08) Objective Last 24 Hour Vital Signs Date Time Temp Pulse Resp B/P Pulse Ox O2 Delivery O2 Flow Rate FiO2 02/14/17 14:04 157/86 02/14/17 12:00 97.3 82 20 157/86 99 Nasal Cannula 4.0 02/14/17 10:12 Nasal Cannula 4.0 02/14/17 10:11 95 Nasal Cannula 4.0 02/14/17 10:10 87 20 Nasal Cannula 4.0 02/14/17 08:47 87 115/63 02/14/17 08:47 115/63 02/14/17 08:00 97.3 87 20 115/63 95 Nasal Cannula 4.0 02/14/17 06:25 140/88 02/14/17 04:00 98.1 89 18 131/65 93 Nasal Cannula 4.0 02/14/17 02:19 97.9 02/14/17 00:16 97.9 85 18 138/78 98 Room Air 02/13/17 22:16 133/73 02/13/17 20:00 98.4 80 17 158/74 100 Nasal Cannula 4.0 02/13/17 19:15 72 16 Nasal Cannula 4.0 02/13/17 19:10 98 Nasal Cannula 4.0 36 02/13/17 19:10 Nasal Cannula 4.0 36 02/13/17 18:00 77 114/96 02/13/17 16:00 97.6 78 16 104/58 96 Nasal Cannula 4.0 Intake and Output 02/13/17 02/14/17 19:00 07:00 Intake Total 250 ml 480 ml Balance 250 ml 480 ml Intake Oral 250 ml 480 ml # Voids 3 1 Height (Feet): 4 Height (Inches): 11.00 Weight (Pounds): 133 General Appearance: no apparent distress EENT: normal ENT inspection Neck: normal alignment Cardiovascular: normal rate Skin: warm/dry MARIELENA BERGMAN Feb 14, 2017 15:23
--- NOTE | 2017-02-14 16:10 | Pulmonology Progress Note ---
Assessment/Plan Problems: (1) Acute respiratory failure (2) Pleural effusion on right (3) Hypertension (4) ESRD (end stage renal disease) on dialysis (5) Amputation of left arm (6) Fluid overload (7) Amputated left leg Assessment/Plan thoracentesis can not be done becasue of low PLT and pt is agitated HD done, 2.2 liters revomed cxr improved a lot ativan /haldol for agitation dc to intermediate more awake, and comfortable Subjective ROS Limited/Unobtainable: No Constitutional: Reports: no symptoms HEENT: Repors: no symptoms Respiratory: Reports: no symptoms Allergies: Coded Allergies: No Known Allergies (Verified , 04/11/08) Objective Last 24 Hour Vital Signs Date Time Temp Pulse Resp B/P Pulse Ox O2 Delivery O2 Flow Rate FiO2 02/14/17 14:04 157/86 02/14/17 12:00 97.3 82 20 157/86 99 Nasal Cannula 4.0 02/14/17 10:12 Nasal Cannula 4.0 02/14/17 10:11 95 Nasal Cannula 4.0 02/14/17 10:10 87 20 Nasal Cannula 4.0 02/14/17 08:47 87 115/63 02/14/17 08:47 115/63 02/14/17 08:00 97.3 87 20 115/63 95 Nasal Cannula 4.0 02/14/17 06:25 140/88 02/14/17 04:00 98.1 89 18 131/65 93 Nasal Cannula 4.0 02/14/17 02:19 97.9 02/14/17 00:16 97.9 85 18 138/78 98 Room Air 02/13/17 22:16 133/73 02/13/17 20:00 98.4 80 17 158/74 100 Nasal Cannula 4.0 02/13/17 19:15 72 16 Nasal Cannula 4.0 02/13/17 19:10 98 Nasal Cannula 4.0 36 02/13/17 19:10 Nasal Cannula 4.0 36 02/13/17 18:00 77 114/96 Intake and Output 02/13/17 02/14/17 19:00 07:00 Intake Total 250 ml 480 ml Balance 250 ml 480 ml Intake Oral 250 ml 480 ml # Voids 3 1 General Appearance: WD/WN HEENT: normocephalic, atraumatic Respiratory/Chest: chest wall non-tender, lungs clear Cardiovascular: normal peripheral pulses, normal rate Abdomen: normal bowel sounds, soft, non tender Genitourinary: normal external genitalia Skin: no rash Current Medications Medications (Trade) Dose Ordered Sig/Jagdish Route PRN Reason Start Time Stop Time Status Last Admin Dose Admin Acetaminophen (Tylenol) 650 mg Q4H PRN ORAL T>100.5 02/10/17 01:30 03/12/17 01:29 Albuterol/ Ipratropium (DuoNeb 0.5-3(2.5)mg/3ml) 3 ml Q6H PRN HHN dyspnea 02/13/17 17:19 02/18/17 23:59 Amlodipine Besylate (Norvasc) 2.5 mg BID ORAL 02/11/17 18:00 03/13/17 17:59 02/14/17 08:47 Chlorhexidine Gluconate (Rosaura-Hex 2%) 1 applic DAILY TOPIC 02/10/17 09:00 03/12/17 08:59 Chlorhexidine Gluconate (Rosaura-Hex 2%) 1 applic QHS TOPIC 02/11/17 21:00 03/13/17 20:59 Dextrose (Dextrose 50%) STAT PRN IV Hypoglycemia 02/09/17 23:19 03/11/17 23:18 Dextrose (Dextrose 50%) STAT PRN IV Hypoglycemia 02/11/17 15:15 03/13/17 15:14 Haloperidol Lactate (Haldol) 2 mg Q4H PRN IM Agitation 02/10/17 22:15 03/12/17 22:14 Hydralazine HCl (Apresoline) 10 mg Q8HR ORAL 02/10/17 06:00 03/12/17 05:59 02/14/17 14:04 Insulin Aspart (NovoLOG) BEFORE MEALS AND HS SUBQ 02/11/17 16:30 03/13/17 16:29 02/14/17 12:17 Levothyroxine Sodium (Synthroid) 25 mcg ACBREAKFAST ORAL 02/12/17 06:30 03/14/17 06:29 02/14/17 06:25 Losartan Potassium (Cozaar) 25 mg DAILY ORAL 02/10/17 09:00 03/12/17 08:59 02/14/17 08:47 Morphine Sulfate (Morphine Sulfate) 1 mg Q4H PRN SUBQ PAIN 4-10 02/10/17 00:00 02/17/17 00:00 02/14/17 01:49 Ondansetron HCl (Zofran) 4 mg Q6H PRN IVP Nausea & Vomiting 02/09/17 23:20 03/11/17 23:19 Polyethylene Glycol (Miralax) 17 gm HSPRN PRN ORAL Constipation 02/09/17 23:20 03/11/17 23:19 Zolpidem Tartrate (Ambien) 5 mg HSPRN PRN ORAL Insomnia 02/09/17 23:20 03/11/17 23:19 02/14/17 01:47 VERONICA AMIN Feb 14, 2017 16:10
[2017-02-15] VITALS: BP 134/77
[2017-02-15 04:00] VITALS: BP 130/69
[2017-02-15] MEDS: Levothyroxine 25mcg tab ORAL SCH (05:52)
[2017-02-15] MEDS: HydrALAZINE 10mg Tab ORAL SCH ×2 (05:53→14:00)
[2017-02-15] MEDS: NovoLOG Insulin Flexpen SUBQ SCH ×3 (05:53→17:24)
[2017-02-15 08:00] VITALS: BP 111/72
--- NOTE | 2017-02-15 08:44 | Diagnostic Imaging Report ---
Indication:Abdominal pain Technique: Grayscale and duplex Doppler imaging of the abdomen performed. Comparison: None Findings: The liver is nodular and heterogeneous consistent with cirrhosis. Gallstones are present. Kidneys are echogenic. There is no hydronephrosis appreciated. There is trace free fluid within the pelvis. The the spleen is borderline in size measuring between 12 and 13 cm. There is no biliary ductal dilatation identified. CBD is 6 mm. Aorta is moderately calcified. Impression: Chronic liver disease/cirrhosis. Borderline splenomegaly. Trace ascites. Atherosclerotic disease Gallstones Suspected medical renal disease. Please correlate clinically
[2017-02-15] MEDS: Losartan 25mg tab ORAL SCH (09:00)
[2017-02-15] MEDS: Dyna-Hex 2% Top Sol 8oz TOPIC SCH (10:08)
[2017-02-15] MEDS: Morphine Sulfate 2mg/ml Inj SUBQ PRN ×2 (10:09→18:57)
--- NOTE | 2017-02-15 10:54 | General Progress Note ---
Assessment/Plan Status: stable Status Narrative wasnt dialysed yesterday Assessment/Plan Primary Impression: Fluid overload, in ESRD patinet with High K Additional Impression: Acute exacerbation of CHF (congestive heart failure) h/o DM HTN Encephalopathy Plan: HD today discussed with RN Adjust BP meds- Stop mind altering meds- per orders ? DC Subjective ROS Limited/Unobtainable: No Allergies: Coded Allergies: No Known Allergies (Verified , 04/11/08) Objective Last 24 Hour Vital Signs Date Time Temp Pulse Resp B/P Pulse Ox O2 Delivery O2 Flow Rate FiO2 02/15/17 09:00 75 111/72 02/15/17 09:00 111/72 02/15/17 08:16 75 16 Nasal Cannula 4.0 36 02/15/17 08:16 98 Nasal Cannula 4.0 02/15/17 08:16 Nasal Cannula 4.0 36 02/15/17 08:00 98.3 94 20 111/72 94 Nasal Cannula 4.0 02/15/17 05:53 130/69 02/15/17 04:00 97.6 80 20 130/69 98 Nasal Cannula 4.0 02/15/17 03:25 99 Nasal Cannula 4.0 02/15/17 03:25 78 16 Nasal Cannula 4.0 36 02/15/17 03:25 Nasal Cannula 4.0 36 02/15/17 00:00 97.8 87 21 134/77 98 Nasal Cannula 4.0 02/14/17 21:57 156/87 02/14/17 20:00 97.7 87 20 140/77 96 Nasal Cannula 4.0 02/14/17 19:09 86 147/80 02/14/17 18:00 02/14/17 16:00 97.2 86 20 147/80 99 Nasal Cannula 4.0 02/14/17 14:04 157/86 02/14/17 12:00 97.3 82 20 157/86 99 Nasal Cannula 4.0 Intake and Output 02/14/17 02/15/17 19:00 07:00 Intake Total 140 ml 240 ml Balance 140 ml 240 ml Intake Oral 140 ml 240 ml # Voids 1 1 # Bowel Movements 1 Height (Feet): 4 Height (Inches): 11.00 Weight (Pounds): 133 General Appearance: no apparent distress, lethargic Cardiovascular: regular rhythm Respiratory/Chest: decreased breath sounds Abdomen: soft, distended Objective other PE not changed DANIEL MARIEE Feb 15, 2017 10:54
[2017-02-15 12:00] VITALS: BP 132/75
--- NOTE | 2017-02-15 14:27 | General Progress Note ---
Assessment/Plan Assessment/Plan 1. Thrombocytopenia 2/2 cirrhosis and splenomegaly --> hepatitis and hiv panel pending --> abd us shows borderline splenomegaly and liver disease/cirrhosis 2. Anemia, secondary to chronic disease. Continue to closely monitor. 3. Anemia, secondary to end-stage renal disease. 4. Diabetes mellitus. 5. Possible asymmetrical pulmonary edema large pleural effusion requiring thoracentesis. 7. Hypertension. Blood pressure better controlled. Subjective Date patient seen: Feb 13, 2017 Constitutional: Reports: no symptoms HEENT: Reports: no symptoms Cardiovascular: Reports: no symptoms Respiratory: Reports: no symptoms Gastrointestinal/Abdominal: Reports: no symptoms Genitourinary: Reports: no symptoms Neurologic/Psychiatric: Reports: no symptoms Endocrine: Reports: no symptoms Hematologic/Lymphatic: Reports: anemia Allergies: Coded Allergies: No Known Allergies (Verified , 04/11/08) Subjective afebrile Objective Last 24 Hour Vital Signs Date Time Temp Pulse Resp B/P Pulse Ox O2 Delivery O2 Flow Rate FiO2 02/15/17 14:00 132/75 02/15/17 12:00 97.2 88 20 132/75 97 Nasal Cannula 4.0 02/15/17 09:00 75 111/72 02/15/17 09:00 111/72 02/15/17 08:16 75 16 Nasal Cannula 4.0 36 02/15/17 08:16 98 Nasal Cannula 4.0 02/15/17 08:16 Nasal Cannula 4.0 36 02/15/17 08:00 98.3 94 20 111/72 94 Nasal Cannula 4.0 02/15/17 05:53 130/69 02/15/17 04:00 97.6 80 20 130/69 98 Nasal Cannula 4.0 02/15/17 03:25 99 Nasal Cannula 4.0 02/15/17 03:25 78 16 Nasal Cannula 4.0 36 02/15/17 03:25 Nasal Cannula 4.0 36 02/15/17 00:00 97.8 87 21 134/77 98 Nasal Cannula 4.0 02/14/17 21:57 156/87 02/14/17 20:00 97.7 87 20 140/77 96 Nasal Cannula 4.0 02/14/17 19:09 86 147/80 02/14/17 18:00 02/14/17 16:00 97.2 86 20 147/80 99 Nasal Cannula 4.0 Intake and Output 02/14/17 02/15/17 19:00 07:00 Intake Total 140 ml 240 ml Balance 140 ml 240 ml Intake Oral 140 ml 240 ml # Voids 1 1 # Bowel Movements 1 Height (Feet): 4 Height (Inches): 11.00 Weight (Pounds): 133 General Appearance: no apparent distress EENT: PERRL/EOMI Neck: non-tender Cardiovascular: regular rhythm Respiratory/Chest: no respiratory distress 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
--- NOTE | 2017-02-15 14:27 | Pulmonology Progress Note ---
Assessment/Plan Problems: (1) Acute respiratory failure (2) Pleural effusion on right (3) Hypertension (4) ESRD (end stage renal disease) on dialysis (5) Amputation of left arm (6) Fluid overload (7) Amputated left leg Assessment/Plan stable cxr improved a lot dc to detention more awake, and comfortable symptomatic treatment Subjective ROS Limited/Unobtainable: No Constitutional: Reports: no symptoms HEENT: Repors: no symptoms Respiratory: Reports: no symptoms Allergies: Coded Allergies: No Known Allergies (Verified , 04/11/08) Objective Last 24 Hour Vital Signs Date Time Temp Pulse Resp B/P Pulse Ox O2 Delivery O2 Flow Rate FiO2 02/15/17 14:00 132/75 02/15/17 12:00 97.2 88 20 132/75 97 Nasal Cannula 4.0 02/15/17 09:00 75 111/72 02/15/17 09:00 111/72 02/15/17 08:16 75 16 Nasal Cannula 4.0 36 02/15/17 08:16 98 Nasal Cannula 4.0 02/15/17 08:16 Nasal Cannula 4.0 36 02/15/17 08:00 98.3 94 20 111/72 94 Nasal Cannula 4.0 02/15/17 05:53 130/69 02/15/17 04:00 97.6 80 20 130/69 98 Nasal Cannula 4.0 02/15/17 03:25 99 Nasal Cannula 4.0 02/15/17 03:25 78 16 Nasal Cannula 4.0 36 02/15/17 03:25 Nasal Cannula 4.0 36 02/15/17 00:00 97.8 87 21 134/77 98 Nasal Cannula 4.0 02/14/17 21:57 156/87 02/14/17 20:00 97.7 87 20 140/77 96 Nasal Cannula 4.0 02/14/17 19:09 86 147/80 02/14/17 18:00 02/14/17 16:00 97.2 86 20 147/80 99 Nasal Cannula 4.0 Intake and Output 02/14/17 02/15/17 19:00 07:00 Intake Total 140 ml 240 ml Balance 140 ml 240 ml Intake Oral 140 ml 240 ml # Voids 1 1 # Bowel Movements 1 General Appearance: WD/WN HEENT: normocephalic, anicteric Respiratory/Chest: chest wall non-tender, lungs clear Breasts: no masses Cardiovascular: normal peripheral pulses, regular rhythm Abdomen: normal bowel sounds, no organomegaly Genitourinary: normal external genitalia Skin: no rash, no ulcers Current Medications Medications (Trade) Dose Ordered Sig/Jagdish Route PRN Reason Start Time Stop Time Status Last Admin Dose Admin Acetaminophen (Tylenol) 650 mg Q4H PRN ORAL T>100.5 02/10/17 01:30 03/12/17 01:29 02/14/17 19:09 Albuterol/ Ipratropium (DuoNeb 0.5-3(2.5)mg/3ml) 3 ml Q6H PRN HHN dyspnea 02/13/17 17:19 02/18/17 23:59 Amlodipine Besylate (Norvasc) 2.5 mg BID ORAL 02/11/17 18:00 03/13/17 17:59 02/14/17 19:09 Chlorhexidine Gluconate (Rosaura-Hex 2%) 1 applic DAILY TOPIC 02/10/17 09:00 03/12/17 08:59 02/15/17 10:08 Chlorhexidine Gluconate (Rosaura-Hex 2%) 1 applic QHS TOPIC 02/11/17 21:00 03/13/17 20:59 Dextrose (Dextrose 50%) STAT PRN IV Hypoglycemia 02/09/17 23:19 03/11/17 23:18 Dextrose (Dextrose 50%) STAT PRN IV Hypoglycemia 02/11/17 15:15 03/13/17 15:14 Haloperidol Lactate (Haldol) 2 mg Q4H PRN IM Agitation 02/10/17 22:15 03/12/17 22:14 Hydralazine HCl (Apresoline) 10 mg Q8HR ORAL 02/10/17 06:00 03/12/17 05:59 02/15/17 05:53 Insulin Aspart (NovoLOG) BEFORE MEALS AND HS SUBQ 02/11/17 16:30 03/13/17 16:29 02/15/17 12:07 Levothyroxine Sodium (Synthroid) 25 mcg ACBREAKFAST ORAL 02/12/17 06:30 03/14/17 06:29 02/15/17 05:52 Losartan Potassium (Cozaar) 25 mg DAILY ORAL 02/10/17 09:00 03/12/17 08:59 02/14/17 08:47 Morphine Sulfate (Morphine Sulfate) 1 mg Q4H PRN SUBQ PAIN 4-10 02/10/17 00:00 02/17/17 00:00 02/15/17 10:09 Ondansetron HCl (Zofran) 4 mg Q6H PRN IVP Nausea & Vomiting 02/09/17 23:20 03/11/17 23:19 Polyethylene Glycol (Miralax) 17 gm HSPRN PRN ORAL Constipation 02/09/17 23:20 03/11/17 23:19 Zolpidem Tartrate (Ambien) 5 mg HSPRN PRN ORAL Insomnia 02/09/17 23:20 03/11/17 23:19 02/14/17 01:47 VERONICA AMIN Feb 15, 2017 14:27
[2017-02-15 16:00] VITALS: BP 116/62
--- NOTE | 2017-02-15 16:43 | General Progress Note ---
Assessment/Plan Assessment/Plan 1. Thrombocytopenia 2/2 cirrhosis and splenomegaly --> hepatitis and hiv panel pending --> abd us shows borderline splenomegaly and liver disease/cirrhosis 2. Anemia, secondary to chronic disease. Continue to closely monitor. 3. Decreasing H/H. R/o GI bleed --> ob positive --> GI follow up 3. Anemia, secondary to end-stage renal disease. 4. Diabetes mellitus. 5. Possible asymmetrical pulmonary edema large pleural effusion requiring thoracentesis. 7. Hypertension. Blood pressure better controlled. Subjective Date patient seen: Feb 14, 2017 Constitutional: Reports: no symptoms HEENT: Reports: no symptoms Cardiovascular: Reports: no symptoms Respiratory: Reports: no symptoms Gastrointestinal/Abdominal: Reports: no symptoms Genitourinary: Reports: no symptoms Neurologic/Psychiatric: Reports: no symptoms Endocrine: Reports: no symptoms Hematologic/Lymphatic: Reports: anemia Allergies: Coded Allergies: No Known Allergies (Verified , 04/11/08) Subjective afebrile, no N/V, more alert Objective Last 24 Hour Vital Signs Date Time Temp Pulse Resp B/P Pulse Ox O2 Delivery O2 Flow Rate FiO2 02/15/17 14:00 132/75 02/15/17 12:30 Nasal Cannula 4.0 36 02/15/17 12:00 97.2 88 20 132/75 97 Nasal Cannula 4.0 02/15/17 09:00 75 111/72 02/15/17 09:00 111/72 02/15/17 08:16 75 16 Nasal Cannula 4.0 36 02/15/17 08:16 98 Nasal Cannula 4.0 02/15/17 08:16 Nasal Cannula 4.0 36 02/15/17 08:00 98.3 94 20 111/72 94 Nasal Cannula 4.0 02/15/17 05:53 130/69 02/15/17 04:00 97.6 80 20 130/69 98 Nasal Cannula 4.0 02/15/17 03:25 99 Nasal Cannula 4.0 02/15/17 03:25 78 16 Nasal Cannula 4.0 36 02/15/17 03:25 Nasal Cannula 4.0 36 02/15/17 00:00 97.8 87 21 134/77 98 Nasal Cannula 4.0 02/14/17 21:57 156/87 02/14/17 20:00 97.7 87 20 140/77 96 Nasal Cannula 4.0 8/21/17 19:09 86 147/80 02/14/17 18:00 Intake and Output 02/14/17 02/15/17 19:00 07:00 Intake Total 140 ml 240 ml Balance 140 ml 240 ml Intake Oral 140 ml 240 ml # Voids 1 1 # Bowel Movements 1 Height (Feet): 4 Height (Inches): 11.00 Weight (Pounds): 133 General Appearance: no apparent distress EENT: normal ENT inspection Neck: normal alignment Cardiovascular: normal peripheral pulses Respiratory/Chest: normal breath sounds Abdomen: soft, no mass Neurologic: alert Skin: warm/dry, no diaphoresis Davis Hagan Feb 15, 2017 16:43
[2017-02-15 20:00] VITALS: BP 147/74
--- NOTE | 2017-02-16 10:18 | General Progress Note ---
Assessment/Plan Assessment/Plan 1. Thrombocytopenia 2/2 cirrhosis and splenomegaly --> abd us shows borderline splenomegaly and liver disease/cirrhosis 2. Anemia, secondary to chronic disease. Continue to closely monitor. 3. Decreasing H/H. R/o GI bleed --> ob positive --> GI follow up 3. Anemia, secondary to end-stage renal disease. 4. Diabetes mellitus. 5. Possible asymmetrical pulmonary edema large pleural effusion requiring thoracentesis. --> cxr improved 7. Hypertension. Blood pressure better controlled. Subjective Date patient seen: Feb 15, 2017 Constitutional: Reports: no symptoms HEENT: Reports: no symptoms Cardiovascular: Reports: no symptoms Respiratory: Reports: no symptoms Gastrointestinal/Abdominal: Reports: no symptoms Genitourinary: Reports: no symptoms Neurologic/Psychiatric: Reports: no symptoms Endocrine: Reports: no symptoms Hematologic/Lymphatic: Reports: anemia Allergies: Coded Allergies: No Known Allergies (Verified , 04/11/08) Subjective comfortable, dc to snf Objective Last 24 Hour Vital Signs Date Time Temp Pulse Resp B/P (MAP) Pulse Ox O2 Delivery O2 Flow Rate FiO2 02/15/17 20:00 97.0 92 20 147/74 94 Nasal Cannula 4.0 02/15/17 17:52 Nasal Cannula 4.0 36 02/15/17 17:19 92 116/62 02/15/17 16:00 97.3 86 20 116/62 92 Nasal Cannula 4.0 02/15/17 14:00 132/75 02/15/17 12:30 Nasal Cannula 4.0 36 02/15/17 12:00 97.2 88 20 132/75 97 Nasal Cannula 4.0 Height (Feet): 4 Height (Inches): 11.00 Weight (Pounds): 133 General Appearance: no apparent distress EENT: normal ENT inspection Neck: normal inspection Cardiovascular: normal rate Abdomen: no organomegaly Edema: no edema noted Pedal (L), no edema noted Pedal (R) 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
--- NOTE | 2017-02-17 14:46 | Discharge Summary ---
Discharge Summary Hospital Course Date of Admission Feb 07, 2017 at 20:20 Date of Discharge Feb 15, 2017 at 20:35 Admitting Diagnosis RESP FAILURE,HYPERKALEMIA HPI Karla Thapa is a 67 year old female who was admitted on Feb 07, 2017 at 20:20 for Respiratory Failure, Hyperkalemia Hospital Course [id number] Discharge Discharge Disposition Patient was discharged to SNF/Subacute Facility(03) Discharge Diagnoses: Tere Perez NP Feb 17, 2017 14:46
--- NOTE | 2017-02-17 21:24 | Cardiology Report ---
APPROVED REPORT EKG Measurement Heart [id number] Normal sinus rhythm Abnormal ECG
--- NOTE | 2017-02-18 06:32 | Discharge Summary 2 SIG ---
DATE OF ADMISSION: 02/07/2017 DATE OF DISCHARGE: 02/15/2017 CONSULTANTS: 1. Jose Raul Pham M.D. 2. Davis Hagan M.D. BRIEF HOSPITAL COURSE: The patient is a 67-year-old female with history of coronary artery disease, diabetes mellitus, end-stage renal failure with amputated left arm and leg, presented from retirement due to low oxygen saturation. Pulse oximetry was found to be 60% and the patient was fatigued. On evaluation at ED, the patient was placed on BiPAP. Chest x-ray showed right pleural effusion and was given Lasix. EKG showed normal sinus rhythm with no peaked T-waves. Potassium was 7.0 and creatinine 6.1. She was admitted to [facility] for acute respiratory failure, secondary to right pleural effusion and fluid overload, and hyperkalemia. She underwent stat hemodialysis and was ordered for thoracentesis, however, procedure cannot be done secondary to low platelets. Respiratory status improved post dialysis and was able to be weaned to nasal cannula. Thrombocytopenia was new onset and has been progressive over the last two months. MCV elevated to 110. Abdominal ultrasound showed a borderline splenomegaly with liver cirrhosis. The patient had a drop in hemoglobin. Stool OB was positive. ProBNP was greater than 70,000, questionable congestive heart failure or possible secondary to fluid overload due to missed dialysis. She has left ventricular systolic dysfunction, reportedly ejection fraction of 40%. TSH was elevated at 10 and was started on low-dose Synthroid. She has diabetes mellitus. Blood sugar was monitored. Hemoglobin A1c was 8.3. She was taken off insulin, secondary to episode of hypoglycemia, however, was restarted on sensitive sliding scale. The patient symptomatically was stable. Chest x-ray improved. The patient was then discharged back to retirement. FINAL DIAGNOSES: 1. Acute respiratory failure, secondary to fluid overload and pleural effusion. 2. End-stage renal disease, on hemodialysis. 3. Hypertension. 4. Amputated left arm and leg. 5. Hypothyroidism. 6. Thrombocytopenia, secondary to cirrhosis and splenomegaly. 7. Anemia, secondary to chronic disease. 8. Diabetes mellitus. 9. Hypertension. 10. Hyperkalemia. 11. Acute exacerbation of systolic heart failure. 12. Encephalopathy. 13. Episode of hypoglycemia. DISPOSITION: The patient was discharged to [facility]. DISCHARGE MEDICATIONS: Refer to medication list. Antonella Ly M.D. I have been assigned to dictate discharge summary on this account and I was not involved in the patient's management. Tere Perez N.P. DR: SHRUTHI JOB#: [id number] CC: CRISTY
== END 2017-02-15 20:35 | DRG 425 ==
LOC: EDBD 18:48 → EMR 20:19 → 2W 20:20 → EDBEDREQ 21:43 → 2W 22:59 → 4E 02-09 22:51
PROC: 5A09457 Assistance with Respiratory Ventilation, 24-96 Consecutive Hours, Continuous Positive Airway Pressure (ICD-10-PCS; principal; 2017-02-07)
PROC: 5A1D60Z (ICD-10-PCS; 2017-02-08)
PROC: 05HM33Z Insertion of Infusion Device into Right Internal Jugular Vein, Percutaneous Approach (ICD-10-PCS; 2017-02-08)
DX: E87.79 Other fluid overload (principal); J96.01 Acute respiratory failure with hypoxia; G93.40 Encephalopathy, unspecified; I50.23 Acute on chronic systolic (congestive) heart failure; J90 Pleural effusion, not elsewhere classified; I12.0 Hypertensive chronic kidney disease with stage 5 chronic kidney disease or end stage renal disease; N18.6 End stage renal disease; Z99.2 Dependence on renal dialysis; Z89.202 Acquired absence of left upper limb, unspecified level; Z89.612 Acquired absence of left leg above knee; E03.9 Hypothyroidism, unspecified; K74.60 Unspecified cirrhosis of liver; E87.5 Hyperkalemia; E11.649 Type 2 diabetes mellitus with hypoglycemia without coma; Z53.09 Procedure and treatment not carried out because of other contraindication; E78.00 Pure hypercholesterolemia, unspecified; K21.9 Gastro-esophageal reflux disease without esophagitis; Z87.891 Personal history of nicotine dependence; D63.1 Anemia in chronic kidney disease; Z79.4 Long term (current) use of insulin; Z91.15 Patient's noncompliance with renal dialysis
CPT/HCPCS: 36415; 36569; 71010; 76700; 76937; 80048; 80053; 82270; 82550; 82553; 82962; 83036; 83735; 83880; 84100; 84443; 84484; 84550; 85007; 85025; 85610; 85730; 86140; 87081; 93005; 93306; 94660; 94664; 94760; J1815